=== PATIENT | male | born 1965 | race African-American/Black ===

== ENCOUNTER 2021-08-23 04:34 | Emergency (ER) | payer MEDICAID, SELFPAY ==
[2021-08-23 04:41] VITALS: BP 196/108; PULSE 94; RESP 18; TEMP 36.3; O2SAT 96; BMI 33.0
--- NOTE | 2021-08-23 04:53 | ED_ITS ---
HPI - Ear Problem General Chief complaint: Ear Stated complaint: right ear injury- yesterday Time Seen by Provider: 08/23/21 04:35 Source: patient Mode of arrival: Ambulatory History of Present Illness HPI Narrative: 56M smoker presents with the chief complaint of an accidental injury to his right ear. He states that he was using a Q-tip to clean his ear when he stumbled a bit and fell sideways which cause the Q-tip to jam into his ear. He immediately felt pain and had bleeding and complains of decreased ability to hear from his ear. This happened at about 8:00 p.m. last night. He denies any fever or chills. He is not dizzy or having trouble with ambulation. He denies any nausea or vomiting. His tetanus is over 5 years old. Related Data Home Medications Medication Instructions Recorded Confirmed ketorolac 10 mg tablet 10 mg PO Q6H #0 08/12/12 Review of Systems Review of Systems Narrative: GENERAL: Denies chills, fatigue, malaise, fever, sweats. HEENT: See HPI RESPIRATORY: Denies dyspnea, cough, wheezing, hemoptysis, sputum. CARDIOVASCULAR: Denies chest pain, palpitations, orthopnea, edema, GASTROINTESTINAL: Denies nausea, vomiting, abdominal pain, diarrhea, constipation, melena. : Denies dysuria, frequency, incontinence, hematuria, urinary retention. MUSCULOSKELETAL: denies weakness, joint pain, or bony pain SKIN: Denies rash, skin lesions, or other NEUROLOGIC: Denies weakness, headache, numbness, change in speech, confusion, seizures, incoordination. PSYCHIATRIC: No concerning psychosocial issues. 12 point review of systems is negative except for those stated above Patient History Medical History Allergies (~2004) Anxiety and depression (~2009) Carpal tunnel syndrome (~1984) Chicken pox (~1977) Chronic back pain (~2009) Diabetes mellitus (~2009) Foot pain (~2009) Headache (~2009) Hearing loss History of urinary incontinence (~2009) Hypertension (~2004) Low testosterone (~2009) Near sighted (~2004) Numerous skin moles (~1964) PTSD (post-traumatic stress disorder) (~2011) Restless leg syndrome (~2004) Sleep apnea (~2009) TIA (transient ischemic attack) (~2013) Vision disorder Surgical History Anesthesia History of ankle surgery (~2011) History of carpal tunnel release (~1982) History of rhinoplasty (~1994) History of surgery (~2020) Family History Father Stroke Diabetes mellitus Mother Mental health problem Brother Prostate cancer Sister Hyperlipidemia Social History Smoking Status: Current some day smoker Smoking Status: Current some day smoker Exam Narrative Exam Narrative: GEN: AOx3 and in mild distress EYES: Pupils are equal, round, and reactive to light and accommodation. Ext raoccular muscles are intact bilaterally. There is no subconjunctival hemorrhage or exudate. ENT: R TM ruptured with some blood in the EAC, no contamination or foreign body. CHEST: Lungs are clear to auscultation bilaterally and free of wheezes, rales, or rhonchi. Heart rate is regular rhythm, there are no murmurs, clicks, rubs, or gallops. There is no chest wall tenderness. ABD: Abdomen is soft and nontender. There is no guarding or rebound. Bowel sounds are normal in all 4 quadrants. There is no mass or organomegaly. EXT: Full painless ROM of all extremities with no loss of sensation or strength. SKIN: Warm, pink, and dry. No erythema or rash Initial Vital Signs Initial Vital Signs: Vital Signs Temperature 97.4 F L 08/23/21 04:41 Pulse Rate 94 H 08/23/21 04:41 Respiratory Rate 18 08/23/21 04:41 Blood Pressure 196/108 H 08/23/21 04:41 Pulse Oximetry 96 08/23/21 04:41 Course Orders Ordered: Discontinued Medications Diphtheria/Tetanus/Acell Pertussis (Tet,Diph,Pertuss(Acell),Vac/Pf 0.5 Ml Syringe) 0.5 ml IM .ONCE ONE Stop: 08/23/21 04:50 Vital Signs Vital signs: Vital Signs - 8 hr 08/23/21 04:41 Temperature 97.4 F L Pulse Rate 94 H Respiratory Rate 18 Blood Pressure 196/108 H Pulse Oximetry 96 Medical Decision Making MDM Narrative Medical decision making narrative: Patient has a reassuring history and physical exam. This is a traumatic rupture in the absence of contamination or suspicion of infection. He has no ataxia, profound dizziness or nausea and vomiting. There is no current indication for antibiotics and his pain is well controlled. He lives locally and is appropriate for discharge with close follow-up. Return precautions have been given as questions have been answered to his apparent satisfaction Discharge Plan Departure Patient Disposition: Home Clinical Impression: Acute traumatic puncture of tympanic membrane Activity Restrictions/Additional Instructions: *You have been diagnosed with [acute right sided traumatic tympanic membrane rupture ] *What to do: *Please continue to take your regular medications as directed. *Please follow up with Dr. Jimenez at [facility], call this morning for an appointment. Let them know you were seen in the Emergency Department and that we ask that you be seen in follow up. We will electronically transmit a record of today's note *Return to Emergency Department if you should have any new, worsening or concerning symptoms, such as [fever greater than 101 F, shaking chills, worsening pain, persistent vomiting or other bothersome symptoms] Prescriptions: No Action ketorolac 10 MG tablet 10 mg PO Q6H Qty: 0 0RF Referrals: Farhat Jimenez MD [Physician] - Soni Montenegro MD [Primary Care Provider] -
[2021-08-23] MEDS: TET,DIPH,PERTUSS(ACELL),VAC/PF 0.5 ML SYRINGE IM (04:55)
== END 2021-08-23 05:10 | disposition home or self-care (01) ==
PROVIDERS: Emergency Provider Emergency Medicine; Family Provider Podiatrist; PCP Family Medicine
DX: S09.21XA Traumatic rupture of right ear drum, initial encounter (principal); Z23 Encounter for immunization
CPT/HCPCS: 90471; 99283; 90715

== ENCOUNTER → 2021-12-17 10:59 | Outpatient (CLI) | payer OTHER, MEDICAID, SELFPAY ==
[2021-12-17 11:46] LABS: Hemoglobin A1C% w Est Avg Glu 10.4 % (4.0-6.0)
[2021-12-17 12:15] LABS: Creatinine Urine Random 281.6 mg/dL
[2021-12-17 12:19] LABS: Alanine Aminotransferase 20 IU/L (<50); Albumin 4.1 g/dL (3.5-5.0); Albumin Globulin Ratio 1.2 (1.0-2.8); Alkaline Phosphatase 81 U/L (38-126); Aspartate Aminotransferase 21 IU/L (17-59); BUN Creatinine Ratio 14.7 (6-22); Bilirubin Total 0.6 mg/dL (0.2-1.3); Blood Urea Nitrogen 16 mg/dL (9-20); Calcium 8.8 mg/dL (8.4-10.2); Carbon Dioxide 28 mmol/L (22-32); Chloride 102 mmol/L (98-107); Cholesterol 269 mg/dL (140-199); Estimated Glomerular Filt Rate > 60 mL/min (>60); Globulin 3.4 g/dL (1.7-4.1); Glucose 273 mg/dL (70-100); HDL Cholesterol 37 mg/dL (40-60); HEMOLYSIS < 15 (0-50); LDL Cholesterol Calculated 197 mg/dL (<100); Potassium 3.8 mmol/L (3.4-5.1); Sodium 137 mmol/L (137-145); Total Protein 7.5 g/dL (6.3-8.2); Triglycerides 175 mg/dL (35-150)
[2021-12-17 12:21] LABS: Microalbumi Creatinin Ratio Ur 47.9 ug/mg CR (<30); Microalbumin Urine Random 13.5 mg/dL (0-1.6)
== END ==
PROVIDERS: Family Provider Podiatrist; PCP Family Medicine; Referring Provider Family Medicine; Visit Provider Family Medicine
DX: E11.42 Type 2 diabetes mellitus with diabetic polyneuropathy (principal)
CPT/HCPCS: 36415; 80053; 80061; 82043; 82570; 83036

== ENCOUNTER 2024-02-22 14:30 | Outpatient (RCR) | payer MEDICARE, OTHER, SELFPAY ==
--- NOTE | 2023-12-31 14:27 | PT.OIE ---
Current Diagnoses Radiculopathy, lumbar region (12/31/23) Past Medical History (Last Reviewed 08/23/21 @ 04:56 by Guille Rahman DO) Allergies (~2004) Anxiety and depression (~2009) Carpal tunnel syndrome (~1984) Chicken pox (~1977) Chronic back pain (~2009) Diabetes mellitus (~2009) Foot pain (~2009) Headache (~2009) Hearing loss History of urinary incontinence (~2009) Hypertension (~2004) Low testosterone (~2009) Near sighted (~2004) Numerous skin moles (~1964) PTSD (post-traumatic stress disorder) (~2011) Restless leg syndrome (~2004) Sleep apnea (~2009) TIA (transient ischemic attack) (~2013) Vision disorder Past Surgical History (Last Reviewed 08/23/21 @ 04:56 by Guille Rahman DO) Anesthesia History of ankle surgery (~2011) History of carpal tunnel release (~1982) History of rhinoplasty (~1994) History of surgery (~2020) Visit Care Team Role Provider Type Ana Rosa Matos DO Attending Provider Non-Staff Family Provider Primary Care Provider Referring Provider Specialty: Family Practice Address: [address] [place] [address], [facility] Email: Physical Therapy Initial Evaluation PT-OP-A Visit Information Start: 12/27/23 13:21 Freq: Status: Active Protocol: Document 12/31/23 13:01 [facility] (Rec: 12/31/23 13:50 [facility] [id number]) Out-Patient Physical Therapy Visit Information Visit Information Visit Type Initial Evaluation Visit Note 07/04 Visit Start Time 13:03 Visit Stop Time 13:48 Visit Number 1 Number of CUSTOMER SUCCESS MANAGER Visits 0 PT-OP-B Current Condition Start: 12/27/23 13:21 Freq: Status: Active Protocol: Document 12/31/23 13:01 [facility] (Rec: 12/31/23 13:50 [facility] [id number]) Current Condition History of Current Condition Onset Date worsening in September Current Complaints LBP, B knee pain, R thigh pain History of Current Condition Pt reports back pain starting 10/07/23. 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 he didn't feel it until the following sunday then saw the doctor on sunday. They gave him 2 muscle relaxors and his pain was pretty severe and BP 180/80 ( it had never been that high). He did labwork d/t this and gve him mm relaxors and told him to take tyllenol after that. Pt as told he couldn't get pain meds until starting PT. THat first week, he was in a ton of pain, but once the meds kicked in and the pain subsided some. Pain is mostly at R SI and what scared him the most was pt was getting a dull pain in R quad. He has had neuropathy in the past and had gabapentin fo rthat and had hx of not being able to get out of bed. THe thigh hasn ' been as bad. His knees are now getting sharp pain though and it starts when he sleeps. He sleeps w/pillow btwn legs and feels like poor circulation or first thing before cramp in knees. When he is at his worst, he walks with a cane. hx of 2013 L ankle achilles repair and built up the arch and was supposed to have surgery on R to build up arch but insurance wouldn't cover. 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 He has done PT here in the past (for LB and Knees)and it helped him move better and was DC when he was doing well. He got a membership at [employer] and used treadmill and slowly starting to use the strength machines. He hasn't been able to go back since his back pain inc. 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 He is waiting to resume working until finishes PT. He is in a return to work program w/SS. B knee pain at night has been about 6 months. 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 Treatment Goals Patient/Caregiver Goals Get more mobile ,help him know what to do vs not to do, determine if he needs further assessment from doctors, get strengthening exercises that are safe PT-OP-C Subjective Start: 12/27/23 13:21 Freq: Status: Active Protocol: Document 12/31/23 13:01 [facility] (Rec: 12/31/23 13:50 [facility] [id number]) OP-PT Pain Assessment Location B knees Pain Location Details ant knees Description Sharp Frequency Intermittent Other Pain Aggravating Factors at night; extended activity Other Pain Alleviating Factors change in position (now lingering more) LB Pain Location Details R SI and LB Description Dull Frequency Frequent Radiating Location R ant thigh Pain Aggravating Factors Activity,Walking,Stair Climbing,Bending,Lifting Other Pain Aggravating Factors leaning to R, sit on some seats, Other Pain Alleviating Factors stop activity that hurts it PT-OP-D Balance Start: 12/27/23 13:21 Freq: Status: Active Protocol: Document 12/31/23 13:01 [facility] (Rec: 12/31/23 13[facility]50 [id number] Balance Tests Single Limb Standing Single Limb- Right 20 sec w/inc deviation Single Limb- Left 20 sec PT-OP-F Manual Assessment Start: 12/27/23 13:21 Freq: Status: Active Protocol: Document 12/31/23 13:01 [facility] (Rec: 12/31/23 13:50 [id number] Manual Assessments Joint Mobility Assessment Joint Mobility Assessment L iliac crest is higher PT-OP-G Mobility & Gait Start: 12/27/23 13:21 Freq: Status: Active Protocol: Document 12/31/23 13:01 [facility] (Rec: 12/31/23 13:50 [facility] [id number]) OP Gait Assessment Comments Gait Comments dec stance time RLE, lat lean to R w/RLE stance PT-OP-J Posture/Palpation/Skin Start: 12/27/23 13:21 Freq: Status: Active Protocol: Document 12/31/23 13:01 [facility] (Rec: 12/31/23 13:50 [facility] [id number]) Posture Evaluation Barrera Postural Classification System Vertical Compression Test 2 Elbow Flexion Test 1 Lumbar Protective Mechanism Left AP 0 Lumbar Protective Mechanism Right AP 0 Lumbar Protective Mechanism Left PA 3 Comments Posture Comments L shoulder higher; L pelvic shear, R SB pt rocks side to side to dec pain PT-OP-K Range of Motion Start: 12/27/23 13:21 Freq: Status: Active Protocol: Document 12/31/23 13:01 [facility] (Rec: 12/31/23 13:50 [facility] [id number]) Lumbar Spine Range of Motion Lumbar Spine Active Percentage Flexion 10 Extension 50 Rotation Left 40 Rotation Right 60 Lateral Flexion Left 80 Lateral Flexion Right 50 Comments pain R SB; discomfort w/ext; bend over w/pelvis blocked about mid thigh; mid shins w/o pelvis blocked PT-OP-L Special Tests Start: 12/27/23 13:21 Freq: Status: Active Protocol: Document 12/31/23 13:01 [facility] (Rec: 12/31/23 13:50 [facility] [id number]) Special Tests Lumbar Spine Special Tests ext sit Test Results positive R w/inc tension Slump Test Results positive B w/pain in back-RLE dec range PT-OP-Q Treatments Start: 12/27/23 13:21 Freq: Status: Active Protocol: Document 12/31/23 13:01 [facility] (Rec: 12/31/23 13:50 [facility] [id number]) Self-Care/Home Management Treatment Education Other Education 9 min PT-OP-T Assessment and Plan Start: 12/27/23 13:21 Freq: Status: Active Protocol: Document 12/31/23 13:01 [facility] (Rec: 12/31/23 13:50 [facility] [id number]) Physical Therapy Assessment Rehab Potential Rehabilitation Potential Good Evaluation Complexity Number of Personal Factors/Comorbidities 3 or More Number of Body Systems Impaired 4 or More Clinical Presentation at Evaluation Evolving Impairments Impairments Activity Tolerance,Balance, Functional Activities, Functional Mobility,Gait,Pain, Posture,ROM,Soft Tissue Mobility,Strength,Transfers Goals lifting Short Term Goal (STG) Pt will have fwd flex w/pelvis blocked to at least mid patella and have equal SB ea direction w/o pain STG Duration 02/03 Jail Goal (LTG) Pt will be able to demonstrate good lifting mechanics and turning mechanics w/o cues LTG Duration 03/15 strength Short Term Goal (STG) Pt will be indep w/HEP STG Duration 02/06 Jail Goal (LTG) pt will score at least 3/5 on LPM in all planes and EFT along w/at least 4+/5 on all BLE MMT to show improved stability to allow greater ease in day LTG Duration 03/15 PARISA Impairment 15/50 Short Term Goal (STG) Pt will improve PARISA score to no greater than 10/50 to show improved functional ability. STG Duration 02/03 Jail Goal (LTG) Pt will improve PARISA score to no greater than 5/50 to show improved functional ability. LTG Duration 03/24 Six Impairment sleep Impairment . Short Term Goal (STG) Pt will be able to prop himself indep at home for improved alignment during sleep STG Duration 01/23 Jail Goal (LTG) Pt will be able to sleep through the night and be able to wake w/o increased pain in back, leg or knees LTG Duration 03/14 Assessment Summary Assessment Pt presents w/R sided SI/LBP pain w/R ant thigh pain and B knee pain w/positive neural tension tests B w/inc tension on R. He has dec core stability noted and likely has dec hip stability based on gait, but further testing would be beneficial. He does has some dec balance and gait abonormalities along w/uneven pelvis level and position in standing likely contributing to pain. pt would benefit from skilled PT in order to return to typical function w/o pain. Physical Therapy Plan Frequency and Duration Frequency of Treatment 2x/Week Duration of treatment (weeks) 12 Plan of Care Start Date 12/31/23 Plan of Care End Date 03/24/24 Therapeutic Interventions Therapeutic Interventions Balance Training,Gait Training ,Home Exercise Program,Joint Mobilizations,Manual Therapy, Neuromuscular Re-education, Orthotic/Prosthetic Management ,Patient/Caregiver Education, Self-Care/Home Management,Soft Tissue Mobilization,Taping, Therapeutic Activities, Therapeutic Exercises Modalities Cold Pack/Ice Massage,Electric Stimulation,Hot Packs, Infrared Therapy,Traction- Mechanical,Ultrasound Next Visit Focus/Plan Next Note Type Treatment Note Next Visit Plan MMT BLEs, start hip stretches and supine core exercises including bridges; manual to hip and innominate
--- NOTE | 2023-12-31 14:27 | PT.OPPOC ---
Physical, Occupational & Speech Therapy At [facility] Current Diagnoses Radiculopathy, lumbar region (12/31/23) Visit Care Team Role Provider Type Ana Rosa Matos DO Attending Provider Non-Staff Family Provider Primary Care Provider Referring Provider Specialty: Family Practice Address: [facility] [place], [address] Email: Plan Of Care PT-OP-T Assessment and Plan Start: 12/27/23 13:21 Freq: Status: Active Protocol: Document 12/31/23 13:01 [facility] (Rec: 12/31/23 13:50 [facility] [id number]) Physical Therapy Assessment Rehab Potential Rehabilitation Potential Good Evaluation Complexity Number of Personal Factors/Comorbidities 3 or More Number of Body Systems Impaired 4 or More Clinical Presentation at Evaluation Evolving Impairments Impairments Activity Tolerance,Balance, Functional Activities, Functional Mobility,Gait,Pain, Posture,ROM,Soft Tissue Mobility,Strength,Transfers Goals lifting Short Term Goal (STG) Pt will have fwd flex w/pelvis blocked to at least mid patella and have equal SB ea direction w/o pain STG Duration 02/03 Detention Goal (LTG) Pt will be able to demonstrate good lifting mechanics and turning mechanics w/o cues LTG Duration 03/15 strength Short Term Goal (STG) Pt will be indep w/HEP STG Duration 02/06 Claims Consultant Goal (LTG) pt will score at least 3/5 on LPM in all planes and EFT along w/at least 4+/5 on all BLE MMT to show improved stability to allow greater ease in day LTG Duration 03/15 PARISA Impairment 15/50 Short Term Goal (STG) Pt will improve PARISA score to no greater than 10/50 to show improved functional ability. STG Duration 02/03 Detention Goal (LTG) Pt will improve PARISA score to no greater than 5/50 to show improved functional ability. LTG Duration 03/24 Six Impairment sleep Impairment . Short Term Goal (STG) Pt will be able to prop himself indep at home for improved alignment during sleep STG Duration 01/23 Detention Goal (LTG) Pt will be able to sleep through the night and be able to wake w/o increased pain in back, leg or knees LTG Duration 03/14 Assessment Summary Assessment Pt presents w/R sided SI/LBP pain w/R ant thigh pain and B knee pain w/positive neural tension tests B w/inc tension on R. He has dec core stability noted and likely has dec hip stability based on gait, but further testing would be beneficial. He does has some dec balance and gait abonormalities along w/uneven pelvis level and position in standing likely contributing to pain. pt would benefit from skilled PT in order to return to typical function w/o pain. Physical Therapy Plan Frequency and Duration Frequency of Treatment 2x/Week Duration of treatment (weeks) 12 Plan of Care Start Date 12/31/23 Plan of Care End Date 03/24/24 Therapeutic Interventions Therapeutic Interventions Balance Training,Gait Training ,Home Exercise Program,Joint Mobilizations,Manual Therapy, Neuromuscular Re-education, Orthotic/Prosthetic Management ,Patient/Caregiver Education, Self-Care/Home Management,Soft Tissue Mobilization,Taping, Therapeutic Activities, Therapeutic Exercises Modalities Cold Pack/Ice Massage,Electric Stimulation,Hot Packs, Infrared Therapy,Traction- Mechanical,Ultrasound Next Visit Focus/Plan Next Note Type Treatment Note Next Visit Plan MMT BLEs, start hip stretches and supine core exercises including bridges; manual to hip and innominate Plan of Care Dates Plan of Care Start Date 12/31/23 Plan of Care End Date 03/24/24 Electronically Signed by: Ladan Jimenez, PT 12/31/23 [id number] If you are in agreement with this Plan of Care, please return a signed and dated copy. I have reviewed this Plan of Care and certify that the skilled therapy services above are required to meet the patient?s needs. Physician Signature Date Printed Name and Credentials Clinical Instructor Signature Printed Name and Credentials
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
--- NOTE | 2024-01-10 10:06 | PT-OP ANOTE ---
Phoned patient, spoke with patient regarding no show policy; fee, and discharge with 2 no shows. Patient comments that he doesn't usually have 2 appts and he forgot about this one. 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
--- NOTE | 2024-01-16 15:20 | PT.OTN ---
Current Diagnoses Radiculopathy, lumbar region (01/16/24) Physical Therapy Treatment Note PT-OP-A Visit Information Start: 12/27/23 13:21 Freq: Status: Active Protocol: Document 01/16/24 14:39 [facility] (Rec: 01/16/24 15:20 [facility] [id number]) Out-Patient Physical Therapy Visit Information Visit Information Visit Type Treatment Note Visit Start Time 14:36 Visit Stop Time 15:15 Visit Number 4 Number of CONE TRUCKER Visits 0 PT-OP-B Current Condition Start: 12/27/23 13:21 Freq: Status: Active Protocol: Document 12/31/23 13:01 [facility] (Rec: 12/31/23 13:50 [facility] [id number]) Current Condition History of Current Condition Onset Date worsening in September Current Complaints LBP, B knee pain, R thigh pain History of Current Condition Pt reports back pain starting 10/07/23. 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 he didn't feel it until the following sunday then saw the doctor on sunday. They gave him 2 muscle relaxors and his pain was pretty severe and BP 180/80 ( it had never been that high). He did labwork d/t this and gve him mm relaxors and told him to take tyllenol after that. Pt as told he couldn't get pain meds until starting PT. THat first week, he was in a ton of pain, but once the meds kicked in and the pain subsided some. Pain is mostly at R SI and what scared him the most was pt was getting a dull pain in R quad. He has had neuropathy in the past and had gabapentin fo rthat and had hx of not being able to get out of bed. THe thigh hasn ' been as bad. His knees are now getting sharp pain though and it starts when he sleeps. He sleeps w/pillow btwn legs and feels like poor circulation or first thing before cramp in knees. When he is at his worst, he walks with a cane. hx of 2013 L ankle achilles repair and built up the arch and was supposed to have surgery on R to build up arch but insurance wouldn't cover. 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 He has done PT here in the past (for LB and Knees)and it helped him move better and was DC when he was doing well. He got a membership at [employer] and used treadmill and slowly starting to use the strength machines. He hasn't been able to go back since his back pain inc. 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 He is waiting to resume working until finishes PT. He is in a return to work program w/SS. B knee pain at night has been about 6 months. 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 Treatment Goals Patient/Caregiver Goals Get more mobile ,help him know what to do vs not to do, determine if he needs further assessment from doctors, get strengthening exercises that are safe PT-OP-C Subjective Start: 12/27/23 13:21 Freq: Status: Active Protocol: Document 01/16/24 14:39 [facility] (Rec: 01/16/24 15:20 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 Knees are getting better w/sleeping on back. PT-OP-D Balance Start: 12/27/23 13:21 Freq: Status: Active Protocol: Document 12/31/23 13:01 [facility] (Rec: 12/31/23 13:50 [facility] [id number]) Balance Tests Single Limb Standing Single Limb- Right 20 sec w/inc deviation Single Limb- Left 20 sec PT-OP-F Manual Assessment Start: 12/27/23 13:21 Freq: Status: Active Protocol: Document 12/31/23 13:01 [facility] (Rec: 12/31/23 13:50 [facility] [id number]) Manual Assessments Joint Mobility Assessment Joint Mobility Assessment L iliac crest is higher PT-OP-G Mobility & Gait Start: 12/27/23 13:21 Freq: Status: Active Protocol: Document 12/31/23 13:01 [facility] (Rec: 12/31/23 13:50 [facility] [id number]) OP Gait Assessment Comments Gait Comments dec stance time RLE, lat lean to R w/RLE stance PT-OP-J Posture/Palpation/Skin Start: 12/27/23 13:21 Freq: Status: Active Protocol: Document 12/31/23 13:01 [facility] (Rec: 12/31/23 13:50 [facility] [id number]) Posture Evaluation [facility] Postural Classification System Vertical Compression Test 2 Elbow Flexion Test 1 Lumbar Protective Mechanism Left AP 0 Lumbar Protective Mechanism Right AP 0 Lumbar Protective Mechanism Left PA 3 Comments Posture Comments L shoulder higher; L pelvic shear, R SB pt rocks side to side to dec pain PT-OP-K Range of Motion Start: 12/27/23 13:21 Freq: Status: Active Protocol: Document 12/31/23 13:01 [facility] (Rec: 12/31/23 13:50 [facility] [id number]) Lumbar Spine Range of Motion Lumbar Spine Active Percentage Flexion 10 Extension 50 Rotation Left 40 Rotation Right 60 Lateral Flexion Left 80 Lateral Flexion Right 50 Comments pain R SB; discomfort w/ext; bend over w/pelvis blocked about mid thigh; mid shins w/o pelvis blocked PT-OP-L Special Tests Start: 12/27/23 13:21 Freq: Status: Active Protocol: Document 12/31/23 13:01 [facility] (Rec: 12/31/23 13:50 [facility] [id number]) Special Tests Lumbar Spine Special Tests ext sit Test Results positive R w/inc tension Slump Test Results positive B w/pain in back-RLE dec range PT-OP-Q Treatments Start: 12/27/23 13:21 Freq: Status: Active Protocol: Document 01/16/24 14:39 [facility] (Rec: 01/16/24 15:20 [facility] [id number]) Therapeutic Exercises Supine Exercises abdominal bracing with LE extension Supine Exercise Name LE ext then heel slide Side bilateral Equipment Used x10 figure 4 stretch Side bilateral Reps/Minutes 60 sec Breathing Supine Exercise Name diaphragmatic Side bilateral Reps/Minutes 8 Comments PT facilitation into abdomen TA Side bilateral Reps/Minutes x5 Comments cues breathing BKFO Side bilateral Reps/Minutes 5 B w/o resistance; Lvl 2 x10 Comments V/c/tatile cueing limit back rotation, knee position, knee ankle alignment Stretching Supine Exercise Name Single knee to chest, double knee to chest, Side bilateral Reps/Minutes 60 sec ea Comments VC for single leg knee to chest Manual Therapy Treatment Consent Patient gave verbal consent for manual Yes treatment Soft Tissue Mobilization ITB Body Location B Mobilization Type Rolling Intensity/Depth Moderate Body Position Hooklying Comments w/IR Joint Mobilizations hip Comments B ER free the ball hooklying FM; R IR free the ball hooklying FM; R inf [place] [facility] PT-OP-T Assessment and Plan Start: 12/27/23 13:21 Freq: Status: Active Protocol: Document 01/16/24 14:39 [facility] (Rec: 01/16/24 15:20 [facility] [id number]) Physical Therapy Assessment Goals lifting Short Term Goal (STG) Pt will have fwd flex w/pelvis blocked to at least mid patella and have equal SB ea direction w/o pain STG Duration 02/03 Shelter Goal (LTG) Pt will be able to demonstrate good lifting mechanics and turning mechanics w/o cues LTG Duration 03/15 strength Short Term Goal (STG) Pt will be indep w/HEP STG Duration 02/06 Shelter Goal (LTG) pt will score at least 3/5 on LPM in all planes and EFT along w/at least 4+/5 on all BLE MMT to show improved stability to allow greater ease in day LTG Duration 03/15 PARISA Impairment 15/50 Short Term Goal (STG) Pt will improve PARISA score to no greater than 10/50 to show improved functional ability. STG Duration 02/03 Recreation Clerk Goal (LTG) Pt will improve PARISA score to no greater than 5/50 to show improved functional ability. LTG Duration 03/24 Six Impairment sleep Impairment . Short Term Goal (STG) Pt will be able to prop himself indep at home for improved alignment during sleep STG Duration 01/23 Shelter Goal (LTG) Pt will be able to sleep through the night and be able to wake w/o increased pain in back, leg or knees LTG Duration 03/14 Assessment Summary Assessment Pt did well with exercises and required very min cues. No inc pain w/addition of resistance Physical Therapy Plan Frequency and Duration Frequency of Treatment 2x/Week Duration of treatment (weeks) 12 Plan of Care Start Date 12/31/23 Plan of Care End Date 03/24/24 Next Visit Focus/Plan Next Note Type Treatment Note Next Visit Plan cont core exercises; work on hip and innominate mobility
--- NOTE | 2024-01-23 13:00 | PT.OTN ---
Current Diagnoses Radiculopathy, lumbar region (01/23/24) Physical Therapy Treatment Note PT-OP-A Visit Information Start: 12/27/23 13:21 Freq: Status: Active Protocol: Document 01/23/24 08:08 [facility] (Rec: 01/23/24 10:32 [facility] [id number]) Out-Patient Physical Therapy Visit Information Visit Information Visit Type Treatment Note Visit Note 09/01 Access Code: [email or web address] Visit Start Time 09:48 Visit Stop Time 10:30 Visit Number 5 Number of HOSPICE EDUCATOR Visits 1 PT-OP-B Current Condition Start: 12/27/23 13:21 Freq: Status: Active Protocol: Document 12/31/23 13:01 [facility] (Rec: 12/31/23 13:50 [facility] [id number]) Current Condition History of Current Condition Onset Date worsening in September Current Complaints LBP, B knee pain, R thigh pain History of Current Condition Pt reports back pain starting 10/07/23. 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 he didn't feel it until the following sunday then saw the doctor on sunday. They gave him 2 muscle relaxors and his pain was pretty severe and BP 180/80 ( it had never been that high). He did labwork d/t this and gve him mm relaxors and told him to take tyllenol after that. Pt as told he couldn't get pain meds until starting PT. THat first week, he was in a ton of pain, but once the meds kicked in and the pain subsided some. Pain is mostly at R SI and what scared him the most was pt was getting a dull pain in R quad. He has had neuropathy in the past and had gabapentin fo rthat and had hx of not being able to get out of bed. THe thigh hasn ' been as bad. His knees are now getting sharp pain though and it starts when he sleeps. He sleeps w/pillow btwn legs and feels like poor circulation or first thing before cramp in knees. When he is at his worst, he walks with a cane. hx of 2013 L ankle achilles repair and built up the arch and was supposed to have surgery on R to build up arch but insurance wouldn't cover. 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 He has done PT here in the past (for LB and Knees)and it helped him move better and was DC when he was doing well. He got a membership at [employer] and used treadmill and slowly starting to use the strength machines. He hasn't been able to go back since his back pain inc. 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 He is waiting to resume working until finishes PT. He is in a return to work program w/SS. B knee pain at night has been about 6 months. 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 Treatment Goals Patient/Caregiver Goals Get more mobile ,help him know what to do vs not to do, determine if he needs further assessment from doctors, get strengthening exercises that are safe PT-OP-C Subjective Start: 12/27/23 13:21 Freq: Status: Active Protocol: Document 01/23/24 08:08 [facility] (Rec: 01/23/24 10:32 [id number]) OP-PT Subjective Patient Comments Patient Comments Patient reports the back is better, reports back to football practice performing squats, standing 2 hours and stretching. Patient reports having bilateral hip pain post football practice. Patient rates back pain 1/10 hips 2/10 . left HS lacking 25 deg right 30 AROM 90/90 position PT-OP-D Balance Start: 12/27/23 13:21 Freq: Status: Active Protocol: Document 12/31/23 13:01 [facility] (Rec: 12/31/23 13:50 [facility] [id number]) Balance Tests Single Limb Standing Single Limb- Right 20 sec w/inc deviation Single Limb- Left 20 sec PT-OP-F Manual Assessment Start: 12/27/23 13:21 Freq: Status: Active Protocol: Document 12/31/23 13:01 [facility] (Rec: 12/31/23 13:50 [facility] [id number]) Manual Assessments Joint Mobility Assessment Joint Mobility Assessment L iliac crest is higher PT-OP-G Mobility & Gait Start: 12/27/23 13:21 Freq: Status: Active Protocol: Document 12/31/23 13:01 [facility] (Rec: 12/31/23 13:50 [facility] [id number]) OP Gait Assessment Comments Gait Comments dec stance time RLE, lat lean to R w/RLE stance PT-OP-J Posture/Palpation/Skin Start: 12/27/23 13:21 Freq: Status: Active Protocol: Document 12/31/23 13:01 [facility] (Rec: 12/31/23 13:50 [facility] [id number]) Posture Evaluation [facility] Postural Classification System Vertical Compression Test 2 Elbow Flexion Test 1 Lumbar Protective Mechanism Left AP 0 Lumbar Protective Mechanism Right AP 0 Lumbar Protective Mechanism Left PA 3 Comments Posture Comments L shoulder higher; L pelvic shear, R SB pt rocks side to side to dec pain PT-OP-K Range of Motion Start: 12/27/23 13:21 Freq: Status: Active Protocol: Document 12/31/23 13:01 [facility] (Rec: 12/31/23 13:50 [facility] [id number]) Lumbar Spine Range of Motion Lumbar Spine Active Percentage Flexion 10 Extension 50 Rotation Left 40 Rotation Right 60 Lateral Flexion Left 80 Lateral Flexion Right 50 Comments pain R SB; discomfort w/ext; bend over w/pelvis blocked about mid thigh; mid shins w/o pelvis blocked PT-OP-L Special Tests Start: 12/27/23 13:21 Freq: Status: Active Protocol: Document 12/31/23 13:01 [facility] (Rec: 12/31/23 13:50 [facility] [id number]) Special Tests Lumbar Spine Special Tests ext sit Test Results positive R w/inc tension Slump Test Results positive B w/pain in back-RLE dec range PT-OP-Q Treatments Start: 12/27/23 13:21 Freq: Status: Active Protocol: Document 01/23/24 08:08 [facility] (Rec: 01/23/24 10:32 [facility] [id number]) Therapeutic Exercises Supine Exercises HS stretch Side bilateral Reps/Minutes 60 sec X 2 each LE figure 4 stretch Side bilateral Reps/Minutes 60 sec Stretching Supine Exercise Name Single knee to chest, double knee to chest, Side bilateral Reps/Minutes 60 sec ea Comments VC for breathing from diaphragm Sitting Exercises seated hip abduction with band Side bilateral Resistance level 3 green band Reps/Minutes X15 without hold then X1 one minute hold Standing Exercises Pallof press Side bilateral Resistance level 3 band green Reps/Minutes 15 X 2 squat Standing Exercise Name with band Side bilateral Resistance level 3 band Reps/Minutes X15 X 2 Therapeutic Activity Therapeutic Activity sit to stand Reps/Minutes X5 Comments Patient ed mechanics of sit to stand and self tactile cues for hip hinge. Manual Therapy Treatment Soft Tissue Mobilization gluteal, piriformis area Body Location bilateral Mobilization Type Cross-Friction,Rolling Intensity/Depth Moderate Body Position Sidelying LB Body Location lumbar paraspinals bilateral Mobilization Type Sustained Pressure Intensity/Depth Moderate Body Position Sidelying PT-OP-T Assessment and Plan Start: 12/27/23 13:21 Freq: Status: Active Protocol: Document 01/23/24 08:08 [facility] (Rec: 01/23/24 10:32 [facility] [id number]) Physical Therapy Assessment Goals lifting Short Term Goal (STG) Pt will have fwd flex w/pelvis blocked to at least mid patella and have equal SB ea direction w/o pain STG Duration 02/03 Pocket Builder Goal (LTG) Pt will be able to demonstrate good lifting mechanics and turning mechanics w/o cues LTG Duration 03/15 strength Short Term Goal (STG) Pt will be indep w/HEP STG Duration 02/06 Pocket Builder Goal (LTG) pt will score at least 3/5 on LPM in all planes and EFT along w/at least 4+/5 on all BLE MMT to show improved stability to allow greater ease in day LTG Duration 03/15 PARISA Impairment 15/50 Short Term Goal (STG) Pt will improve PARISA score to no greater than 10/50 to show improved functional ability. STG Duration 02/03 Skilled Nursing Goal (LTG) Pt will improve PARISA score to no greater than 5/50 to show improved functional ability. LTG Duration 03/24 Six Impairment sleep Impairment . Short Term Goal (STG) Pt will be able to prop himself indep at home for improved alignment during sleep STG Duration 01/23 Pocket Builder Goal (LTG) Pt will be able to sleep through the night and be able to wake w/o increased pain in back, leg or knees LTG Duration 03/14 Assessment Summary Assessment Sánchez reports feeling good end of session. Good follow through with hip hinge during squats. Patient into session with reports of no increased back pain with assisting with football practice. Physical Therapy Plan Frequency and Duration Frequency of Treatment 2x/Week Duration of treatment (weeks) 12 Plan of Care Start Date 12/31/23 Plan of Care End Date 03/24/24 Next Visit Focus/Plan Next Note Type Treatment Note Next Visit Plan cont core exercises; work on hip and innominate mobility
--- NOTE | 2024-01-29 16:09 | PT.OTN ---
Current Diagnoses Radiculopathy, lumbar region (01/29/24) Physical Therapy Treatment Note PT-OP-A Visit Information Start: 12/27/23 13:21 Freq: Status: Active Protocol: Document 01/29/24 15:18 [facility] (Rec: 01/29/24 16:09 [facility] [id number]) Out-Patient Physical Therapy Visit Information Visit Information Visit Type Treatment Note Visit Note 10/02 Access Code: [email or web address] Visit Start Time 15:20 Visit Stop Time 16:00 Visit Number 6 Number of DONOR SERVICES TEAM LEADER Visits 0 PT-OP-B Current Condition Start: 12/27/23 13:21 Freq: Status: Active Protocol: Document 12/31/23 13:01 [facility] (Rec: 12/31/23 13:50 [facility] [id number]) Current Condition History of Current Condition Onset Date worsening in September Current Complaints LBP, B knee pain, R thigh pain History of Current Condition Pt reports back pain starting 10/07/23. 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 he didn't feel it until the following sunday then saw the doctor on sunday. They gave him 2 muscle relaxors and his pain was pretty severe and BP 180/80 ( it had never been that high). He did labwork d/t this and gve him mm relaxors and told him to take tyllenol after that. Pt as told he couldn't get pain meds until starting PT. THat first week, he was in a ton of pain, but once the meds kicked in and the pain subsided some. Pain is mostly at R SI and what scared him the most was pt was getting a dull pain in R quad. He has had neuropathy in the past and had gabapentin fo rthat and had hx of not being able to get out of bed. THe thigh hasn ' been as bad. His knees are now getting sharp pain though and it starts when he sleeps. He sleeps w/pillow btwn legs and feels like poor circulation or first thing before cramp in knees. When he is at his worst, he walks with a cane. hx of 2013 L ankle achilles repair and built up the arch and was supposed to have surgery on R to build up arch but insurance wouldn't cover. 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 He has done PT here in the past (for LB and Knees)and it helped him move better and was DC when he was doing well. He got a membership at [employer] and used treadmill and slowly starting to use the strength machines. He hasn't been able to go back since his back pain inc. 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 He is waiting to resume working until finishes PT. He is in a return to work program w/SS. B knee pain at night has been about 6 months. 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 Treatment Goals Patient/Caregiver Goals Get more mobile ,help him know what to do vs not to do, determine if he needs further assessment from doctors, get strengthening exercises that are safe PT-OP-C Subjective Start: 12/27/23 13:21 Freq: Status: Active Protocol: Document 01/29/24 15:18 [facility] (Rec: 01/29/24 16:[id number] OP-PT Subjective Patient Comments Patient Comments pt reports feels like back is getting better when standing PT-OP-D Balance Start: 12/27/23 13:21 Freq: Status: Active Protocol: Document 12/31/23 13:01 [facility] (Rec: 12/31/23 13:50 [facility] [id number]) Balance Tests Single Limb Standing Single Limb- Right 20 sec w/inc deviation Single Limb- Left 20 sec PT-OP-F Manual Assessment Start: 12/27/23 13:21 Freq: Status: Active Protocol: Document 12/31/23 13:01 [facility] (Rec: 12/31/23 13:50 [facility] [id number]) Manual Assessments Joint Mobility Assessment Joint Mobility Assessment L iliac crest is higher PT-OP-G Mobility & Gait Start: 12/27/23 13:21 Freq: Status: Active Protocol: Document 12/31/23 13:01 [facility] (Rec: 12/31/23 13:50 [facility] [id number]) OP Gait Assessment Comments Gait Comments dec stance time RLE, lat lean to R w/RLE stance PT-OP-J Posture/Palpation/Skin Start: 12/27/23 13:21 Freq: Status: Active Protocol: Document 12/31/23 13:01 [facility] (Rec: 12/31/23 13:50 [facility] [id number]) Posture Evaluation [facility] Postural Classification System Vertical Compression Test 2 Elbow Flexion Test 1 Lumbar Protective Mechanism Left AP 0 Lumbar Protective Mechanism Right AP 0 Lumbar Protective Mechanism Left PA 3 Comments Posture Comments L shoulder higher; L pelvic shear, R SB pt rocks side to side to dec pain PT-OP-K Range of Motion Start: 12/27/23 13:21 Freq: Status: Active Protocol: Document 12/31/23 13:01 [facility] (Rec: 12/31/23 13:50 [facility] [id number]) Lumbar Spine Range of Motion Lumbar Spine Active Percentage Flexion 10 Extension 50 Rotation Left 40 Rotation Right 60 Lateral Flexion Left 80 Lateral Flexion Right 50 Comments pain R SB; discomfort w/ext; bend over w/pelvis blocked about mid thigh; mid shins w/o pelvis blocked PT-OP-L Special Tests Start: 12/27/23 13:21 Freq: Status: Active Protocol: Document 12/31/23 13:01 [facility] (Rec: 12/31/23 13:50 [facility] [id number]) Special Tests Lumbar Spine Special Tests ext sit Test Results positive R w/inc tension Slump Test Results positive B w/pain in back-RLE dec range PT-OP-Q Treatments Start: 12/27/23 13:21 Freq: Status: Active Protocol: Document 01/29/24 15:18 [facility] (Rec: 01/29/24 16:09 [facility] [id number]) Gym Equipment Therapeutic Ball seated Ball Size/Color lg red Body Position Sitting Reps/Duration 12 ea Comments 1. pelvic tilt 2. pelvic circles CW/CCW 3. august 4.hip hinge back Therapeutic Exercises Standing Exercises hip ext Side bilateral Equipment Used L3 at knees Reps/Minutes 15 ea Comments hinged at hips w/forearms on bar sidestep Side bilateral Equipment Used L3 band at knees Reps/Minutes 20ft x2 ea Pallof press Side bilateral Resistance level 3 band green Reps/Minutes 20 squat Standing Exercise Name with band Side bilateral Resistance level 3 band Reps/Minutes X15 X 2 Manual Therapy Treatment Consent Patient gave verbal consent for manual Yes treatment Soft Tissue Mobilization gluteal, piriformis area Body Location bilateral Mobilization Type Cross-Friction,Rolling Intensity/Depth Moderate Body Position Sidelying LB Body Location lumbar paraspinals bilateral Mobilization Type Sustained Pressure Intensity/Depth Moderate Body Position Sidelying Joint Mobilizations hip Joint R inf med for abd FM PT-OP-T Assessment and Plan Start: 12/27/23 13:21 Freq: Status: Active Protocol: Document 01/29/24 15:18 [facility] (Rec: 01/29/24 16:09 [facility] [id number]) Physical Therapy Assessment Goals lifting Short Term Goal (STG) Pt will have fwd flex w/pelvis blocked to at least mid patella and have equal SB ea direction w/o pain STG Duration 02/03 Expanded Function Dental Assistant Goal (LTG) Pt will be able to demonstrate good lifting mechanics and turning mechanics w/o cues LTG Duration 03/15 strength Short Term Goal (STG) Pt will be indep w/HEP STG Duration 02/06 Senior Care Goal (LTG) pt will score at least 3/5 on LPM in all planes and EFT along w/at least 4+/5 on all BLE MMT to show improved stability to allow greater ease in day LTG Duration 03/15 PARISA Impairment 15/50 Short Term Goal (STG) Pt will improve PARISA score to no greater than 10/50 to show improved functional ability. STG Duration 02/03 Expanded Function Dental Assistant Goal (LTG) Pt will improve PARISA score to no greater than 5/50 to show improved functional ability. LTG Duration 03/24 Six Impairment sleep Impairment . Short Term Goal (STG) Pt will be able to prop himself indep at home for improved alignment during sleep STG Duration 01/23 Expanded Function Dental Assistant Goal (LTG) Pt will be able to sleep through the night and be able to wake w/o increased pain in back, leg or knees LTG Duration 03/14 Assessment Summary Assessment Pt did well with new exercises w/cues needed for neutral spine and working on spinal stabilty w/hip strengthening. He reports relief w/back on tball Physical Therapy Plan Frequency and Duration Frequency of Treatment 2x/Week Duration of treatment (weeks) 12 Plan of Care Start Date 12/31/23 Plan of Care End Date 03/24/24 Next Visit Focus/Plan Next Note Type Treatment Note Next Visit Plan cont core and hip strength exercises; work on hip and innominate mobility
--- NOTE | 2024-01-31 14:44 | PT.OTN ---
Current Diagnoses Radiculopathy, lumbar region (01/31/24) Physical Therapy Treatment Note PT-OP-A Visit Information Start: 12/27/23 13:21 Freq: Status: Active Protocol: Document 01/31/24 13:49 [facility] (Rec: 01/31/24 14:44 [facility] [id number]) Out-Patient Physical Therapy Visit Information Visit Information Visit Type Treatment Note Visit Note 11/01 Access Code: [email or web address] Visit Start Time 13:50 Visit Stop Time 14:36 Visit Number 7 Number of DIESEL TECHNICIAN MECHANIC Visits 1 PT-OP-B Current Condition Start: 12/27/23 13:21 Freq: Status: Active Protocol: Document 12/31/23 13:01 [facility] (Rec: 12/31/23 13:50 [facility] [id number]) Current Condition History of Current Condition Onset Date worsening in September Current Complaints LBP, B knee pain, R thigh pain History of Current Condition Pt reports back pain starting 10/07/23. 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 he didn't feel it until the following sunday then saw the doctor on sunday. They gave him 2 muscle relaxors and his pain was pretty severe and BP 180/80 ( it had never been that high). He did labwork d/t this and gve him mm relaxors and told him to take tyllenol after that. Pt as told he couldn't get pain meds until starting PT. THat first week, he was in a ton of pain, but once the meds kicked in and the pain subsided some. Pain is mostly at R SI and what scared him the most was pt was getting a dull pain in R quad. He has had neuropathy in the past and had gabapentin fo rthat and had hx of not being able to get out of bed. THe thigh hasn ' been as bad. His knees are now getting sharp pain though and it starts when he sleeps. He sleeps w/pillow btwn legs and feels like poor circulation or first thing before cramp in knees. When he is at his worst, he walks with a cane. hx of 2013 L ankle achilles repair and built up the arch and was supposed to have surgery on R to build up arch but insurance wouldn't cover. 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 He has done PT here in the past (for LB and Knees)and it helped him move better and was DC when he was doing well. He got a membership at [employer] and used treadmill and slowly starting to use the strength machines. He hasn't been able to go back since his back pain inc. 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 He is waiting to resume working until finishes PT. He is in a return to work program w/SS. B knee pain at night has been about 6 months. 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 Treatment Goals Patient/Caregiver Goals Get more mobile ,help him know what to do vs not to do, determine if he needs further assessment from doctors, get strengthening exercises that are safe PT-OP-C Subjective Start: 12/27/23 13:21 Freq: Status: Active Protocol: Document 01/31/24 13:49 [facility] (Rec: 01/31/24 14:44 [facility] [id number]) OP-PT Subjective Patient Comments Patient Comments Patient reports having severe pain when standing at foot ball practice. Patient reports pain starts to increase post 1 hour and he has to stand for 2.5 hours during practice. Patient reports he does to the side shuffles at practice. Patient reports left LE felt less steady during exercise previous session, but didn't mention it to PT. SLS 15 + with minimal sway with visual scanning and head turns left and right LE without UE use. PT-OP-D Balance Start: 12/27/23 13:21 Freq: Status: Active Protocol: Document 12/31/23 13:01 [facility] (Rec: 12/31/23 13:50 [facility] [id number]) Balance Tests Single Limb Standing Single Limb- Right 20 sec w/inc deviation Single Limb- Left 20 sec PT-OP-F Manual Assessment Start: 12/27/23 13:21 Freq: Status: Active Protocol: Document 12/31/23 13:01 [facility] (Rec: 12/31/23 13:50 [facility] [id number]) Manual Assessments Joint Mobility Assessment Joint Mobility Assessment L iliac crest is higher PT-OP-G Mobility & Gait Start: 12/27/23 13:21 Freq: Status: Active Protocol: Document 12/31/23 13:01 [facility] (Rec: 12/31/23 13:50 [facility] [id number]) OP Gait Assessment Comments Gait Comments dec stance time RLE, lat lean to R w/RLE stance PT-OP-J Posture/Palpation/Skin Start: 12/27/23 13:21 Freq: Status: Active Protocol: Document 12/31/23 13:01 [facility] (Rec: 12/31/23 13:50 [facility] [id number]) Posture Evaluation [facility] Postural Classification System Vertical Compression Test 2 Elbow Flexion Test 1 Lumbar Protective Mechanism Left AP 0 Lumbar Protective Mechanism Right AP 0 Lumbar Protective Mechanism Left PA 3 Comments Posture Comments L shoulder higher; L pelvic shear, R SB pt rocks side to side to dec pain PT-OP-K Range of Motion Start: 12/27/23 13:21 Freq: Status: Active Protocol: Document 12/31/23 13:01 [facility] (Rec: 12/31/23 13:50 [facility] [id number]) Lumbar Spine Range of Motion Lumbar Spine Active Percentage Flexion 10 Extension 50 Rotation Left 40 Rotation Right 60 Lateral Flexion Left 80 Lateral Flexion Right 50 Comments pain R SB; discomfort w/ext; bend over w/pelvis blocked about mid thigh; mid shins w/o pelvis blocked PT-OP-L Special Tests Start: 12/27/23 13:21 Freq: Status: Active Protocol: Document 12/31/23 13:01 [facility] (Rec: 12/31/23 13:50 [facility] [id number]) Special Tests Lumbar Spine Special Tests ext sit Test Results positive R w/inc tension Slump Test Results positive B w/pain in back-RLE dec range PT-OP-Q Treatments Start: 12/27/23 13:21 Freq: Status: Active Protocol: Document 01/31/24 13:49 [facility] (Rec: 01/31/24 14:44 [facility] [id number]) Therapeutic Exercises Supine Exercises [place] stretch edge of bed Side bilateral Reps/Minutes one minute X2 each LE Comments Verbal cues for LE positioning and breating from diaphragm abdominal bracing with LE extension Supine Exercise Name LE ext then heel slide Side bilateral Equipment Used x10 Sitting Exercises [place] ball exercises Sitting Exercise Name 1. pelvic rotation 2.marching Reps/Minutes 1. X8 each direction 2.X10 Comments Verbal cues to avoid allowing ball to move with marching seated hip abduction with band Side bilateral Resistance Level 4 blue band Reps/Minutes X15 without hold then X1 one minute hold Standing Exercises Pallof press Side bilateral Resistance level 4 royal blue band Reps/Minutes X10 each side squat Standing Exercise Name with band Side bilateral Resistance level4 band Reps/Minutes X15 Therapeutic Activity Therapeutic Activity Standing positioning Reps/Minutes left and right LE X 1 Comments Verbal cues to rest one LE on an object ( bottom of tray table in clinic ) Patient ed to avoid using the same LE all the time ie alternate equally self MET Name for right AI left PI and pubic shotgun Reps/Minutes 6 sec X 6 each Comments seated, verbal cues Manual Therapy Treatment Soft Tissue Mobilization gluteal, piriformis area Body Location bilateral Mobilization Type Cross-Friction,Rolling Intensity/Depth Moderate Body Position Sidelying LB Body Location lumbar paraspinals bilateral Mobilization Type Sustained Pressure Intensity/Depth Moderate Body Position Sidelying PT-OP-T Assessment and Plan Start: 12/27/23 13:21 Freq: Status: Active Protocol: Document 01/31/24 13:49 [facility] (Rec: 01/31/24 14:44 [facility] [id number]) Physical Therapy Assessment Goals lifting Short Term Goal (STG) Pt will have fwd flex w/pelvis blocked to at least mid patella and have equal SB ea direction w/o pain STG Duration 02/03 Insurance And Financial Services Agent Goal (LTG) Pt will be able to demonstrate good lifting mechanics and turning mechanics w/o cues LTG Duration 03/15 strength Short Term Goal (STG) Pt will be indep w/HEP STG Duration 02/06 Insurance And Financial Services Agent Goal (LTG) pt will score at least 3/5 on LPM in all planes and EFT along w/at least 4+/5 on all BLE MMT to show improved stability to allow greater ease in day LTG Duration 03/15 PARISA Impairment 15/50 Short Term Goal (STG) Pt will improve PARISA score to no greater than 10/50 to show improved functional ability. STG Duration 02/03 Long-Term Goal (LTG) Pt will improve PARISA score to no greater than 5/50 to show improved functional ability. LTG Duration 03/24 Six Impairment sleep Impairment . Short Term Goal (STG) Pt will be able to prop himself indep at home for improved alignment during sleep STG Duration 01/23 Long-Term Goal (LTG) Pt will be able to sleep through the night and be able to wake w/o increased pain in back, leg or knees LTG Duration 03/14 Assessment Summary Assessment Patient reports feeling stretched end of session. Good control of ball on initiation of seated marching, unsteady ~4th rep, but recovered and then able to perform with the ball steady throughout remainder of repetitions. Physical Therapy Plan Frequency and Duration Frequency of Treatment 2x/Week Duration of treatment (weeks) 12 Plan of Care Start Date 12/31/23 Plan of Care End Date 03/24/24 Next Visit Focus/Plan Next Note Type Treatment Note Next Visit Plan cont core and hip strength exercises; work on hip and innominate mobility
--- NOTE | 2024-02-06 12:46 | PT.OTN ---
Current Diagnoses Radiculopathy, lumbar region (02/06/24) Physical Therapy Treatment Note PT-OP-A Visit Information Start: 12/27/23 13:21 Freq: Status: Active Protocol: Document 02/06/24 10:38 AB (Rec: 02/06/24 12:46 AB [id number]) Out-Patient Physical Therapy Visit Information Visit Information Visit Type Treatment Note Visit Note 01/01 Access Code: [email or web address] Patient late Visit Start Time 10:54 Visit Stop Time 11:16 Visit Number 8 Number of PRINT DECORATOR Visits 2 PT-OP-B Current Condition Start: 12/27/23 13:21 Freq: Status: Active Protocol: Document 12/31/23 13:01 [facility] (Rec: 12/31/23 13:50 [facility] [id number]) Current Condition History of Current Condition Onset Date worsening in September Current Complaints LBP, B knee pain, R thigh pain History of Current Condition Pt reports back pain starting 10/07/23. 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 he didn't feel it until the following sunday then saw the doctor on sunday. They gave him 2 muscle relaxors and his pain was pretty severe and BP 180/80 ( it had never been that high). He did labwork d/t this and gve him mm relaxors and told him to take tyllenol after that. Pt as told he couldn't get pain meds until starting PT. THat first week, he was in a ton of pain, but once the meds kicked in and the pain subsided some. Pain is mostly at R SI and what scared him the most was pt was getting a dull pain in R quad. He has had neuropathy in the past and had gabapentin fo rthat and had hx of not being able to get out of bed. THe thigh hasn ' been as bad. His knees are now getting sharp pain though and it starts when he sleeps. He sleeps w/pillow btwn legs and feels like poor circulation or first thing before cramp in knees. When he is at his worst, he walks with a cane. hx of 2013 L ankle achilles repair and built up the arch and was supposed to have surgery on R to build up arch but insurance wouldn't cover. 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 He has done PT here in the past (for LB and Knees)and it helped him move better and was DC when he was doing well. He got a membership at [employer] and used treadmill and slowly starting to use the strength machines. He hasn't been able to go back since his back pain inc. 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 He is waiting to resume working until finishes PT. He is in a return to work program w/SS. B knee pain at night has been about 6 months. 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 Treatment Goals Patient/Caregiver Goals Get more mobile ,help him know what to do vs not to do, determine if he needs further assessment from doctors, get strengthening exercises that are safe PT-OP-C Subjective Start: 12/27/23 13:21 Freq: Status: Active Protocol: Document 02/06/24 10:38 AB (Rec: 02/06/24 12:46 AB [id number]) OP-PT Subjective Patient Comments Patient Comments Patient reports football practice is getting better, but still has pain with increased standing. Patient rates standing tolerance at 1 to 1.5 hours. PT-OP-D Balance Start: 12/27/23 13:21 Freq: Status: Active Protocol: Document 12/31/23 13:01 [facility] (Rec: 12/31/23 13:50 [facility] [id number]) Balance Tests Single Limb Standing Single Limb- Right 20 sec w/inc deviation Single Limb- Left 20 sec PT-OP-F Manual Assessment Start: 12/27/23 13:21 Freq: Status: Active Protocol: Document 12/31/23 13:01 [facility] (Rec: 12/31/23 13:50 [facility] [id number]) Manual Assessments Joint Mobility Assessment Joint Mobility Assessment L iliac crest is higher PT-OP-G Mobility & Gait Start: 12/27/23 13:21 Freq: Status: Active Protocol: Document 12/31/23 13:01 [facility] (Rec: 12/31/23 13:50 [facility] [id number]) OP Gait Assessment Comments Gait Comments dec stance time RLE, lat lean to R w/RLE stance PT-OP-J Posture/Palpation/Skin Start: 12/27/23 13:21 Freq: Status: Active Protocol: Document 12/31/23 13:01 [facility] (Rec: 12/31/23 13:50 [facility] [id number]) Posture Evaluation [facility] Postural Classification System Vertical Compression Test 2 Elbow Flexion Test 1 Lumbar Protective Mechanism Left AP 0 Lumbar Protective Mechanism Right AP 0 Lumbar Protective Mechanism Left PA 3 Comments Posture Comments L shoulder higher; L pelvic shear, R SB pt rocks side to side to dec pain PT-OP-K Range of Motion Start: 12/27/23 13:21 Freq: Status: Active Protocol: Document 12/31/23 13:01 [facility] (Rec: 12/31/23 13:50 [facility] [id number]) Lumbar Spine Range of Motion Lumbar Spine Active Percentage Flexion 10 Extension 50 Rotation Left 40 Rotation Right 60 Lateral Flexion Left 80 Lateral Flexion Right 50 Comments pain R SB; discomfort w/ext; bend over w/pelvis blocked about mid thigh; mid shins w/o pelvis blocked PT-OP-L Special Tests Start: 12/27/23 13:21 Freq: Status: Active Protocol: Document 12/31/23 13:01 [facility] (Rec: 12/31/23 13:50 [facility] [id number]) Special Tests Lumbar Spine Special Tests ext sit Test Results positive R w/inc tension Slump Test Results positive B w/pain in back-RLE dec range PT-OP-Q Treatments Start: 12/27/23 13:21 Freq: Status: Active Protocol: Document 02/06/24 10:38 AB (Rec: 02/06/24 12:46 AB [id number]) Therapeutic Exercises Supine Exercises Chacho stretch edge of bed Side bilateral Reps/Minutes one minute X1 each LE Comments with AROM knee flexon Standing Exercises hip flexor stretch on step Standing Exercise Name to perform at foot ball practice HEP Side bilateral Reps/Minutes 60 sec X1 each LE Comments verbal and visual cues Manual Therapy Treatment Soft Tissue Mobilization gluteal, piriformis area Body Location bilateral Mobilization Type Cross-Friction,Rolling Intensity/Depth Moderate Body Position Sidelying Joint Mobilizations right hip Direction inf Grade III Body Position Hooklying Reps/Duration X10 X 3 Manual Techniques contract relax Type into hip flexion and into hip IR right hip Body Position Hooklying Reps/Duration X3 each PT-OP-T Assessment and Plan Start: 12/27/23 13:21 Freq: Status: Active Protocol: Document 02/06/24 10:38 AB (Rec: 02/06/24 12:46 AB [id number]) Physical Therapy Assessment Goals lifting Short Term Goal (STG) Pt will have fwd flex w/pelvis blocked to at least mid patella and have equal SB ea direction w/o pain STG Duration 02/03 Retirement Goal (LTG) Pt will be able to demonstrate good lifting mechanics and turning mechanics w/o cues LTG Duration 03/15 strength Short Term Goal (STG) Pt will be indep w/HEP STG Duration 02/06 Mercury Cracking Tester Goal (LTG) pt will score at least 3/5 on LPM in all planes and EFT along w/at least 4+/5 on all BLE MMT to show improved stability to allow greater ease in day LTG Duration 03/15 PARISA Impairment 15/50 Short Term Goal (STG) Pt will improve PARISA score to no greater than 10/50 to show improved functional ability. STG Duration 02/03 Mercury Cracking Tester Goal (LTG) Pt will improve PARISA score to no greater than 5/50 to show improved functional ability. LTG Duration 03/24 Six Impairment sleep Impairment . Short Term Goal (STG) Pt will be able to prop himself indep at home for improved alignment during sleep STG Duration 01/23 Mercury Cracking Tester Goal (LTG) Pt will be able to sleep through the night and be able to wake w/o increased pain in back, leg or knees LTG Duration 03/14 Assessment Summary Assessment Patient reports having no pain end of session, from 08/04 start of session and comments feels looser. Physical Therapy Plan Therapeutic Interventions Therapeutic Interventions Balance Training,Gait Training ,Home Exercise Program,Joint Mobilizations,Manual Therapy, Neuromuscular Re-education, Orthotic/Prosthetic Management ,Patient/Caregiver Education, Self-Care/Home Management,Soft Tissue Mobilization,Taping, Therapeutic Activities, Therapeutic Exercises Modalities Cold Pack/Ice Massage,Electric Stimulation,Hot Packs, Infrared Therapy,Traction- Mechanical,Ultrasound Next Visit Focus/Plan Next Note Type Treatment Note Next Visit Plan cont core and hip strength exercises; work on hip and innominate mobility
--- NOTE | 2024-02-12 12:08 | PT.OTN ---
Current Diagnoses Radiculopathy, lumbar region (02/12/24) Physical Therapy Treatment Note PT-OP-A Visit Information Start: 12/27/23 13:21 Freq: Status: Active Protocol: Document 02/12/24 10:30 AB (Rec: 02/12/24 12:08 AB [id number]) Out-Patient Physical Therapy Visit Information Visit Information Visit Type Treatment Note Visit Note 01/01 Access Code: [email or web address] Patient late Visit Start Time 11:17 Visit Stop Time 12:01 Visit Number 9 Number of CLINICAL RESEARCHER Visits 3 PT-OP-B Current Condition Start: 12/27/23 13:21 Freq: Status: Active Protocol: Document 12/31/23 13:01 [facility] (Rec: 12/31/23 13:50 [facility] [id number]) Current Condition History of Current Condition Onset Date worsening in September Current Complaints LBP, B knee pain, R thigh pain History of Current Condition Pt reports back pain starting 10/07/23. 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 he didn't feel it until the following sunday then saw the doctor on sunday. They gave him 2 muscle relaxors and his pain was pretty severe and BP 180/80 ( it had never been that high). He did labwork d/t this and gve him mm relaxors and told him to take tyllenol after that. Pt as told he couldn't get pain meds until starting PT. THat first week, he was in a ton of pain, but once the meds kicked in and the pain subsided some. Pain is mostly at R SI and what scared him the most was pt was getting a dull pain in R quad. He has had neuropathy in the past and had gabapentin fo rthat and had hx of not being able to get out of bed. THe thigh hasn ' been as bad. His knees are now getting sharp pain though and it starts when he sleeps. He sleeps w/pillow btwn legs and feels like poor circulation or first thing before cramp in knees. When he is at his worst, he walks with a cane. hx of 2013 L ankle achilles repair and built up the arch and was supposed to have surgery on R to build up arch but insurance wouldn't cover. 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 He has done PT here in the past (for LB and Knees)and it helped him move better and was DC when he was doing well. He got a membership at [employer] and used treadmill and slowly starting to use the strength machines. He hasn't been able to go back since his back pain inc. 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 He is waiting to resume working until finishes PT. He is in a return to work program w/SS. B knee pain at night has been about 6 months. 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 Treatment Goals Patient/Caregiver Goals Get more mobile ,help him know what to do vs not to do, determine if he needs further assessment from doctors, get strengthening exercises that are safe PT-OP-C Subjective Start: 12/27/23 13:21 Freq: Status: Active Protocol: Document 02/12/24 10:30 AB (Rec: 02/12/24 12:08 AB [id number]) OP-PT Subjective Patient Comments Patient Comments Patient comments left knee gave out when walking between practice,( reports gave out more backwards and hand increased pain post with ambulation ) wrapped it with an monse wrap and made it through practice. Patient reports the knee is much better today. Patient reports having no pain with walking today. Patient reports having a dull right sided back pain 2 /10 today. Patient reports having dull bilateral knee pain Sunday at home. Patient reports performing the HEP at least once a day, twice a day if football practice is included. PT-OP-D Balance Start: 12/27/23 13:21 Freq: Status: Active Protocol: Document 12/31/23 13:01 [facility] (Rec: 12/31/23 13:50 [facility] [id number]) Balance Tests Single Limb Standing Single Limb- Right 20 sec w/inc deviation Single Limb- Left 20 sec PT-OP-F Manual Assessment Start: 12/27/23 13:21 Freq: Status: Active Protocol: Document 12/31/23 13:01 [facility] (Rec: 12/31/23 13:50 [facility] [id number]) Manual Assessments Joint Mobility Assessment Joint Mobility Assessment L iliac crest is higher PT-OP-G Mobility & Gait Start: 12/27/23 13:21 Freq: Status: Active Protocol: Document 12/31/23 13:01 [facility] (Rec: 12/31/23 13:50 [facility] [id number]) OP Gait Assessment Comments Gait Comments dec stance time RLE, lat lean to R w/RLE stance PT-OP-J Posture/Palpation/Skin Start: 12/27/23 13:21 Freq: Status: Active Protocol: Document 12/31/23 13:01 [facility] (Rec: 12/31/23 13:50 [facility] [id number]) Posture Evaluation [facility] Postural Classification System Vertical Compression Test 2 Elbow Flexion Test 1 Lumbar Protective Mechanism Left AP 0 Lumbar Protective Mechanism Right AP 0 Lumbar Protective Mechanism Left PA 3 Comments Posture Comments L shoulder higher; L pelvic shear, R SB pt rocks side to side to dec pain PT-OP-K Range of Motion Start: 12/27/23 13:21 Freq: Status: Active Protocol: Document 12/31/23 13:01 [facility] (Rec: 12/31/23 13:50 [facility] [id number]) Lumbar Spine Range of Motion Lumbar Spine Active Percentage Flexion 10 Extension 50 Rotation Left 40 Rotation Right 60 Lateral Flexion Left 80 Lateral Flexion Right 50 Comments pain R SB; discomfort w/ext; bend over w/pelvis blocked about mid thigh; mid shins w/o pelvis blocked PT-OP-L Special Tests Start: 12/27/23 13:21 Freq: Status: Active Protocol: Document 12/31/23 13:01 [facility] (Rec: 12/31/23 13:50 [facility] [id number]) Special Tests Lumbar Spine Special Tests ext sit Test Results positive R w/inc tension Slump Test Results positive B w/pain in back-RLE dec range PT-OP-Q Treatments Start: 12/27/23 13:21 Freq: Status: Active Protocol: Document 02/12/24 10:30 AB (Rec: 02/12/24 12:08 AB [id number]) Therapeutic Exercises Supine Exercises Chacho stretch edge of bed Side bilateral Reps/Minutes one minute X1 each LE Comments with AROM knee flexon figure 4 stretch Supine Exercise Name figure 4 and piriformis HEP Side bilateral Reps/Minutes 60 sec each ex each LE BKFO Supine Exercise Name HEP Side bilateral Reps/Minutes X10 each LE Comments verbal cues to brace as LE moves away from core Standing Exercises hip ext with abd bracing Standing Exercise Name leaning on 2 pillows over mat Side bilateral Reps/Minutes X10 each LE Comments verbal cues to brace as LE is lifted Manual Therapy Treatment Soft Tissue Mobilization gluteal, piriformis area Body Location bilateral Mobilization Type Cross-Friction,Rolling Intensity/Depth Moderate Body Position Sidelying Joint Mobilizations right hip Direction inf Grade III Body Position Hooklying Reps/Duration X10 X 3 Manual Techniques contract relax Type hip flex X 3 each LE IR and ER X 1 each LE Body Position Hooklying PT-OP-T Assessment and Plan Start: 12/27/23 13:21 Freq: Status: Active Protocol: Document 02/12/24 10:30 AB (Rec: 02/12/24 12:08 AB [id number]) Physical Therapy Assessment Goals lifting Short Term Goal (STG) Pt will have fwd flex w/pelvis blocked to at least mid patella and have equal SB ea direction w/o pain STG Duration 02/03 Mcfp Goal (LTG) Pt will be able to demonstrate good lifting mechanics and turning mechanics w/o cues LTG Duration 03/15 strength Short Term Goal (STG) Pt will be indep w/HEP STG Duration 02/06 Ditch Repairer Goal (LTG) pt will score at least 3/5 on LPM in all planes and EFT along w/at least 4+/5 on all BLE MMT to show improved stability to allow greater ease in day LTG Duration 03/15 PARISA Impairment 15/50 Short Term Goal (STG) Pt will improve PARISA score to no greater than 10/50 to show improved functional ability. STG Duration 02/03 Ditch Repairer Goal (LTG) Pt will improve PARISA score to no greater than 5/50 to show improved functional ability. LTG Duration 03/24 Six Impairment sleep Impairment . Short Term Goal (STG) Pt will be able to prop himself indep at home for improved alignment during sleep STG Duration 01/23 Mcfp Goal (LTG) Pt will be able to sleep through the night and be able to wake w/o increased pain in back, leg or knees LTG Duration 03/14 Assessment Summary Assessment Patient reports right sided back pain 07/04 end of session. Added piriformis stretches, bent knee fall out and hip ext with abd bracing to HEP this session. Physical Therapy Plan Frequency and Duration Frequency of Treatment 2x/Week Duration of treatment (weeks) 12 Plan of Care Start Date 12/31/23 Plan of Care End Date 03/24/24 Next Visit Focus/Plan Next Note Type Treatment Note Next Visit Plan cont core and hip strength exercises; work on hip and innominate mobility Assess bart and review additions to HEP
--- NOTE | 2024-02-12 12:09 | PT.OTN ---
Current Diagnoses Radiculopathy, lumbar region (02/12/24) Physical Therapy Treatment Note PT-OP-A Visit Information Start: 12/27/23 13:21 Freq: Status: Active Protocol: Document 02/12/24 10:30 AB (Rec: 02/12/24 12:08 AB [id number]) Out-Patient Physical Therapy Visit Information Visit Information Visit Type Treatment Note Visit Note 01/01 Access Code: [email or web address] Patient late Visit Start Time 11:17 Visit Stop Time 12:01 Visit Number 9 Number of OUTDOOR EMERGENCY CARE TECHNICIAN Visits 3 PT-OP-B Current Condition Start: 12/27/23 13:21 Freq: Status: Active Protocol: Document 12/31/23 13:01 [facility] (Rec: 12/31/23 13:50 [facility] [id number]) Current Condition History of Current Condition Onset Date worsening in September Current Complaints LBP, B knee pain, R thigh pain History of Current Condition Pt reports back pain starting 10/07/23. 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 he didn't feel it until the following sunday then saw the doctor on sunday. They gave him 2 muscle relaxors and his pain was pretty severe and BP 180/80 ( it had never been that high). He did labwork d/t this and gve him mm relaxors and told him to take tyllenol after that. Pt as told he couldn't get pain meds until starting PT. THat first week, he was in a ton of pain, but once the meds kicked in and the pain subsided some. Pain is mostly at R SI and what scared him the most was pt was getting a dull pain in R quad. He has had neuropathy in the past and had gabapentin fo rthat and had hx of not being able to get out of bed. THe thigh hasn ' been as bad. His knees are now getting sharp pain though and it starts when he sleeps. He sleeps w/pillow btwn legs and feels like poor circulation or first thing before cramp in knees. When he is at his worst, he walks with a cane. hx of 2013 L ankle achilles repair and built up the arch and was supposed to have surgery on R to build up arch but insurance wouldn't cover. 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 He has done PT here in the past (for LB and Knees)and it helped him move better and was DC when he was doing well. He got a membership at [employer] and used treadmill and slowly starting to use the strength machines. He hasn't been able to go back since his back pain inc. 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 He is waiting to resume working until finishes PT. He is in a return to work program w/SS. B knee pain at night has been about 6 months. 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 Treatment Goals Patient/Caregiver Goals Get more mobile ,help him know what to do vs not to do, determine if he needs further assessment from doctors, get strengthening exercises that are safe PT-OP-C Subjective Start: 12/27/23 13:21 Freq: Status: Active Protocol: Document 02/12/24 10:30 AB (Rec: 02/12/24 12:08 AB [id number]) OP-PT Subjective Patient Comments Patient Comments Patient comments left knee gave out when walking between practice,( reports gave out more backwards and hand increased pain post with ambulation ) wrapped it with an monse wrap and made it through practice. Patient reports the knee is much better today. Patient reports having no pain with walking today. Patient reports having a dull right sided back pain 2 /10 today. Patient reports having dull bilateral knee pain Sunday at home. Patient reports performing the HEP at least once a day, twice a day if football practice is included. PT-OP-D Balance Start: 12/27/23 13:21 Freq: Status: Active Protocol: Document 12/31/23 13:01 [facility] (Rec: 12/31/23 13:50 [facility] [id number]) Balance Tests Single Limb Standing Single Limb- Right 20 sec w/inc deviation Single Limb- Left 20 sec PT-OP-F Manual Assessment Start: 12/27/23 13:21 Freq: Status: Active Protocol: Document 12/31/23 13:01 [facility] (Rec: 12/31/23 13:50 [facility] [id number]) Manual Assessments Joint Mobility Assessment Joint Mobility Assessment L iliac crest is higher PT-OP-G Mobility & Gait Start: 12/27/23 13:21 Freq: Status: Active Protocol: Document 12/31/23 13:01 [facility] (Rec: 12/31/23 13:50 [facility] [id number]) OP Gait Assessment Comments Gait Comments dec stance time RLE, lat lean to R w/RLE stance PT-OP-J Posture/Palpation/Skin Start: 12/27/23 13:21 Freq: Status: Active Protocol: Document 12/31/23 13:01 [facility] (Rec: 12/31/23 13:50 [facility] [id number]) Posture Evaluation [facility] Postural Classification System Vertical Compression Test 2 Elbow Flexion Test 1 Lumbar Protective Mechanism Left AP 0 Lumbar Protective Mechanism Right AP 0 Lumbar Protective Mechanism Left PA 3 Comments Posture Comments L shoulder higher; L pelvic shear, R SB pt rocks side to side to dec pain PT-OP-K Range of Motion Start: 12/27/23 13:21 Freq: Status: Active Protocol: Document 12/31/23 13:01 [facility] (Rec: 12/31/23 13:50 [facility] [id number]) Lumbar Spine Range of Motion Lumbar Spine Active Percentage Flexion 10 Extension 50 Rotation Left 40 Rotation Right 60 Lateral Flexion Left 80 Lateral Flexion Right 50 Comments pain R SB; discomfort w/ext; bend over w/pelvis blocked about mid thigh; mid shins w/o pelvis blocked PT-OP-L Special Tests Start: 12/27/23 13:21 Freq: Status: Active Protocol: Document 12/31/23 13:01 [facility] (Rec: 12/31/23 13:50 [facility] [id number]) Special Tests Lumbar Spine Special Tests ext sit Test Results positive R w/inc tension Slump Test Results positive B w/pain in back-RLE dec range PT-OP-Q Treatments Start: 12/27/23 13:21 Freq: Status: Active Protocol: Document 02/12/24 10:30 AB (Rec: 02/12/24 12:08 AB [id number]) Therapeutic Exercises Supine Exercises Chacho stretch edge of bed Side bilateral Reps/Minutes one minute X1 each LE Comments with AROM knee flexon figure 4 stretch Supine Exercise Name figure 4 and piriformis HEP Side bilateral Reps/Minutes 60 sec each ex each LE BKFO Supine Exercise Name HEP Side bilateral Reps/Minutes X10 each LE Comments verbal cues to brace as LE moves away from core Standing Exercises hip ext with abd bracing Standing Exercise Name leaning on 2 pillows over mat Side bilateral Reps/Minutes X10 each LE Comments verbal cues to brace as LE is lifted Manual Therapy Treatment Soft Tissue Mobilization gluteal, piriformis area Body Location bilateral Mobilization Type Cross-Friction,Rolling Intensity/Depth Moderate Body Position Sidelying Joint Mobilizations right hip Direction inf Grade III Body Position Hooklying Reps/Duration X10 X 3 Manual Techniques contract relax Type hip flex X 3 each LE IR and ER X 1 each LE Body Position Hooklying PT-OP-T Assessment and Plan Start: 12/27/23 13:21 Freq: Status: Active Protocol: Document 02/12/24 10:30 AB (Rec: 02/12/24 12:08 AB [id number]) Physical Therapy Assessment Goals lifting Short Term Goal (STG) Pt will have fwd flex w/pelvis blocked to at least mid patella and have equal SB ea direction w/o pain STG Duration 02/03 Nursing Home Goal (LTG) Pt will be able to demonstrate good lifting mechanics and turning mechanics w/o cues LTG Duration 03/15 strength Short Term Goal (STG) Pt will be indep w/HEP STG Duration 02/06 Measurement Supervisor Goal (LTG) pt will score at least 3/5 on LPM in all planes and EFT along w/at least 4+/5 on all BLE MMT to show improved stability to allow greater ease in day LTG Duration 03/15 PARISA Impairment 15/50 Short Term Goal (STG) Pt will improve PARISA score to no greater than 10/50 to show improved functional ability. STG Duration 02/03 Measurement Supervisor Goal (LTG) Pt will improve PARISA score to no greater than 5/50 to show improved functional ability. LTG Duration 03/24 Six Impairment sleep Impairment . Short Term Goal (STG) Pt will be able to prop himself indep at home for improved alignment during sleep STG Duration 01/23 Nursing Home Goal (LTG) Pt will be able to sleep through the night and be able to wake w/o increased pain in back, leg or knees LTG Duration 03/14 Assessment Summary Assessment Patient reports right sided back pain 07/04 end of session. Added piriformis stretches, bent knee fall out and hip ext with abd bracing to HEP this session. Physical Therapy Plan Frequency and Duration Frequency of Treatment 2x/Week Duration of treatment (weeks) 12 Plan of Care Start Date 12/31/23 Plan of Care End Date 03/24/24 Next Visit Focus/Plan Next Note Type Treatment Note Next Visit Plan cont core and hip strength exercises; work on hip and innominate mobility Assess bart and review additions to HEP
--- NOTE | 2024-02-19 11:20 | PT.OTN ---
Current Diagnoses Radiculopathy, lumbar region (02/19/24) Physical Therapy Treatment Note PT-OP-A Visit Information Start: 12/27/23 13:21 Freq: Status: Active Protocol: Document 02/19/24 10:36 [facility] (Rec: 02/19/24 11:19 [facility] [id number]) Out-Patient Physical Therapy Visit Information Visit Information Visit Type Progress Note Visit Note 07/04 Visit Start Time 10:37 Visit Stop Time 11:15 Visit Number 10 Number of MACHINIST MECHANIC Visits 0 PT-OP-B Current Condition Start: 12/27/23 13:21 Freq: Status: Active Protocol: Document 12/31/23 13:01 [facility] (Rec: 12/31/23 13:50 [facility] [id number]) Current Condition History of Current Condition Onset Date worsening in September Current Complaints LBP, B knee pain, R thigh pain History of Current Condition Pt reports back pain starting 10/07/23. 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 he didn't feel it until the following sunday then saw the doctor on sunday. They gave him 2 muscle relaxors and his pain was pretty severe and BP 180/80 ( it had never been that high). He did labwork d/t this and gve him mm relaxors and told him to take tyllenol after that. Pt as told he couldn't get pain meds until starting PT. THat first week, he was in a ton of pain, but once the meds kicked in and the pain subsided some. Pain is mostly at R SI and what scared him the most was pt was getting a dull pain in R quad. He has had neuropathy in the past and had gabapentin fo rthat and had hx of not being able to get out of bed. THe thigh hasn ' been as bad. His knees are now getting sharp pain though and it starts when he sleeps. He sleeps w/pillow btwn legs and feels like poor circulation or first thing before cramp in knees. When he is at his worst, he walks with a cane. hx of 2013 L ankle achilles repair and built up the arch and was supposed to have surgery on R to build up arch but insurance wouldn't cover. 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 He has done PT here in the past (for LB and Knees)and it helped him move better and was DC when he was doing well. He got a membership at [employer] and used treadmill and slowly starting to use the strength machines. He hasn't been able to go back since his back pain inc. 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 He is waiting to resume working until finishes PT. He is in a return to work program w/SS. B knee pain at night has been about 6 months. 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 Treatment Goals Patient/Caregiver Goals Get more mobile ,help him know what to do vs not to do, determine if he needs further assessment from doctors, get strengthening exercises that are safe PT-OP-C Subjective Start: 12/27/23 13:21 Freq: Status: Active Protocol: Document 02/19/24 10:36 [facility] (Rec: 02/19/24 11:19 [facility] [id number]) OP-PT Subjective Patient Comments Patient Comments pt reports pain is about 1/10. Feels like exercsies help knees. hips feels better. R SI has some pain. PT-OP-D Balance Start: 12/27/23 13:21 Freq: Status: Active Protocol: Document 12/31/23 13:01 [facility] (Rec: 12/31/23 13:50 [facility] [id number]) Balance Tests Single Limb Standing Single Limb- Right 20 sec w/inc deviation Single Limb- Left 20 sec PT-OP-F Manual Assessment Start: 12/27/23 13:21 Freq: Status: Active Protocol: Document 12/31/23 13:01 [facility] (Rec: 12/31/23 13:50 [facility] [id number]) Manual Assessments Joint Mobility Assessment Joint Mobility Assessment L iliac crest is higher PT-OP-G Mobility & Gait Start: 12/27/23 13:21 Freq: Status: Active Protocol: Document 12/31/23 13:01 [facility] (Rec: 12/31/23 13:50 [facility] [id number]) OP Gait Assessment Comments Gait Comments dec stance time RLE, lat lean to R w/RLE stance PT-OP-J Posture/Palpation/Skin Start: 12/27/23 13:21 Freq: Status: Active Protocol: Document 02/19/24 10:36 [facility] (Rec: 02/19/24 11:19 [facility] [id number]) Posture Evaluation [facility] Postural Classification System Lumbar Protective Mechanism Left AP 2 Lumbar Protective Mechanism Right AP 1 Lumbar Protective Mechanism Left PA 3 Lumbar Protective Mechanism Right PA 4 PT-OP-K Range of Motion Start: 12/27/23 13:21 Freq: Status: Active Protocol: Document 12/31/23 13:01 [facility] (Rec: 12/31/23 13:50 [facility] [id number]) Lumbar Spine Range of Motion Lumbar Spine Active Percentage Flexion 10 Extension 50 Rotation Left 40 Rotation Right 60 Lateral Flexion Left 80 Lateral Flexion Right 50 Comments pain R SB; discomfort w/ext; bend over w/pelvis blocked about mid thigh; mid shins w/o pelvis blocked PT-OP-L Special Tests Start: 12/27/23 13:21 Freq: Status: Active Protocol: Document 12/31/23 13:01 [facility] (Rec: 12/31/23 13:50 [facility] [id number]) Special Tests Lumbar Spine Special Tests ext sit Test Results positive R w/inc tension Slump Test Results positive B w/pain in back-RLE dec range PT-OP-M Strength Start: 12/27/23 13:21 Freq: Status: Active Protocol: Document 02/19/24 10:36 [facility] (Rec: 02/19/24 11:19 [facility] [id number]) Hip Strength Hip Manual Muscle Testing Right Flexion (L2) 4 Good Extension (S1) 4+ Good+ Abduction 3+ Fair+ External Rotation 5 Normal Internal Rotation 4- Good- Comments pain IR & ext at SI Left Flexion (L2) 4+ Good+ Extension (S1) 5 Normal Abduction 4+ Good+ External Rotation 5 Normal Internal Rotation 5 Normal Knee Strength Knee Manual Muscle Testing R Flexion (S2) 4+ Good+ Extension (L3) 5 Normal L Flexion (S2) 4+ Good+ Extension (L3) 5 Normal Ankle/Foot Strength Ankle and Foot Manual Muscle Testing R Dorsiflexion (L4) 5 Normal Plantarflexion (S1) 4+ Good+ L Dorsiflexion (L4) 5 Normal Plantarflexion (S1) 5 Normal Comments seated testing B PT-OP-Q Treatments Start: 12/27/23 13:21 Freq: Status: Active Protocol: Document 02/19/24 10:36 [facility] (Rec: 02/19/24 11:19 [facility] [id number]) Therapeutic Exercises Supine Exercises LTR Side bilateral Reps/Minutes 12 bridge Side bilateral Reps/Minutes 10 Chacho stretch edge of bed Supine Exercise Name opposite knee to chest Side bilateral Reps/Minutes one minute X1 each LE Standing Exercises sidestep Side bilateral Equipment Used L2 band at knees Reps/Minutes 15ft x2 ea Comments in mini squat squat Standing Exercise Name with band Side bilateral Resistance level2 band Reps/Minutes X15 Other Exercises isometrics Other Exercise Name B LE MMT &LPM Side bilateral Manual Therapy Treatment Consent Patient gave verbal consent for manual Yes treatment Soft Tissue Mobilization LB Body Location along R SI & sacrum Mobilization Type Sustained Pressure Intensity/Depth Moderate Body Position Sidelying Joint Mobilizations innominate Joint R IR, add and ext FM s/l PT-OP-T Assessment and Plan Start: 12/27/23 13:21 Freq: Status: Active Protocol: Document 02/19/24 10:36 [facility] (Rec: 02/19/24 11:19 [facility] [id number]) Physical Therapy Assessment Goals lifting Short Term Goal (STG) Pt will have fwd flex w/pelvis blocked to at least mid patella and have equal SB ea direction w/o pain 02/18-improved to sup patella and equal SB w/some discomfort L SB STG Duration 02/03 Sour Bleaching Pleater Goal (LTG) Pt will be able to demonstrate good lifting mechanics and turning mechanics w/o cues LTG Duration 03/15 strength Short Term Goal (STG) Pt will be indep w/HEP STG Duration achieved advancing as able Sour Bleaching Pleater Goal (LTG) pt will score at least 3/5 on LPM in all planes and EFT along w/at least 4+/5 on all BLE MMT to show improved stability to allow greater ease in day 02/18-improved LTG Duration 03/15 PARISA Impairment Short Term Goal (STG) Pt will improve PARISA score to no greater than 10/50 to show improved functional ability. 02/18- STG Duration 02/03 Care Home Goal (LTG) Pt will improve PARISA score to no greater than 5/50 to show improved functional ability. LTG Duration 03/24 Six Impairment sleep Impairment . Short Term Goal (STG) Pt will be able to prop himself indep at home for improved alignment during sleep STG Duration achieved 02/18 Care Home Goal (LTG) Pt will be able to sleep through the night and be able to wake w/o increased pain in back, leg or knees LTG Duration achieved 02/18 Assessment Summary Assessment Pt making good progress w/pain and functional ability along w/strength. Cont to have core weakness and R abd and IR weakness. cont PT for knee pain and back pain w/focus on SI mobility R> Physical Therapy Plan Frequency and Duration Frequency of Treatment 2x/Week Duration of treatment (weeks) 12 Plan of Care Start Date 12/31/23 Plan of Care End Date 03/24/24 Therapeutic Interventions Therapeutic Interventions Balance Training,Gait Training ,Home Exercise Program,Joint Mobilizations,Manual Therapy, Neuromuscular Re-education, Orthotic/Prosthetic Management ,Patient/Caregiver Education, Self-Care/Home Management,Soft Tissue Mobilization,Taping, Therapeutic Activities, Therapeutic Exercises Modalities Cold Pack/Ice Massage,Electric Stimulation,Hot Packs, Infrared Therapy,Traction- Mechanical,Ultrasound Next Visit Focus/Plan Next Note Type Treatment Note Next Visit Plan cont core and hip strength exercises; work on hip and innominate mobility
--- NOTE | 2024-02-22 15:13 | PT.OTN ---
Current Diagnoses Radiculopathy, lumbar region (02/22/24) Physical Therapy Treatment Note PT-OP-A Visit Information Start: 12/27/23 13:21 Freq: Status: Active Protocol: Document 02/22/24 14:35 SP (Rec: 02/22/24 15:32 SP [id number]) Out-Patient Physical Therapy Visit Information Visit Information Visit Type Treatment Note Visit Note 08/04 after PN Visit Start Time 14:35 Visit Stop Time 15:13 Visit Number 11 Number of RAW PRODUCTS DIRECTOR Visits 1 PT-OP-B Current Condition Start: 12/27/23 13:21 Freq: Status: Active Protocol: Document 12/31/23 13:01 LR (Rec: 12/31/23 13:50 [facility] [id number]) Current Condition History of Current Condition Onset Date worsening in September Current Complaints LBP, B knee pain, R thigh pain History of Current Condition Pt reports back pain starting 10/07/23. 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 he didn't feel it until the following sunday then saw the doctor on sunday. They gave him 2 muscle relaxors and his pain was pretty severe and BP 180/80 ( it had never been that high). He did labwork d/t this and gve him mm relaxors and told him to take tyllenol after that. Pt as told he couldn't get pain meds until starting PT. THat first week, he was in a ton of pain, but once the meds kicked in and the pain subsided some. Pain is mostly at R SI and what scared him the most was pt was getting a dull pain in R quad. He has had neuropathy in the past and had gabapentin fo rthat and had hx of not being able to get out of bed. THe thigh hasn ' been as bad. His knees are now getting sharp pain though and it starts when he sleeps. He sleeps w/pillow btwn legs and feels like poor circulation or first thing before cramp in knees. When he is at his worst, he walks with a cane. hx of 2013 L ankle achilles repair and built up the arch and was supposed to have surgery on R to build up arch but insurance wouldn't cover. 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 He has done PT here in the past (for LB and Knees)and it helped him move better and was DC when he was doing well. He got a membership at [employer] and used treadmill and slowly starting to use the strength machines. He hasn't been able to go back since his back pain inc. 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 He is waiting to resume working until finishes PT. He is in a return to work program w/SS. B knee pain at night has been about 6 months. 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 Treatment Goals Patient/Caregiver Goals Get more mobile ,help him know what to do vs not to do, determine if he needs further assessment from doctors, get strengthening exercises that are safe PT-OP-C Subjective Start: 12/27/23 13:21 Freq: Status: Active Protocol: Document 02/22/24 14:35 SP (Rec: 02/22/24 15:32 SP [id number]) OP-PT Subjective Patient Comments Patient Comments Pt reports can stand for about 2 hrs more tolerable. IF tries 2.5 starts to increase pain. Compliant with HEP. R side might have cortizone vs continue PT, physician will get back to PT once receives PN which route will go. He stated is not proper getting in/out car and log roll technique better no pain. PT-OP-D Balance Start: 12/27/23 13:21 Freq: Status: Active Protocol: Document 12/31/23 13:01 [facility] (Rec: 12/31/23 13:50 [facility] [id number]) Balance Tests Single Limb Standing Single Limb- Right 20 sec w/inc deviation Single Limb- Left 20 sec PT-OP-F Manual Assessment Start: 12/27/23 13:21 Freq: Status: Active Protocol: Document 12/31/23 13:01 [facility] (Rec: 12/31/23 13:50 [facility] [id number]) Manual Assessments Joint Mobility Assessment Joint Mobility Assessment L iliac crest is higher PT-OP-G Mobility & Gait Start: 12/27/23 13:21 Freq: Status: Active Protocol: Document 12/31/23 13:01 [facility] (Rec: 12/31/23 13:50 [facility] [id number]) OP Gait Assessment Comments Gait Comments dec stance time RLE, lat lean to R w/RLE stance PT-OP-J Posture/Palpation/Skin Start: 12/27/23 13:21 Freq: Status: Active Protocol: Document 02/19/24 10:36 [facility] (Rec: 02/19/24 11:19 [facility] [id number]) Posture Evaluation [facility] Postural Classification System Lumbar Protective Mechanism Left AP 2 Lumbar Protective Mechanism Right AP 1 Lumbar Protective Mechanism Left PA 3 Lumbar Protective Mechanism Right PA 4 PT-OP-K Range of Motion Start: 12/27/23 13:21 Freq: Status: Active Protocol: Document 12/31/23 13:01 [facility] (Rec: 12/31/23 13:50 [facility] [id number]) Lumbar Spine Range of Motion Lumbar Spine Active Percentage Flexion 10 Extension 50 Rotation Left 40 Rotation Right 60 Lateral Flexion Left 80 Lateral Flexion Right 50 Comments pain R SB; discomfort w/ext; bend over w/pelvis blocked about mid thigh; mid shins w/o pelvis blocked PT-OP-L Special Tests Start: 12/27/23 13:21 Freq: Status: Active Protocol: Document 12/31/23 13:01 [facility] (Rec: 12/31/23 13:50 [facility] [id number]) Special Tests Lumbar Spine Special Tests ext sit Test Results positive R w/inc tension Slump Test Results positive B w/pain in back-RLE dec range PT-OP-M Strength Start: 12/27/23 13:21 Freq: Status: Active Protocol: Document 02/19/24 10:36 [facility] (Rec: 02/19/24 11:19 [facility] [id number]) Hip Strength Hip Manual Muscle Testing Right Flexion (L2) 4 Good Extension (S1) 4+ Good+ Abduction 3+ Fair+ External Rotation 5 Normal Internal Rotation 4- Good- Comments pain IR & ext at SI Left Flexion (L2) 4+ Good+ Extension (S1) 5 Normal Abduction 4+ Good+ External Rotation 5 Normal Internal Rotation 5 Normal Knee Strength Knee Manual Muscle Testing R Flexion (S2) 4+ Good+ Extension (L3) 5 Normal L Flexion (S2) 4+ Good+ Extension (L3) 5 Normal Ankle/Foot Strength Ankle and Foot Manual Muscle Testing R Dorsiflexion (L4) 5 Normal Plantarflexion (S1) 4+ Good+ L Dorsiflexion (L4) 5 Normal Plantarflexion (S1) 5 Normal Comments seated testing B PT-OP-Q Treatments Start: 12/27/23 13:21 Freq: Status: Active Protocol: Document 02/22/24 14:35 SP (Rec: 02/22/24 15:32 SP [id number]) Therapeutic Exercises Supine Exercises bridge Side bilateral Resistance AROM Reps/Minutes 10, 5 SH Comments cued breath figure 4 stretch Supine Exercise Name figure 4 and piriformis HEP Side bilateral Reps/Minutes 60 sec each ex each LE Stretching Supine Exercise Name KTC Reps/Minutes 15 SH after bridges Sidelying Exercises reverse clamshell Sidelying Exercise Name added toHEP Side right Equipment Used pillow between knees Reps/Minutes 3-5 SH x5-10 Comments good form, tiring (assist strength for improve MMT) Sitting Exercises tristanian ball exercises Sitting Exercise Name 1. pelvic f/b/lateral 2. marching 3. 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 He wondered if get on ground with boys doing stretching, hasn't done in while without UE support. RAW PRODUCTS DIRECTOR instructed do home with HEP then use furniture for support then use SPC if can do confidently home then can do at boys practice and give time stretch out during theirs as well and feel better make through practice. PT-OP-T Assessment and Plan Start: 12/27/23 13:21 Freq: Status: Active Protocol: Document 02/22/24 14:35 SP (Rec: 02/22/24 15:32 SP [id number]) Physical Therapy Assessment Goals lifting Short Term Goal (STG) Pt will have fwd flex w/pelvis blocked to at least mid patella and have equal SB ea direction w/o pain 02/18-improved to sup patella and equal SB w/some discomfort L SB STG Duration 02/03 Long-Term Goal (LTG) Pt will be able to demonstrate good lifting mechanics and turning mechanics w/o cues LTG Duration 03/15 strength Short Term Goal (STG) Pt will be indep w/HEP STG Duration achieved advancing as able Telecommunications Technician Goal (LTG) pt will score at least 3/5 on LPM in all planes and EFT along w/at least 4+/5 on all BLE MMT to show improved stability to allow greater ease in day 02/18-improved LTG Duration 03/15 PARISA Impairment 1550 Short Term Goal (STG) Pt will improve PARISA score to no greater than 10/50 to show improved functional ability. 02/18- STG Duration 02/03 Long-Term Goal (LTG) Pt will improve PARISA score to no greater than 5/50 to show improved functional ability. LTG Duration 03/24 Six Impairment sleep Impairment . Short Term Goal (STG) Pt will be able to prop himself indep at home for improved alignment during sleep STG Duration achieved 02/18 Long-Term Goal (LTG) Pt will be able to sleep through the night and be able to wake w/o increased pain in back, leg or knees LTG Duration achieved 02/18 Assessment Summary Assessment Pt good report muscle tiring, pnfree with all ther ex. PRovided HO ex today for jenny troncoso Thomas stretch didnt have, teresa pnfree. Pt wants to wait to add more appts until f/u with physician. Physical Therapy Plan Frequency and Duration Frequency of Treatment 2x/Week Duration of treatment (weeks) 12 Plan of Care Start Date 12/31/23 Plan of Care End Date 03/24/24 Therapeutic Interventions Therapeutic Interventions Balance Training,Gait Training ,Home Exercise Program,Joint Mobilizations,Manual Therapy, Neuromuscular Re-education, Orthotic/Prosthetic Management ,Patient/Caregiver Education, Self-Care/Home Management,Soft Tissue Mobilization,Taping, Therapeutic Activities, Therapeutic Exercises Modalities Cold Pack/Ice Massage,Electric Stimulation,Hot Packs, Infrared Therapy,Traction- Mechanical,Ultrasound Next Visit Focus/Plan Next Note Type Treatment Note Next Visit Plan REviewed HEP, Gave HO fo added today for self progression. Pt call back for add more appts or DC post injection. POC: cont core and hip strength exercises; work on hip and innominate mobility
--- NOTE | 2024-03-27 11:46 | PT.OTN ---
Current Diagnoses Radiculopathy, lumbar region (02/22/24) Physical Therapy Treatment Note PT-OP-A Visit Information Start: 12/27/23 13:21 Freq: Status: Active Protocol: Document 03/27/24 11:46 [facility] (Rec: 03/27/24 11:46 [facility] [id number]) Out-Patient Physical Therapy Visit Information Visit Information Visit Type Discharge Summary Visit Note Requests discharge from PT. Doing well after injection. PT-OP-B Current Condition Start: 12/27/23 13:21 Freq: Status: Active Protocol: Document 12/31/23 13:01 [facility] (Rec: 12/31/23 13:50 [facility] [id number]) Current Condition History of Current Condition Onset Date worsening in September Current Complaints LBP, B knee pain, R thigh pain History of Current Condition Pt reports back pain starting 10/07/23. 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 he didn't feel it until the following sunday then saw the doctor on sunday. They gave him 2 muscle relaxors and his pain was pretty severe and BP 180/80 ( it had never been that high). He did labwork d/t this and gve him mm relaxors and told him to take tyllenol after that. Pt as told he couldn't get pain meds until starting PT. THat first week, he was in a ton of pain, but once the meds kicked in and the pain subsided some. Pain is mostly at R SI and what scared him the most was pt was getting a dull pain in R quad. He has had neuropathy in the past and had gabapentin fo rthat and had hx of not being able to get out of bed. THe thigh hasn ' been as bad. His knees are now getting sharp pain though and it starts when he sleeps. He sleeps w/pillow btwn legs and feels like poor circulation or first thing before cramp in knees. When he is at his worst, he walks with a cane. hx of 2013 L ankle achilles repair and built up the arch and was supposed to have surgery on R to build up arch but insurance wouldn't cover. 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 He has done PT here in the past (for LB and Knees)and it helped him move better and was DC when he was doing well. He got a membership at [employer] and used treadmill and slowly starting to use the strength machines. He hasn't been able to go back since his back pain inc. 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 He is waiting to resume working until finishes PT. He is in a return to work program w/SS. B knee pain at night has been about 6 months. 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 Treatment Goals Patient/Caregiver Goals Get more mobile ,help him know what to do vs not to do, determine if he needs further assessment from doctors, get strengthening exercises that are safe PT-OP-C Subjective Start: 12/27/23 13:21 Freq: Status: Active Protocol: Document 02/22/24 14:35 SP (Rec: 02/22/24 15:32 SP [id number]) OP-PT Subjective Patient Comments Patient Comments Pt reports can stand for about 2 hrs more tolerable. IF tries 2.5 starts to increase pain. Compliant with HEP. R side might have cortizone vs continue PT, physician will get back to PT once receives PN which route will go. He stated is not proper getting in/out car and log roll technique better no pain. PT-OP-D Balance Start: 12/27/23 13:21 Freq: Status: Active Protocol: Document 12/31/23 13:01 [facility] (Rec: 12/31/23 13:50 [facility] [id number]) Balance Tests Single Limb Standing Single Limb- Right 20 sec w/inc deviation Single Limb- Left 20 sec PT-OP-F Manual Assessment Start: 12/27/23 13:21 Freq: Status: Active Protocol: Document 12/31/23 13:01 [facility] (Rec: 12/31/23 13:50 [facility] [id number]) Manual Assessments Joint Mobility Assessment Joint Mobility Assessment L iliac crest is higher PT-OP-G Mobility & Gait Start: 12/27/23 13:21 Freq: Status: Active Protocol: Document 12/31/23 13:01 [facility] (Rec: 12/31/23 13:50 [facility] [id number]) OP Gait Assessment Comments Gait Comments dec stance time RLE, lat lean to R w/RLE stance PT-OP-J Posture/Palpation/Skin Start: 12/27/23 13:21 Freq: Status: Active Protocol: Document 02/19/24 10:36 [facility] (Rec: 02/19/24 11:19 [facility] [id number]) Posture Evaluation [facility] Postural Classification System Lumbar Protective Mechanism Left AP 2 Lumbar Protective Mechanism Right AP 1 Lumbar Protective Mechanism Left PA 3 Lumbar Protective Mechanism Right PA 4 PT-OP-K Range of Motion Start: 12/27/23 13:21 Freq: Status: Active Protocol: Document 12/31/23 13:01 [facility] (Rec: 12/31/23 13:50 [facility] [id number]) Lumbar Spine Range of Motion Lumbar Spine Active Percentage Flexion 10 Extension 50 Rotation Left 40 Rotation Right 60 Lateral Flexion Left 80 Lateral Flexion Right 50 Comments pain R SB; discomfort w/ext; bend over w/pelvis blocked about mid thigh; mid shins w/o pelvis blocked PT-OP-L Special Tests Start: 12/27/23 13:21 Freq: Status: Active Protocol: Document 12/31/23 13:01 [facility] (Rec: 12/31/23 13:50 [facility] [id number]) Special Tests Lumbar Spine Special Tests ext sit Test Results positive R w/inc tension Slump Test Results positive B w/pain in back-RLE dec range PT-OP-M Strength Start: 12/27/23 13:21 Freq: Status: Active Protocol: Document 02/19/24 10:36 [facility] (Rec: 02/19/24 11:19 [facility] [id number]) Hip Strength Hip Manual Muscle Testing Right Flexion (L2) 4 Good Extension (S1) 4+ Good+ Abduction 3+ Fair+ External Rotation 5 Normal Internal Rotation 4- Good- Comments pain IR & ext at SI Left Flexion (L2) 4+ Good+ Extension (S1) 5 Normal Abduction 4+ Good+ External Rotation 5 Normal Internal Rotation 5 Normal Knee Strength Knee Manual Muscle Testing R Flexion (S2) 4+ Good+ Extension (L3) 5 Normal L Flexion (S2) 4+ Good+ Extension (L3) 5 Normal Ankle/Foot Strength Ankle and Foot Manual Muscle Testing R Dorsiflexion (L4) 5 Normal Plantarflexion (S1) 4+ Good+ L Dorsiflexion (L4) 5 Normal Plantarflexion (S1) 5 Normal Comments seated testing B PT-OP-Q Treatments Start: 12/27/23 13:21 Freq: Status: Active Protocol: Document 02/22/24 14:35 SP (Rec: 02/22/24 15:32 SP [id number]) Therapeutic Exercises Supine Exercises bridge Side bilateral Resistance AROM Reps/Minutes 10, 5 SH Comments cued breath figure 4 stretch Supine Exercise Name figure 4 and piriformis HEP Side bilateral Reps/Minutes 60 sec each ex each LE Stretching Supine Exercise Name KTC Reps/Minutes 15 SH after bridges Sidelying Exercises reverse clamshell Sidelying Exercise Name added toHEP Side right Equipment Used pillow between knees Reps/Minutes 3-5 SH x5-10 Comments good form, tiring (assist strength for improve MMT) Sitting Exercises ku[place] ball exercises Sitting Exercise Name 1. pelvic f/b/lateral 2. marching 3. 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 He wondered if get on ground with boys doing stretching, hasn't done in while without UE support. MINE ADMINISTRATOR SUPERVISOR instructed do home with HEP then use furniture for support then use SPC if can do confidently home then can do at boys practice and give time stretch out during theirs as well and feel better make through practice. PT-OP-T Assessment and Plan Start: 12/27/23 13:21 Freq: Status: Active Protocol: Document 03/27/24 11:46 [facility] (Rec: 03/27/24 11:46 [facility] [id number]) Physical Therapy Plan Discharge Physical Therapy Discharge Reasons Patient Request
--- NOTE | 2024-04-03 12:29 | PT.OPDS ---
Current Diagnoses Radiculopathy, lumbar region (02/22/24) Visit Care Team Role Provider Type Ana Rosa Matos DO Attending Provider Non-Staff Family Provider Primary Care Provider Referring Provider Specialty: Family Practice [place]: [place], [address] Email: Visit Number Visit Number 11 Discharge Summary PT-OP-B Current Condition Start: 12/27/23 13:21 Freq: Status: Active Protocol: Document 12/31/23 13:01 [facility] (Rec: 12/31/23 13:50 [facility] [id number]) Current Condition History of Current Condition Onset Date worsening in September Current Complaints LBP, B knee pain, R thigh pain History of Current Condition Pt reports back pain starting 10/07/23. 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 he didn't feel it until the following sunday then saw the doctor on sunday. They gave him 2 muscle relaxors and his pain was pretty severe and BP 180/80 ( it had never been that high). He did labwork d/t this and gve him mm relaxors and told him to take tyllenol after that. Pt as told he couldn't get pain meds until starting PT. THat first week, he was in a ton of pain, but once the meds kicked in and the pain subsided some. Pain is mostly at R SI and what scared him the most was pt was getting a dull pain in R quad. He has had neuropathy in the past and had gabapentin fo rthat and had hx of not being able to get out of bed. THe thigh hasn ' been as bad. His knees are now getting sharp pain though and it starts when he sleeps. He sleeps w/pillow btwn legs and feels like poor circulation or first thing before cramp in knees. When he is at his worst, he walks with a cane. hx of 2013 L ankle achilles repair and built up the arch and was supposed to have surgery on R to build up arch but insurance wouldn't cover. 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 He has done PT here in the past (for LB and Knees)and it helped him move better and was DC when he was doing well. He got a membership at [employer] and used treadmill and slowly starting to use the strength machines. He hasn't been able to go back since his back pain inc. 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 He is waiting to resume working until finishes PT. He is in a return to work program w/SS. B knee pain at night has been about 6 months. 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 Treatment Goals Patient/Caregiver Goals Get more mobile ,help him know what to do vs not to do, determine if he needs further assessment from doctors, get strengthening exercises that are safe PT-OP-C Subjective Start: 12/27/23 13:21 Freq: Status: Active Protocol: Document 02/22/24 14:35 [facility] (Rec: 02/22/24 15:32 SP [id number]) OP-PT Subjective Patient Comments Patient Comments Pt reports can stand for about 2 hrs more tolerable. IF tries 2.5 starts to increase pain. Compliant with HEP. R side might have cortizone vs continue PT, physician will get back to PT once receives PN which route will go. He stated is not proper getting in/out car and log roll technique better no pain. PT-OP-D Balance Start: 12/27/23 13:21 Freq: Status: Active Protocol: Document 12/31/23 13:01 [facility] (Rec: 12/31/23 13:50 [facility] [id number]) Balance Tests Single Limb Standing Single Limb- Right 20 sec w/inc deviation Single Limb- Left 20 sec PT-OP-F Manual Assessment Start: 12/27/23 13:21 Freq: Status: Active Protocol: Document 12/31/23 13:01 [facility] (Rec: 12/31/23 13:50 [facility] [id number]) Manual Assessments Joint Mobility Assessment Joint Mobility Assessment L iliac crest is higher PT-OP-G Mobility & Gait Start: 12/27/23 13:21 Freq: Status: Active Protocol: Document 12/31/23 13:01 [facility] (Rec: 12/31/23 13:50 [facility] [id number]) OP Gait Assessment Comments Gait Comments dec stance time RLE, lat lean to R w/RLE stance PT-OP-J Posture/Palpation/Skin Start: 12/27/23 13:21 Freq: Status: Active Protocol: Document 02/19/24 10:36 [facility] (Rec: 02/19/24 11:19 [facility] [id number]) Posture Evaluation [facility] Postural Classification System Lumbar Protective Mechanism Left AP 2 Lumbar Protective Mechanism Right AP 1 Lumbar Protective Mechanism Left PA 3 Lumbar Protective Mechanism Right PA 4 PT-OP-K Range of Motion Start: 12/27/23 13:21 Freq: Status: Active Protocol: Document 12/31/23 13:01 [facility] (Rec: 12/31/23 13:50 [facility] [id number]) Lumbar Spine Range of Motion Lumbar Spine Active Percentage Flexion 10 Extension 50 Rotation Left 40 Rotation Right 60 Lateral Flexion Left 80 Lateral Flexion Right 50 Comments pain R SB; discomfort w/ext; bend over w/pelvis blocked about mid thigh; mid shins w/o pelvis blocked PT-OP-L Special Tests Start: 12/27/23 13:21 Freq: Status: Active Protocol: Document 12/31/23 13:01 [facility] (Rec: 12/31/23 13:50 [facility] [id number]) Special Tests Lumbar Spine Special Tests ext sit Test Results positive R w/inc tension Slump Test Results positive B w/pain in back-RLE dec range PT-OP-M Strength Start: 12/27/23 13:21 Freq: Status: Active Protocol: Document 02/19/24 10:36 [facility] (Rec: 02/19/24 11:19 [facility] [id number]) Hip Strength Hip Manual Muscle Testing Right Flexion (L2) 4 Good Extension (S1) 4+ Good+ Abduction 3+ Fair+ External Rotation 5 Normal Internal Rotation 4- Good- Comments pain IR & ext at SI Left Flexion (L2) 4+ Good+ Extension (S1) 5 Normal Abduction 4+ Good+ External Rotation 5 Normal Internal Rotation 5 Normal Knee Strength Knee Manual Muscle Testing R Flexion (S2) 4+ Good+ Extension (L3) 5 Normal L Flexion (S2) 4+ Good+ Extension (L3) 5 Normal Ankle/Foot Strength Ankle and Foot Manual Muscle Testing R Dorsiflexion (L4) 5 Normal Plantarflexion (S1) 4+ Good+ L Dorsiflexion (L4) 5 Normal Plantarflexion (S1) 5 Normal Comments seated testing B PT-OP-T Assessment and Plan Start: 12/27/23 13:21 Freq: Status: Active Protocol: Document 04/03/24 11:29 [facility] (Rec: 04/03/24 12:29 [facility] [id number]) Physical Therapy Assessment Goals lifting Short Term Goal (STG) Pt will have fwd flex w/pelvis blocked to at least mid patella and have equal SB ea direction w/o pain 02/18-improved to sup patella and equal SB w/some discomfort L SB STG Duration 02/03 Environmental Technology Professor Goal (LTG) Pt will be able to demonstrate good lifting mechanics and turning mechanics w/o cues LTG Duration 03/15 strength Short Term Goal (STG) Pt will be indep w/HEP STG Duration achieved advancing as able Senior Living Goal (LTG) pt will score at least 3/5 on LPM in all planes and EFT along w/at least 4+/5 on all BLE MMT to show improved stability to allow greater ease in day 02/18-improved LTG Duration 03/15 PARISA Impairment 15/50 Short Term Goal (STG) Pt will improve PARISA score to no greater than 10/50 to show improved functional ability. 02/18-16/50 STG Duration 02/03 Senior Living Goal (LTG) Pt will improve PARISA score to no greater than 5/50 to show improved functional ability. LTG Duration 03/24 Six Impairment sleep Impairment . Short Term Goal (STG) Pt will be able to prop himself indep at home for improved alignment during sleep STG Duration achieved 02/18 Senior Living Goal (LTG) Pt will be able to sleep through the night and be able to wake w/o increased pain in back, leg or knees LTG Duration achieved 02/18 Assessment Summary Assessment Pt was making progress w/PT but still did have weakness and some cues needed for lifting mechanics, but he did not schedule further visits after last schedule visit as he wanted to wait to talk to MD. HIs POC is now and pt has not been seen in 1.5 months. DC d/t no longer attending PT Physical Therapy Plan Discharge Physical Therapy Discharge Reasons No Longer Attending PT
== END 2024-04-04 14:59 | disposition home or self-care (01) ==
LOC: PHYS 14:30
PROVIDERS: Family Provider Family Medicine; PCP Family Medicine; Referring Provider Family Medicine; Visit Provider Family Medicine
DX: M54.16 Radiculopathy, lumbar region (principal)
CPT/HCPCS: 97110; 97140; 97162; 97535

== ENCOUNTER → 2024-03-27 14:07 | Outpatient (RCR) | payer MEDICAID, SELFPAY ==
--- NOTE | 2022-05-23 15:42 | PT.OIE ---
Current Diagnoses Other chronic pain (05/23/22) Low back pain, unspecified (05/23/22) Difficulty in walking, not elsewhere classified (05/23/22) Past Medical History (Last Reviewed 08/23/21 @ 04:56 by Guille Rahman DO) Allergies (~2004) Anxiety and depression (~2009) Carpal tunnel syndrome (~1984) Chicken pox (~1977) Chronic back pain (~2009) Diabetes mellitus (~2009) Foot pain (~2009) Headache (~2009) Hearing loss History of urinary incontinence (~2009) Hypertension (~2004) Low testosterone (~2009) Near sighted (~2004) Numerous skin moles (~1964) PTSD (post-traumatic stress disorder) (~2011) Restless leg syndrome (~2004) Sleep apnea (~2009) TIA (transient ischemic attack) (~2013) Vision disorder Past Surgical History (Last Reviewed 08/23/21 @ 04:56 by Guille Rahman DO) Anesthesia History of ankle surgery (~2011) History of carpal tunnel release (~1982) History of rhinoplasty (~1994) History of surgery (~2020) Visit Care Team Role Provider Type Ana Rosa Matos DO Attending Provider Non-Staff Family Provider Primary Care Provider Referring Provider Specialty: Family Practice Address: [address] [place] [address], [facility] Email: Physical Therapy Initial Evaluation PT-OP-A Visit Information Start: 05/11/22 15:38 Freq: Status: Active Protocol: Document 05/23/22 10:30 AW (Rec: 05/11/22 15:53 AW [id number]) Out-Patient Physical Therapy Visit Information Visit Information Visit Type Initial Evaluation Visit Start Time 09:45 Visit Stop Time 10:30 Total Visit Minutes 45 Visit Number 1 Evaluation Information Evaluation Date 05/23/22 PT-OP-B Current Condition Start: 05/11/22 15:38 Freq: Status: Active Protocol: Document 05/23/22 10:30 AW (Rec: 05/11/22 15:53 AW [id number]) Current Condition History of Current Condition Onset Date chronic Current Complaints back pain, bilateral leg and foot pain History of Current Condition Sánchez reports chronic back, hip, knee, and foot pain. He has history of TBI/head trauma and diabetes. He had surgery on his left foot/Achilles in 2011 to correct his arch. He was planning to have the same surgery on the right side but was unable due to insurance limitations. He wears diabetic shoes with custom inserts. He typically has his inserts updated yearly but has not had a new pair now in ~4 years. He went to PT in 2017 while living in [place] and found it helpful. PT advised him to walk with a cane due to balance concerns. He uses a cane in either hand (tends to switch every now and then) which is helpful. He denies falls while using an AD. He denies frequent falls but states he is much more likely to fall without AD. He fell in August 2021 while cleaning ears with a q-tip. He went to ED and was found to have ruptured his eardrum. Sánchez has a history of housing insecurity but currently lives in [place] with his 6 yo son. He has full custody. Prior Treatments and Tests Outpatient PT 4 years ago Future Testing and Treatments Planned Follow up with podiatry in ~6 months. Treatment Goals Patient/Caregiver Goals Decrease back and LE pain, decrease falls risk, improve strength to be better able to care for 6 yo son. Personal Factors Other Personal Factors That May Effect Current daily smoker, TBI, Therapy/Recovery anxiety, depression. PT-OP-C Subjective Start: 05/11/22 15:38 Freq: Status: Active Protocol: Document 05/23/22 10:30 AW (Rec: 05/23/22 17:46 AW [id number]) Patient Questionnaires Oswestry Low Back Index Oswestry Score 42 Oswestry Impairment 40 to 59% Impaired (Score 40- 59) OP-PT Pain Assessment Pain Assessment Grid Paper Pain Assessment Grid Completed Yes: Scanned to EMR PT-OP-D Balance Start: 05/11/22 15:38 Freq: Status: Active Protocol: Document 05/23/22 10:30 AW (Rec: 05/24/22 15:12 AW [id number]) Balance Tests Single Limb Standing Single Limb- Right unable without support Single Limb- Left unable without support PT-OP-F Manual Assessment Start: 05/11/22 15:38 Freq: Status: Active Protocol: Document 05/23/22 10:30 AW (Rec: 05/23/22 17:51 AW [id number]) Manual Assessments Soft Tissue Assessment Soft Tissue Mobility Assessment Limited passive SLR bilaterally - lacking ~25 degrees to 90. Limited hip IR bilaterally with pain at end range. Limited hip ER on the right. Tender to palpation and bilateral lower lumbar paraspinals. PT-OP-G Mobility & Gait Start: 05/11/22 15:38 Freq: Status: Active Protocol: Document 05/23/22 10:30 AW (Rec: 05/23/22 17:51 AW [id number]) OP Mobility Evaluation Transfers Sit to Stand Definite use of hands but able on first attempt Functional Movements Squats Pt is able to squat low enough to safely orange picker an item from the floor but with altered mechanics OP Gait Assessment Comments Gait Comments Pt ambulates with SPC held in either hand. He tends to vault more during RLE stance but is generally steady with AD. PT-OP-H Neuro Start: 05/11/22 15:38 Freq: Status: Active Protocol: Document 05/23/22 10:30 AW (Rec: 05/23/22 17:53 AW [id number]) Sensation Evaluation Comments Summary Comments Pt has chronic neuropathy affecting light touch sensation in bilateral feet in stocking distribution. PT-OP-M Strength Start: 05/11/22 15:38 Freq: Status: Active Protocol: Document 05/23/22 10:30 AW (Rec: 05/24/22 15:02 AW [id number]) Hip Strength Hip Manual Muscle Testing bilat Flexion (L2) 4 Good Extension (S1) 3+ Fair+ Abduction 4 Good External Rotation 4+ Good+ Internal Rotation 4+ Good+ Comments Resisted R hip extension and resisted B IR provoke hip and back pain. Knee Strength Knee Manual Muscle Testing bilat Flexion (S2) 4 Good Extension (L3) 4+ Good+ Ankle/Foot Strength Ankle and Foot Manual Muscle Testing bilat Dorsiflexion (L4) 4 Good Plantarflexion (S1) 4- Good- PT-OP-T Assessment and Plan Start: 05/11/22 15:38 Freq: Status: Active Protocol: Document 05/23/22 10:30 AW (Rec: 05/24/22 15:12 AW [id number]) Physical Therapy Assessment Rehab Potential Rehabilitation Potential Good Evaluation Complexity Number of Personal Factors/Comorbidities 3 or More Number of Body Systems Impaired 4 or More Clinical Presentation at Evaluation Evolving Impairments Impairments Balance,Gait,Pain,Posture,ROM, Soft Tissue Mobility,Strength, Transfers Goals Five Impairment impairment with daily activities [facility] Goal (LTG) Pt will improve modified Oswestry score from 42 to 20 or less as a measure of improved ease with daily activities. Four Impairment gait [facility] Goal (LTG) Sánchez will walk 1500 feet with SPC on 6 Minute Walk Test for improved safety in community ambulation. LTG Duration 08/15/22 Three Impairment strength Short Term Goal (STG) Pt will complete sit to stand from standard height chair without UE support STG Duration 07/04/22 Aerial Survey Technician Goal (LTG) Pt will complete 5 Time Sit to Stand from standard height chair without UE support in 13 seconds or less. LTG Duration 08/15/22 Two Impairment balance [facility] Goal (LTG) Pt will improve Storm Balance score to 49/56 or greater as a measure of improved balance LTG Duration 08/15/22 One Impairment lacks HEP Short Term Goal (STG) Sánchez will be instructed in HEP for lower extremity strength and balance to support therapy services provided in clinic STG Duration 07/04/22 [facility] Goal (LTG) Sánchez will be independently engaged with HEP for LE strength and balance LTG Duration 08/15/22 Assessment Summary Assessment Sánchez is a 57 yo man with history of TBI and diabetes who attends outpatient physical therapy with complaints of chronic back, leg, and foot pain. He tends to fall when not using his cane but denies any falls while he is supported with the cane. He is motivated to improve his strength and reduce his falls risk in order to better care for his 6 yo son. Neuropathy, vision impairment, and history of TBI may factor into rehab prognosis. Sánchez is expected to benefit from skilled PT to reduce sedentary behaviors and improve strength and balance. Physical Therapy Plan Frequency and Duration Frequency of Treatment 2x/Week Plan of Care Start Date 05/23/22 Plan of Care End Date 08/15/22 Therapeutic Interventions Therapeutic Interventions Balance Training,Gait Training ,Home Exercise Program,Manual Therapy,Neuromuscular Re- education,Self-Care/Home Management,Soft Tissue Mobilization,Taping, Therapeutic Activities, Therapeutic Exercises Modalities Cold Pack/Ice Massage,Hot Packs Next Visit Focus/Plan Next Note Type Treatment Note Next Visit Plan Assess 2MWT vs 6MWT, Storm, vestibular screen, vision. Initiate hip mobility and strength. Corner balance.
--- NOTE | 2022-05-23 15:42 | PT.OPPOC ---
Physical, Occupational & Speech Therapy At [facility] Current Diagnoses Other chronic pain (05/23/22) Low back pain, unspecified (05/23/22) Difficulty in walking, not elsewhere classified (05/23/22) Visit Care Team Role Provider Type Ana Rosa Matos DO Attending Provider Non-Staff Family Provider Primary Care Provider Referring Provider Specialty: Family Practice Address: [address] [place] [address], [id number] Email: Plan Of Care PT-OP-T Assessment and Plan Start: 05/11/22 15:38 Freq: Status: Active Protocol: Document 05/23/22 10:30 AW (Rec: 05/24/22 15:12 AW [id number]) Physical Therapy Assessment Rehab Potential Rehabilitation Potential Good Evaluation Complexity Number of Personal Factors/Comorbidities 3 or More Number of Body Systems Impaired 4 or More Clinical Presentation at Evaluation Evolving Impairments Impairments Balance,Gait,Pain,Posture,ROM, Soft Tissue Mobility,Strength, Transfers Goals Five Impairment impairment with daily activities [facility] Goal (LTG) Pt will improve modified Oswestry score from 42 to 20 or less as a measure of improved ease with daily activities. Four Impairment gait [facility] Goal (LTG) Sánchez will walk 1500 feet with SPC on 6 Minute Walk Test for improved safety in community ambulation. LTG Duration 08/15/22 Three Impairment strength Short Term Goal (STG) Pt will complete sit to stand from standard height chair without UE support STG Duration 07/04/22 [facility] Goal (LTG) Pt will complete 5 Time Sit to Stand from standard height chair without UE support in 13 seconds or less. LTG Duration 08/15/22 Two Impairment balance Drilling Machine Operator Goal (LTG) Pt will improve Storm Balance score to 49/56 or greater as a measure of improved balance LTG Duration 08/15/22 One Impairment lacks HEP Short Term Goal (STG) Sánchez will be instructed in HEP for lower extremity strength and balance to support therapy services provided in clinic STG Duration 07/04/22 Drilling Machine Operator Goal (LTG) Sánchez will be independently engaged with HEP for LE strength and balance LTG Duration 08/15/22 Assessment Summary Assessment Sánchez is a 57 yo man with history of TBI and diabetes who attends outpatient physical therapy with complaints of chronic back, leg, and foot pain. He tends to fall when not using his cane but denies any falls while he is supported with the cane. He is motivated to improve his strength and reduce his falls risk in order to better care for his 6 yo son. Neuropathy, vision impairment, and history of TBI may factor into rehab prognosis. Sánchez is expected to benefit from skilled PT to reduce sedentary behaviors and improve strength and balance. Physical Therapy Plan Frequency and Duration Frequency of Treatment 2x/Week Plan of Care Start Date 05/23/22 Plan of Care End Date 08/15/22 Therapeutic Interventions Therapeutic Interventions Balance Training,Gait Training ,Home Exercise Program,Manual Therapy,Neuromuscular Re- education,Self-Care/Home Management,Soft Tissue Mobilization,Taping, Therapeutic Activities, Therapeutic Exercises Modalities Cold Pack/Ice Massage,Hot Packs Next Visit Focus/Plan Next Note Type Treatment Note Next Visit Plan Assess 2MWT vs 6MWT, Storm, vestibular screen, vision. Initiate hip mobility and strength. Corner balance. Plan of Care Dates Plan of Care Start Date 05/23/22 Plan of Care End Date 08/15/22 Electronically Signed by: Tiffany Conroy, PT 05/24/22 [id number] If you are in agreement with this Plan of Care, please return a signed and dated copy. I have reviewed this Plan of Care and certify that the skilled therapy services above are required to meet the patient?s needs. Physician Signature Date Printed Name and Credentials Clinical Instructor Signature Printed Name and Credentials
--- NOTE | 2022-05-25 10:44 | PT-OP ANOTE ---
Pt canceled on day of appointment due to illness.
--- NOTE | 2022-06-01 15:53 | PT-OP ANOTE ---
Pt did not show for scheduled appointment today. [facility] has not been functioning this week. Called and LVM to remind pt of next appointment.
--- NOTE | 2022-06-28 11:42 | PT.OTN ---
Current Diagnoses Other chronic pain (06/28/22) Low back pain, unspecified (06/28/22) Difficulty in walking, not elsewhere classified (06/28/22) Physical Therapy Treatment Note PT-OP-A Visit Information Start: 05/11/22 15:38 Freq: Status: Active Protocol: Document 06/28/22 09:48 AW (Rec: 06/28/22 10:33 AW [id number]) Out-Patient Physical Therapy Visit Information Visit Information Visit Type Treatment Note Visit Start Time 09:45 Visit Stop Time 10:30 Total Visit Minutes 45 Visit Number 2 Evaluation Information Evaluation Date 05/23/22 PT-OP-B Current Condition Start: 05/11/22 15:38 Freq: Status: Active Protocol: Document 05/23/22 10:30 AW (Rec: 05/11/22 15:53 AW [id number]) Current Condition History of Current Condition Onset Date chronic Current Complaints back pain, bilateral leg and foot pain History of Current Condition Sánchez reports chronic back, hip, knee, and foot pain. He has history of TBI/head trauma and diabetes. He had surgery on his left foot/Achilles in 2011 to correct his arch. He was planning to have the same surgery on the right side but was unable due to insurance limitations. He wears diabetic shoes with custom inserts. He typically has his inserts updated yearly but has not had a new pair now in ~4 years. He went to PT in 2017 while living in [place] and found it helpful. PT advised him to walk with a cane due to balance concerns. He uses a cane in either hand (tends to switch every now and then) which is helpful. He denies falls while using an AD. He denies frequent falls but states he is much more likely to fall without AD. He fell in August 2021 while cleaning ears with a q-tip. He went to ED and was found to have ruptured his eardrum. Sánchez has a history of housing insecurity but currently lives in [place] with his 6 yo son. He has full custody. Prior Treatments and Tests Outpatient PT 4 years ago Future Testing and Treatments Planned Follow up with podiatry in ~6 months. Treatment Goals Patient/Caregiver Goals Decrease back and LE pain, decrease falls risk, improve strength to be better able to care for 6 yo son. Personal Factors Other Personal Factors That May Effect Current daily smoker, TBI, Therapy/Recovery anxiety, depression. 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 Has found that getting in and out of his sedan has been bothering his back. Pt notes he will be following up with podiatry soon for new shoes/inserts. PT-OP-D Balance Start: 05/11/22 15:38 Freq: Status: Active Protocol: Document 05/23/22 10:30 AW (Rec: 05/24/22 15:12 AW [id number]) Balance Tests Single Limb Standing Single Limb- Right unable without support Single Limb- Left unable without support PT-OP-E Functional Tests Start: 05/11/22 15:38 Freq: Status: Active Protocol: Document 06/28/22 09:48 AW (Rec: 06/28/22 10:33 AW [id number]) Functional Tests 2 Minute Walk Test Distance 468.7 ft Device Used SPC Comments 1.24 m/s PT-OP-F Manual Assessment Start: 05/11/22 15:38 Freq: Status: Active Protocol: Document 05/23/22 10:30 AW (Rec: 05/23/22 17:51 AW [id number]) Manual Assessments Soft Tissue Assessment Soft Tissue Mobility Assessment Limited passive SLR bilaterally - lacking ~25 degrees to 90. Limited hip IR bilaterally with pain at end range. Limited hip ER on the right. Tender to palpation and bilateral lower lumbar paraspinals. PT-OP-G Mobility & Gait Start: 05/11/22 15:38 Freq: Status: Active Protocol: Document 05/23/22 10:30 AW (Rec: 05/23/22 17:51 AW [id number]) OP Mobility Evaluation Transfers Sit to Stand Definite use of hands but able on first attempt Functional Movements Squats Pt is able to squat low enough to safely bulk picker an item from the floor but with altered mechanics OP Gait Assessment Comments Gait Comments Pt ambulates with SPC held in either hand. He tends to vault more during RLE stance but is generally steady with AD. PT-OP-H Neuro Start: 05/11/22 15:38 Freq: Status: Active Protocol: Document 05/23/22 10:30 AW (Rec: 05/23/22 17:53 AW [id number]) Sensation Evaluation Comments Summary Comments Pt has chronic neuropathy affecting light touch sensation in bilateral feet in stocking distribution. PT-OP-M Strength Start: 05/11/22 15:38 Freq: Status: Active Protocol: Document 05/23/22 10:30 AW (Rec: 05/24/22 15:02 AW [id number]) Hip Strength Hip Manual Muscle Testing bilat Flexion (L2) 4 Good Extension (S1) 3+ Fair+ Abduction 4 Good External Rotation 4+ Good+ Internal Rotation 4+ Good+ Comments Resisted R hip extension and resisted B IR provoke hip and back pain. Knee Strength Knee Manual Muscle Testing bilat Flexion (S2) 4 Good Extension (L3) 4+ Good+ Ankle/Foot Strength Ankle and Foot Manual Muscle Testing bilat Dorsiflexion (L4) 4 Good Plantarflexion (S1) 4- Good- PT-OP-Q Treatments Start: 05/11/22 15:38 Freq: Status: Active Protocol: Document 06/28/22 09:48 AW (Rec: 06/28/22 10:33 AW [id number]) Cardio Equipment Recumbent Elliptical ([place]a) Duration (Minutes) 5 Resistance 5 (3 min)>7 (last 2 min) Seat Position 9 seen Therapeutic Exercises Supine Exercises SKTC Supine Exercise Name SKTC Side bilateral Reps/Minutes 10SH x 10 Comments HEP bridge Supine Exercise Name bridge Resistance AROM Reps/Minutes no hold; x 10 piriformis stretch Supine Exercise Name piriformis stretch - opp foot planted Side bilateral Reps/Minutes 30 SH x 3 Comments HEP Sitting Exercises HS stretch Sitting Exercise Name HS stretch Side bilateral Reps/Minutes 30 SH x 4 Comments HEP Therapeutic Activity Therapeutic Activity car transfers Name car transfers Comments simulated car transfer with pt lifting legs over bolster to pivot in/out of car followed by sit to stand. pt definitely needs hands on knees for sit to stand. cued core engagement throughout and pt states feels more confident with core awareness. PT-OP-T Assessment and Plan Start: 05/11/22 15:38 Freq: Status: Active Protocol: Document 06/28/22 09:48 AW (Rec: 06/28/22 10:33 AW [id number]) Physical Therapy Assessment Goals Five Impairment impairment with daily activities Custodial Goal (LTG) Pt will improve modified Oswestry score from 42 to 20 or less as a measure of improved ease with daily activities. Four Impairment gait Custodial Goal (LTG) Sánchez will walk 1500 feet with SPC on 6 Minute Walk Test for improved safety in community ambulation. LTG Duration 08/15/22 Three Impairment strength Short Term Goal (STG) Pt will complete sit to stand from standard height chair without UE support STG Duration 07/04/22 Custodial Goal (LTG) Pt will complete 5 Time Sit to Stand from standard height chair without UE support in 13 seconds or less. LTG Duration 08/15/22 Two Impairment balance Residential Real Estate Sales Manager Goal (LTG) Pt will improve Storm Balance score to 49/56 or greater as a measure of improved balance LTG Duration 08/15/22 One Impairment lacks HEP Short Term Goal (STG) Sánchez will be instructed in HEP for lower extremity strength and balance to support therapy services provided in clinic STG Duration 07/04/22 Residential Real Estate Sales Manager Goal (LTG) Sánchez will be independently engaged with HEP for LE strength and balance LTG Duration 08/15/22 Assessment Summary Assessment Sánchez was unable to attend for several weeks due to snow, illness, and multiple appointments for his son. He is motivated to maintain a regular therapy schedule now. He did well with all stretches today and noted feeling better upon leaving than when he arrived. Sánchez tends to hold his breath during exercise and benefits from cues for breath awareness. Tends to hold breath Physical Therapy Plan Frequency and Duration Frequency of Treatment 2x/Week Plan of Care Start Date 05/23/22 Plan of Care End Date 08/15/22 Therapeutic Interventions Therapeutic Interventions Balance Training,Gait Training ,Home Exercise Program,Manual Therapy,Neuromuscular Re- education,Self-Care/Home Management,Soft Tissue Mobilization,Taping, Therapeutic Activities, Therapeutic Exercises Modalities Cold Pack/Ice Massage,Hot Packs Next Visit Focus/Plan Next Note Type Treatment Note Next Visit Plan Assess response to HEP. Assess sleep positioning for possible modifications. Review /simulate car transfers. Sit to stand. Standing hip strength. Issue band and HEP for hip strength if appropriate. STM R QL/glute as needed for pain management.
--- NOTE | 2022-06-30 13:05 | PT.OTN ---
Current Diagnoses Other chronic pain (06/30/22) Low back pain, unspecified (06/30/22) Difficulty in walking, not elsewhere classified (06/30/22) Physical Therapy Treatment Note PT-OP-A Visit Information Start: 05/11/22 15:38 Freq: Status: Active Protocol: Document 06/30/22 12:19 SP (Rec: 06/30/22 13:06 SP [id number]) Out-Patient Physical Therapy Visit Information Visit Information Visit Type Treatment Note Visit Start Time 12:19 Visit Stop Time 13:05 Total Visit Minutes 46 Visit Number 3 Number of SECURITY SCREENER Visits 1 PT-OP-B Current Condition Start: 05/11/22 15:38 Freq: Status: Active Protocol: Document 05/23/22 10:30 AW (Rec: 05/11/22 15:53 AW [id number]) Current Condition History of Current Condition Onset Date chronic Current Complaints back pain, bilateral leg and foot pain History of Current Condition Sánchez reports chronic back, hip, knee, and foot pain. He has history of TBI/head trauma and diabetes. He had surgery on his left foot/Achilles in 2011 to correct his arch. He was planning to have the same surgery on the right side but was unable due to insurance limitations. He wears diabetic shoes with custom inserts. He typically has his inserts updated yearly but has not had a new pair now in ~4 years. He went to PT in 2017 while living in [place] and found it helpful. PT advised him to walk with a cane due to balance concerns. He uses a cane in either hand (tends to switch every now and then) which is helpful. He denies falls while using an AD. He denies frequent falls but states he is much more likely to fall without AD. He fell in August 2021 while cleaning ears with a q-tip. He went to ED and was found to have ruptured his eardrum. Sánchez has a history of housing insecurity but currently lives in [place] with his 6 yo son. He has full custody. Prior Treatments and Tests Outpatient PT 4 years ago Future Testing and Treatments Planned Follow up with podiatry in ~6 months. Treatment Goals Patient/Caregiver Goals Decrease back and LE pain, decrease falls risk, improve strength to be better able to care for 6 yo son. Personal Factors Other Personal Factors That May Effect Current daily smoker, TBI, Therapy/Recovery anxiety, depression. PT-OP-C Subjective Start: 05/11/22 15:38 Freq: Status: Active Protocol: Document 06/30/22 12:19 SP (Rec: 06/30/22 13:06 SP [id number]) OP-PT Subjective Patient Comments Patient Comments Pt reports RL LB tight, wants to walk on TM today, get back to doing in community with grandson riding bike. PT-OP-D Balance Start: 05/11/22 15:38 Freq: Status: Active Protocol: Document 05/23/22 10:30 AW (Rec: 05/24/22 15:12 AW [id number]) Balance Tests Single Limb Standing Single Limb- Right unable without support Single Limb- Left unable without support PT-OP-E Functional Tests Start: 05/11/22 15:38 Freq: Status: Active Protocol: Document 06/28/22 09:48 AW (Rec: 06/28/22 10:33 AW [id number]) Functional Tests 2 Minute Walk Test Distance 468.7 ft Device Used SPC Comments 1.24 m/s PT-OP-F Manual Assessment Start: 05/11/22 15:38 Freq: Status: Active Protocol: Document 05/23/22 10:30 AW (Rec: 05/23/22 17:51 AW [id number]) Manual Assessments Soft Tissue Assessment Soft Tissue Mobility Assessment Limited passive SLR bilaterally - lacking ~25 degrees to 90. Limited hip IR bilaterally with pain at end range. Limited hip ER on the right. Tender to palpation and bilateral lower lumbar paraspinals. 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 He tends to vault more during RLE stance but is generally steady with AD. PT-OP-H Neuro Start: 05/11/22 15:38 Freq: Status: Active Protocol: Document 05/23/22 10:30 AW (Rec: 05/23/22 17:53 AW [id number]) Sensation Evaluation Comments Summary Comments Pt has chronic neuropathy affecting light touch sensation in bilateral feet in stocking distribution. PT-OP-M Strength Start: 05/11/22 15:38 Freq: Status: Active Protocol: Document 05/23/22 10:30 AW (Rec: 05/24/22 15:02 AW [id number]) Hip Strength Hip Manual Muscle Testing bilat Flexion (L2) 4 Good Extension (S1) 3+ Fair+ Abduction 4 Good External Rotation 4+ Good+ Internal Rotation 4+ Good+ Comments Resisted R hip extension and resisted B IR provoke hip and back pain. Knee Strength Knee Manual Muscle Testing bilat Flexion (S2) 4 Good Extension (L3) 4+ Good+ Ankle/Foot Strength Ankle and Foot Manual Muscle Testing bilat Dorsiflexion (L4) 4 Good Plantarflexion (S1) 4- Good- PT-OP-Q Treatments Start: 05/11/22 15:38 Freq: Status: Active Protocol: Document 06/30/22 12:19 SP (Rec: 06/30/22 13:06 SP [id number]) Cardio Equipment Treadmill Duration (Minutes) 6 Speed 2.6 no UE support, 3.2 w/ BUe support Incline 0 Other cued increase stride, safety speed Therapeutic Exercises Sitting Exercises piriformis stretch Sitting Exercise Name added to HEP Side bilateral Reps/Minutes 30 x3 Comments cued use UE support LE over opp LE STS Sitting Exercise Name added to HEP Equipment Used green chair 18, arms across chest Reps/Minutes 2x5 reps Comments cued scoot forward, feet back hip hinge asc/descend core fac - alot less pn HS stretch Sitting Exercise Name HS stretch Side bilateral Reps/Minutes 30 SH x 4 Comments HEP Standing Exercises resisted side stepping Standing Exercise Name added to HEP: lateral, fwd, Bwd Side bilateral Resistance TB #2 loop at ankles Reps/Minutes 2x10 Comments cued tall, core fac, hip abd, ext Standing Exercise Name Reviewed past PT ther ex Side bilateral Resistance TB #2 loop at ankles Reps/Minutes 2x10 Therapeutic Activity Therapeutic Activity car transfers Name car transfers Comments simulated car transfer with pt lifting legs slider pivot in/ out of car followed by sit to stand, cued take smaller lateral steps to allow core/ pelvis alignment/stability. pt improved able come to stand scoot forward edge seat then to stand arms across chest cued hip hinge and core fac needed to allow asc/descend slow controlled. Gait Training Gait Activity SPC Description changed to LUE use SPC patternig 2pt gait for support RLE Device Used SPC Level of Assistance S Surface carpet/tile Distance/Duration 20 ft front mirror x4 laps, 170 ft clinic lap Treatment Focus cued tall chest lift posturing , SPC in LUE patterning w/RLE safe pace Comments Pt improved, decrease LUE WB on SPC and correct patterning with RLE, occasional cues for trunk alignment level shld and pelvis. Self-Care/Home Management Treatment Education Patient Education Home Exercise Program,Pain Management,Posture,Safety Other Education Time spent discussion level and some incline community surface locations to walk ([employer], [employer], [employer] [place], [employer]). Pt considering buying trek poles and wondered if would help with posture and endurance walking better vs SPC. Pt improved gait alignment and less UE WB changing SPC in LUE to support RLE (was suggested by gi technician, wanted to know how and why to do correctly). Will assess Trek Poles next tx for comparison if can pattern well. PT-OP-T Assessment and Plan Start: 05/11/22 15:38 Freq: Status: Active Protocol: Document 06/30/22 12:19 SP (Rec: 06/30/22 13:06 SP [id number]) Physical Therapy Assessment Goals Five Impairment impairment with daily activities Hydroblaster Goal (LTG) Pt will improve modified Oswestry score from 42 to 20 or less as a measure of improved ease with daily activities. Four Impairment gait Hydroblaster Goal (LTG) Sánchez will walk 1500 feet with SPC on 6 Minute Walk Test for improved safety in community ambulation. LTG Duration 08/15/22 Three Impairment strength Short Term Goal (STG) Pt will complete sit to stand from standard height chair without UE support STG Duration 07/04/22 Intermediate Goal (LTG) Pt will complete 5 Time Sit to Stand from standard height chair without UE support in 13 seconds or less. LTG Duration 08/15/22 Two Impairment balance Hydroblaster Goal (LTG) Pt will improve Storm Balance score to 49/56 or greater as a measure of improved balance LTG Duration 08/15/22 One Impairment lacks HEP Short Term Goal (STG) Sánchez will be instructed in HEP for lower extremity strength and balance to support therapy services provided in clinic STG Duration 07/04/22 Intermediate Goal (LTG) Sánchez will be independently engaged with HEP for LE strength and balance LTG Duration 08/15/22 Assessment Summary Assessment Pt improved trunk alignment and decrease UE support changed patterning SPC in LUE w/ RLE 2pt gait. Pt able to complete repeated STS from chair arms across chest post cues for scoot forward edge chair, feet back underneath him and hip hinge forward asc/ descend slow descent, contact chair if needed for safety. Pt ableto pivot assimulation in/ out car LEs smaller lateral step repositioning less back/R hip discomfort. Pt tolerated added hip strengthening, added HO and TB for home for carryover. Pt responded well to hip IR/ER piriformis stretch end tx. Physical Therapy Plan Frequency and Duration Frequency of Treatment 2x/Week Plan of Care Start Date 05/23/22 Plan of Care End Date 08/15/22 Therapeutic Interventions Therapeutic Interventions Balance Training,Gait Training ,Home Exercise Program,Manual Therapy,Neuromuscular Re- education,Self-Care/Home Management,Soft Tissue Mobilization,Taping, Therapeutic Activities, Therapeutic Exercises Modalities Cold Pack/Ice Massage,Hot Packs Next Visit Focus/Plan Next Note Type Treatment Note Next Visit Plan Assess response to HEP. Next tx: assess use of Trek Poles. Assess sleep positioning for possible modifications. Ask how car transfer doing? Recheck Sit to stand without UE suppport. Issue band and HEP for hip strength if appropriate. STM R QL/glute as needed for pain management.
--- NOTE | 2022-07-05 12:19 | PT.OTN ---
Current Diagnoses Other chronic pain (07/05/22) Low back pain, unspecified (07/05/22) Difficulty in walking, not elsewhere classified (07/05/22) Physical Therapy Treatment Note PT-OP-A Visit Information Start: 05/11/22 15:38 Freq: Status: Active Protocol: Document 07/05/22 08:59 AW (Rec: 07/05/22 12:18 AW [id number]) Out-Patient Physical Therapy Visit Information Visit Information Visit Type Treatment Note Visit Start Time 09:45 Visit Stop Time 10:30 Total Visit Minutes 45 Visit Number 4 Number of GERMAN PROFESSOR Visits 0 Evaluation Information Evaluation Date 05/23/22 PT-OP-B Current Condition Start: 05/11/22 15:38 Freq: Status: Active Protocol: Document 05/23/22 10:30 AW (Rec: 05/11/22 15:53 AW [id number]) Current Condition History of Current Condition Onset Date chronic Current Complaints back pain, bilateral leg and foot pain History of Current Condition Sánchez reports chronic back, hip, knee, and foot pain. He has history of TBI/head trauma and diabetes. He had surgery on his left foot/Achilles in 2011 to correct his arch. He was planning to have the same surgery on the right side but was unable due to insurance limitations. He wears diabetic shoes with custom inserts. He typically has his inserts updated yearly but has not had a new pair now in ~4 years. He went to PT in 2017 while living in [place] and found it helpful. PT advised him to walk with a cane due to balance concerns. He uses a cane in either hand (tends to switch every now and then) which is helpful. He denies falls while using an AD. He denies frequent falls but states he is much more likely to fall without AD. He fell in August 2021 while cleaning ears with a q-tip. He went to ED and was found to have ruptured his eardrum. Sánchez has a history of housing insecurity but currently lives in [place] with his 6 yo son. He has full custody. Prior Treatments and Tests Outpatient PT 4 years ago Future Testing and Treatments Planned Follow up with podiatry in ~6 months. Treatment Goals Patient/Caregiver Goals Decrease back and LE pain, decrease falls risk, improve strength to be better able to care for 6 yo son. Personal Factors Other Personal Factors That May Effect Current daily smoker, TBI, Therapy/Recovery anxiety, depression. PT-OP-C Subjective Start: 05/11/22 15:38 Freq: Status: Active Protocol: Document 07/05/22 08:59 AW (Rec: 07/05/22 12:18 AW [id number]) OP-PT Subjective Patient Comments Patient Comments Pt continues to go for short walks. Did try [employer] and liked it. PT-OP-D Balance Start: 05/11/22 15:38 Freq: Status: Active Protocol: Document 05/23/22 10:30 AW (Rec: 05/24/22 15:12 AW [id number]) Balance Tests Single Limb Standing Single Limb- Right unable without support Single Limb- Left unable without support PT-OP-E Functional Tests Start: 05/11/22 15:38 Freq: Status: Active Protocol: Document 06/28/22 09:48 AW (Rec: 06/28/22 10:33 AW [id number]) Functional Tests 2 Minute Walk Test Distance 468.7 ft Device Used SPC Comments 1.24 m/s PT-OP-F Manual Assessment Start: 05/11/22 15:38 Freq: Status: Active Protocol: Document 05/23/22 10:30 AW (Rec: 05/23/22 17:51 AW [id number]) Manual Assessments Soft Tissue Assessment Soft Tissue Mobility Assessment Limited passive SLR bilaterally - lacking ~25 degrees to 90. Limited hip IR bilaterally with pain at end range. Limited hip ER on the right. Tender to palpation and bilateral lower lumbar paraspinals. PT-OP-G Mobility & Gait Start: 05/11/22 15:38 Freq: Status: Active Protocol: Document 05/23/22 10:30 AW (Rec: 05/23/22 17:51 AW [id number]) OP Mobility Evaluation Transfers Sit to Stand Definite use of hands but able on first attempt Functional Movements Squats Pt is able to squat low enough to safely coal picker an item from the floor but with altered mechanics OP Gait Assessment Comments Gait Comments Pt ambulates with SPC held in either hand. He tends to vault more during RLE stance but is generally steady with AD. PT-OP-H Neuro Start: 05/11/22 15:38 Freq: Status: Active Protocol: Document 05/23/22 10:30 AW (Rec: 05/23/22 17:53 AW [id number]) Sensation Evaluation Comments Summary Comments Pt has chronic neuropathy affecting light touch sensation in bilateral feet in stocking distribution. PT-OP-M Strength Start: 05/11/22 15:38 Freq: Status: Active Protocol: Document 05/23/22 10:30 AW (Rec: 05/24/22 15:02 AW [id number]) Hip Strength Hip Manual Muscle Testing bilat Flexion (L2) 4 Good Extension (S1) 3+ Fair+ Abduction 4 Good External Rotation 4+ Good+ Internal Rotation 4+ Good+ Comments Resisted R hip extension and resisted B IR provoke hip and back pain. Knee Strength Knee Manual Muscle Testing bilat Flexion (S2) 4 Good Extension (L3) 4+ Good+ Ankle/Foot Strength Ankle and Foot Manual Muscle Testing bilat Dorsiflexion (L4) 4 Good Plantarflexion (S1) 4- Good- PT-OP-Q Treatments Start: 05/11/22 15:38 Freq: Status: Active Protocol: Document 07/05/22 08:59 AW (Rec: 07/05/22 12:18 AW [id number]) Cardio Equipment Treadmill Duration (Minutes) 6 Speed 2.6 no UE support, 3.2 w/ BUe support Incline 0 Other cued foot clearance Therapeutic Exercises Sitting Exercises STS Sitting Exercise Name added to HEP Equipment Used green chair 18, arms across chest Reps/Minutes 2x5 reps Comments cued scoot forward, feet back hip hinge asc/descend core fac - alot less pn HS stretch Sitting Exercise Name HS stretch Side bilateral Reps/Minutes 30 SH x 4 Comments HEP Standing Exercises resisted side stepping Standing Exercise Name lateral, fwd, Bwd Side bilateral Resistance TB #2 loop at ankles Reps/Minutes 2x10 Comments HEP hip abd, ext Side bilateral Resistance TB #2 loop at ankles Reps/Minutes 2x10 Comments ext caused back pain Manual Therapy Treatment Soft Tissue Mobilization R QL/glute Body Location R QL/glute Mobilization Type Strumming,Sustained Pressure Intensity/Depth Moderate Body Position Sidelying Comments Discussed and practiced diaphragmatic breathing in sidelying during STM Self-Care/Home Management Treatment Education Patient Education Home Exercise Program Other Education Added resisted side step for HEP PT-OP-T Assessment and Plan Start: 05/11/22 15:38 Freq: Status: Active Protocol: Document 07/05/22 08:59 AW (Rec: 07/05/22 12:18 AW [id number]) Physical Therapy Assessment Goals Five Impairment impairment with daily activities Skilled Nursing Goal (LTG) Pt will improve modified Oswestry score from 42 to 20 or less as a measure of improved ease with daily activities. Four Impairment gait Enforcement Safety Officer Goal (LTG) Sánchez will walk 1500 feet with SPC on 6 Minute Walk Test for improved safety in community ambulation. LTG Duration 08/15/22 Three Impairment strength Short Term Goal (STG) Pt will complete sit to stand from standard height chair without UE support STG Duration 07/04/22 Skilled Nursing Goal (LTG) Pt will complete 5 Time Sit to Stand from standard height chair without UE support in 13 seconds or less. LTG Duration 08/15/22 Two Impairment balance Skilled Nursing Goal (LTG) Pt will improve Storm Balance score to 49/56 or greater as a measure of improved balance LTG Duration 08/15/22 One Impairment lacks HEP Short Term Goal (STG) Sánchez will be instructed in HEP for lower extremity strength and balance to support therapy services provided in clinic STG Duration 07/04/22 Skilled Nursing Goal (LTG) Sánchez will be independently engaged with HEP for LE strength and balance LTG Duration 08/15/22 Assessment Summary Assessment Pt has decreased weightbearing on cane during observation today. Did not trial trekking poles as planned due to time constraints but will follow up next visit. Initiated STM for right QL and glute. Will follow up with instruction on self-STM Physical Therapy Plan Frequency and Duration Frequency of Treatment 2x/Week Plan of Care Start Date 05/23/22 Plan of Care End Date 08/15/22 Therapeutic Interventions Therapeutic Interventions Balance Training,Gait Training ,Home Exercise Program,Manual Therapy,Neuromuscular Re- education,Self-Care/Home Management,Soft Tissue Mobilization,Taping, Therapeutic Activities, Therapeutic Exercises Modalities Cold Pack/Ice Massage,Hot Packs Next Visit Focus/Plan Next Note Type Treatment Note Next Visit Plan Assess response to HEP. Next tx: assess use of Trek Poles. Assess sleep positioning for possible modifications. Ask how car transfer doing? STM R QL/glute as needed for pain management. Instruct in self- STM
--- NOTE | 2022-07-07 11:18 | PT.OTN ---
Current Diagnoses Other chronic pain (07/07/22) Low back pain, unspecified (07/07/22) Difficulty in walking, not elsewhere classified (07/07/22) Physical Therapy Treatment Note PT-OP-A Visit Information Start: 05/11/22 15:38 Freq: Status: Active Protocol: Document 07/07/22 10:34 SP (Rec: 07/07/22 11:31 SP [id number]) Out-Patient Physical Therapy Visit Information Visit Information Visit Type Treatment Note Visit Start Time 10:34 Visit Stop Time 11:18 Total Visit Minutes 44 Visit Number 5 Number of STRIKE PLANNING APPLICATIONS Visits 1 Evaluation Information Evaluation Date 05/23/22 PT-OP-B Current Condition Start: 05/11/22 15:38 Freq: Status: Active Protocol: Document 05/23/22 10:30 AW (Rec: 05/11/22 15:53 AW [id number]) Current Condition History of Current Condition Onset Date chronic Current Complaints back pain, bilateral leg and foot pain History of Current Condition Sánchez reports chronic back, hip, knee, and foot pain. He has history of TBI/head trauma and diabetes. He had surgery on his left foot/Achilles in 2011 to correct his arch. He was planning to have the same surgery on the right side but was unable due to insurance limitations. He wears diabetic shoes with custom inserts. He typically has his inserts updated yearly but has not had a new pair now in ~4 years. He went to PT in 2017 while living in [place] and found it helpful. PT advised him to walk with a cane due to balance concerns. He uses a cane in either hand (tends to switch every now and then) which is helpful. He denies falls while using an AD. He denies frequent falls but states he is much more likely to fall without AD. He fell in August 2021 while cleaning ears with a q-tip. He went to ED and was found to have ruptured his eardrum. Sánchez has a history of housing insecurity but currently lives in [place] with his 6 yo son. He has full custody. Prior Treatments and Tests Outpatient PT 4 years ago Future Testing and Treatments Planned Follow up with podiatry in ~6 months. Treatment Goals Patient/Caregiver Goals Decrease back and LE pain, decrease falls risk, improve strength to be better able to care for 6 yo son. Personal Factors Other Personal Factors That May Effect Current daily smoker, TBI, Therapy/Recovery anxiety, depression. PT-OP-C Subjective Start: 05/11/22 15:38 Freq: Status: Active Protocol: Document 07/07/22 10:34 SP (Rec: 07/07/22 11:31 SP [id number]) OP-PT Subjective Patient Comments Patient Comments Pt reports has a walk through for Silver [employer]neakers at [employer] today and wants to trial work out machines during tx to see if would be good to do and help him carryover get stronger at center. PT-OP-D Balance Start: 05/11/22 15:38 Freq: Status: Active Protocol: Document 05/23/22 10:30 AW (Rec: 05/24/22 15:12 AW [id number]) Balance Tests Single Limb Standing Single Limb- Right unable without support Single Limb- Left unable without support PT-OP-E Functional Tests Start: 05/11/22 15:38 Freq: Status: Active Protocol: Document 06/28/22 09:48 AW (Rec: 06/28/22 10:33 AW [id number]) Functional Tests 2 Minute Walk Test Distance 468.7 ft Device Used SPC Comments 1.24 m/s PT-OP-F Manual Assessment Start: 05/11/22 15:38 Freq: Status: Active Protocol: Document 05/23/22 10:30 AW (Rec: 05/23/22 17:51 AW [id number]) Manual Assessments Soft Tissue Assessment Soft Tissue Mobility Assessment Limited passive SLR bilaterally - lacking ~25 degrees to 90. Limited hip IR bilaterally with pain at end range. Limited hip ER on the right. Tender to palpation and bilateral lower lumbar paraspinals. PT-OP-G Mobility & Gait Start: 05/11/22 15:38 Freq: Status: Active Protocol: Document 05/23/22 10:30 AW (Rec: 05/23/22 17:51 AW [id number]) OP Mobility Evaluation Transfers Sit to Stand Definite use of hands but able on first attempt Functional Movements Squats Pt is able to squat low enough to safely sampler pickup an item from the floor but with altered mechanics OP Gait Assessment Comments Gait Comments Pt ambulates with SPC held in either hand. He tends to vault more during RLE stance but is generally steady with AD. PT-OP-H Neuro Start: 05/11/22 15:38 Freq: Status: Active Protocol: Document 05/23/22 10:30 AW (Rec: 05/23/22 17:53 AW [id number]) Sensation Evaluation Comments Summary Comments Pt has chronic neuropathy affecting light touch sensation in bilateral feet in stocking distribution. PT-OP-M Strength Start: 05/11/22 15:38 Freq: Status: Active Protocol: Document 05/23/22 10:30 AW (Rec: 05/24/22 15:02 AW [id number]) Hip Strength Hip Manual Muscle Testing bilat Flexion (L2) 4 Good Extension (S1) 3+ Fair+ Abduction 4 Good External Rotation 4+ Good+ Internal Rotation 4+ Good+ Comments Resisted R hip extension and resisted B IR provoke hip and back pain. Knee Strength Knee Manual Muscle Testing bilat Flexion (S2) 4 Good Extension (L3) 4+ Good+ Ankle/Foot Strength Ankle and Foot Manual Muscle Testing bilat Dorsiflexion (L4) 4 Good Plantarflexion (S1) 4- Good- PT-OP-Q Treatments Start: 05/11/22 15:38 Freq: Status: Active Protocol: Document 07/07/22 10:34 SP (Rec: 07/07/22 11:31 SP [id number]) Gym Equipment Cable Column (Body Solid) core step outs Details slow core controlled side step Resistance #1 no pin Reps/Time x8 reps each side paloff press Details cued neutral spine, soft knee Resistance #1 no pin Reps/Time x10 Leg Curl Resistance #4 Reps/Time x20 leg ext Details cued not full flexion/ ext safey knee comfort good muscle work painfree Resistance #4 Reps/Time x20 abductors Resistance #2 Reps/Time x15 adductors Resistance #3 Reps/Time x15 Rows Resistance #2 Reps/Time x15 Lat Pull Down Resistance #2 Reps/Time x15 Shuttle Rebound squats Exercise Details mini squat Reps/Duration x10 Comments Son wants see if home round minitrampoline can be useful. Cued hip hinge hover buttocks back, knees with/behind toes slow controlled, neutral CS and PPT/neutral LS- good feedback work on little balance wt shift, good self recovery, contact bar as needed- Supervision Self-Care/Home Management Treatment Education Patient Education Body Mechanics,Home Exercise Program,Posture,Safety Other Education Lots time spent introducation to gym equipment but pt understands still needs to get orientation to each facility equipment for safety and as help needed for proper form. CUed proper form and set up. Pt states got new CPAP equipement and sleeping better , uses pillows properly for back health/ alignment. Discussed use thumper massage gun/tool will bring to show safety and to assist him if needed proper use or discussed ball wall and theracane but not performed in PT, future if needed. PT-OP-T Assessment and Plan Start: 05/11/22 15:38 Freq: Status: Active Protocol: Document 07/07/22 10:34 SP (Rec: 07/07/22 11:31 SP [id number]) Physical Therapy Assessment Goals Five Impairment impairment with daily activities Senior Living Goal (LTG) Pt will improve modified Oswestry score from 42 to 20 or less as a measure of improved ease with daily activities. Four Impairment gait Interventional Radiology Tech Goal (LTG) Sánchez will walk 1500 feet with SPC on 6 Minute Walk Test for improved safety in community ambulation. LTG Duration 08/15/22 Three Impairment strength Short Term Goal (STG) Pt will complete sit to stand from standard height chair without UE support STG Duration 07/04/22 Senior Living Goal (LTG) Pt will complete 5 Time Sit to Stand from standard height chair without UE support in 13 seconds or less. LTG Duration 08/15/22 Two Impairment balance Interventional Radiology Tech Goal (LTG) Pt will improve Storm Balance score to 49/56 or greater as a measure of improved balance LTG Duration 08/15/22 One Impairment lacks HEP Short Term Goal (STG) Sánchez will be instructed in HEP for lower extremity strength and balance to support therapy services provided in clinic STG Duration 07/04/22 Senior Living Goal (LTG) Sánchez will be independently engaged with HEP for LE strength and balance LTG Duration 08/15/22 Assessment Summary Assessment Pt good response to intruction of gym equipment for conversation/ performance if helpful to use at [facility] carryover. Pt good set up/alignment corrections understanding throughout all ther ex today. Good safety and stability for use trampoline at home with son, knows need rail safety support. Discussed use trek poles and car transfer next tx . Tx focused on self requests gym. Physical Therapy Plan Frequency and Duration Frequency of Treatment 2x/Week Plan of Care Start Date 05/23/22 Plan of Care End Date 08/15/22 Therapeutic Interventions Therapeutic Interventions Balance Training,Gait Training ,Home Exercise Program,Manual Therapy,Neuromuscular Re- education,Self-Care/Home Management,Soft Tissue Mobilization,Taping, Therapeutic Activities, Therapeutic Exercises Modalities Cold Pack/Ice Massage,Hot Packs Next Visit Focus/Plan Next Note Type Treatment Note Next Visit Plan Recheck gym ex and [employer] walk through and want to utilize on own? Next tx: assess use of Trek Poles, car transfer with pt. (cleaning out car for next tx) STM R QL /glute as needed for pain management. Instruct in self- STM
--- NOTE | 2022-07-11 12:35 | PT.OTN ---
Current Diagnoses Other chronic pain (07/11/22) Low back pain, unspecified (07/11/22) Difficulty in walking, not elsewhere classified (07/11/22) Physical Therapy Treatment Note PT-OP-A Visit Information Start: 05/11/22 15:38 Freq: Status: Active Protocol: Document 07/11/22 08:47 AW (Rec: 07/11/22 10:35 AW [id number]) Out-Patient Physical Therapy Visit Information Visit Information Visit Type Treatment Note Visit Start Time 09:45 Visit Stop Time 10:30 Total Visit Minutes 45 Visit Number 6 Number of INFORMATION ASSISTANT Visits 0 Evaluation Information Evaluation Date 05/23/22 PT-OP-B Current Condition Start: 05/11/22 15:38 Freq: Status: Active Protocol: Document 05/23/22 10:30 AW (Rec: 05/11/22 15:53 AW [id number]) Current Condition History of Current Condition Onset Date chronic Current Complaints back pain, bilateral leg and foot pain History of Current Condition Sánchez reports chronic back, hip, knee, and foot pain. He has history of TBI/head trauma and diabetes. He had surgery on his left foot/Achilles in 2011 to correct his arch. He was planning to have the same surgery on the right side but was unable due to insurance limitations. He wears diabetic shoes with custom inserts. He typically has his inserts updated yearly but has not had a new pair now in ~4 years. He went to PT in 2017 while living in [place] and found it helpful. PT advised him to walk with a cane due to balance concerns. He uses a cane in either hand (tends to switch every now and then) which is helpful. He denies falls while using an AD. He denies frequent falls but states he is much more likely to fall without AD. He fell in August 2021 while cleaning ears with a q-tip. He went to ED and was found to have ruptured his eardrum. Sánchez has a history of housing insecurity but currently lives in [place] with his 6 yo son. He has full custody. Prior Treatments and Tests Outpatient PT 4 years ago Future Testing and Treatments Planned Follow up with podiatry in ~6 months. Treatment Goals Patient/Caregiver Goals Decrease back and LE pain, decrease falls risk, improve strength to be better able to care for 6 yo son. Personal Factors Other Personal Factors That May Effect Current daily smoker, TBI, Therapy/Recovery anxiety, depression. PT-OP-C Subjective Start: 05/11/22 15:38 Freq: Status: Active Protocol: Document 07/11/22 08:47 AW (Rec: 07/11/22 10:35 AW [id number]) OP-PT Subjective Patient Comments Patient Comments Did not qualify for Silver Sneakers. Feels the bridge is causing back pain and would like an alternative. PT-OP-D Balance Start: 05/11/22 15:38 Freq: Status: Active Protocol: Document 05/23/22 10:30 AW (Rec: 05/24/22 15:12 AW [id number]) Balance Tests Single Limb Standing Single Limb- Right unable without support Single Limb- Left unable without support PT-OP-E Functional Tests Start: 05/11/22 15:38 Freq: Status: Active Protocol: Document 06/28/22 09:48 AW (Rec: 06/28/22 10:33 AW [id number]) Functional Tests 2 Minute Walk Test Distance 468.7 ft Device Used SPC Comments 1.24 m/s PT-OP-F Manual Assessment Start: 05/11/22 15:38 Freq: Status: Active Protocol: Document 05/23/22 10:30 AW (Rec: 05/23/22 17:51 AW [id number]) Manual Assessments Soft Tissue Assessment Soft Tissue Mobility Assessment Limited passive SLR bilaterally - lacking ~25 degrees to 90. Limited hip IR bilaterally with pain at end range. Limited hip ER on the right. Tender to palpation and bilateral lower lumbar paraspinals. PT-OP-G Mobility & Gait Start: 05/11/22 15:38 Freq: Status: Active Protocol: Document 05/23/22 10:30 AW (Rec: 05/23/22 17:51 AW [id number]) OP Mobility Evaluation Transfers Sit to Stand Definite use of hands but able on first attempt Functional Movements Squats Pt is able to squat low enough to safely cigar packer and picker an item from the floor but with altered mechanics OP Gait Assessment Comments Gait Comments Pt ambulates with SPC held in either hand. He tends to vault more during RLE stance but is generally steady with AD. PT-OP-H Neuro Start: 05/11/22 15:38 Freq: Status: Active Protocol: Document 05/23/22 10:30 AW (Rec: 05/23/22 17:53 AW [id number]) Sensation Evaluation Comments Summary Comments Pt has chronic neuropathy affecting light touch sensation in bilateral feet in stocking distribution. PT-OP-M Strength Start: 05/11/22 15:38 Freq: Status: Active Protocol: Document 05/23/22 10:30 AW (Rec: 05/24/22 15:02 AW [id number]) Hip Strength Hip Manual Muscle Testing bilat Flexion (L2) 4 Good Extension (S1) 3+ Fair+ Abduction 4 Good External Rotation 4+ Good+ Internal Rotation 4+ Good+ Comments Resisted R hip extension and resisted B IR provoke hip and back pain. Knee Strength Knee Manual Muscle Testing bilat Flexion (S2) 4 Good Extension (L3) 4+ Good+ Ankle/Foot Strength Ankle and Foot Manual Muscle Testing bilat Dorsiflexion (L4) 4 Good Plantarflexion (S1) 4- Good- PT-OP-Q Treatments Start: 05/11/22 15:38 Freq: Status: Active Protocol: Document 07/11/22 08:47 AW (Rec: 07/11/22 10:35 AW [id number]) Therapeutic Exercises Supine Exercises bridge Comments causes back pain; dc'ed Sitting Exercises STS Sitting Exercise Name HEP review Equipment Used green chair 18, arms across chest Reps/Minutes [address] Standing Exercises step up Standing Exercise Name step up - fwd and lateral Side bilateral Resistance 6 step Reps/Minutes x10 Comments cued weight shift over stance foot, glute drive long sitting hip flexor march Standing Exercise Name long sitting hip flexor march Side bilateral Equipment Used 2 cones Comments up and over x 2 Other Exercises sit to stand Other Exercise Name sit to stand Equipment Used green chair Therapeutic Activity Therapeutic Activity car transfers Name car transfers Reps/Minutes 8 min Comments At pt's own car. Pt approached , turned sideways, and sat without UE support. Cued leading leg lift in with concomitant trunk turn to keep spine in alignment with small movements. Similar technique to exit. Practiced picking up objects from back seat to simulate delivery. Gait Training Gait Activity trek poles Description trek poles Device Used B poles Surface carpet, tile, gravel, parking lot Treatment Focus patterning, aligment Comments Good natural OA/OL pattern with min cues. Good stability on firm and gravel surface ( behind clinic around [facility]). Self-Care/Home Management Treatment Education Patient Education Body Mechanics,Home Exercise Program Other Education Removed bridge from HEP and replaced with emphasis on sit to stand. PT-OP-T Assessment and Plan Start: 05/11/22 15:38 Freq: Status: Active Protocol: Document 07/11/22 08:47 AW (Rec: 07/11/22 10:35 AW [id number]) Physical Therapy Assessment Goals Five Impairment impairment with daily activities Senior Research Associate Goal (LTG) Pt will improve modified Oswestry score from 42 to 20 or less as a measure of improved ease with daily activities. Four Impairment gait Senior Research Associate Goal (LTG) Sánchez will walk 1500 feet with SPC on 6 Minute Walk Test for improved safety in community ambulation. LTG Duration 08/15/22 Three Impairment strength Short Term Goal (STG) Pt will complete sit to stand from standard height chair without UE support STG Duration 07/04/22 Senior Research Associate Goal (LTG) Pt will complete 5 Time Sit to Stand from standard height chair without UE support in 13 seconds or less. LTG Duration 08/15/22 Two Impairment balance Usp Goal (LTG) Pt will improve Storm Balance score to 49/56 or greater as a measure of improved balance LTG Duration 08/15/22 One Impairment lacks HEP Short Term Goal (STG) Sánchez will be instructed in HEP for lower extremity strength and balance to support therapy services provided in clinic STG Duration 07/04/22 Senior Research Associate Goal (LTG) Sánchez will be independently engaged with HEP for LE strength and balance LTG Duration 08/15/22 Assessment Summary Assessment Pt did well with trekking poles and reported decreased tension on right low back. He was better aligned with trekking poles and was steady on even and uneven surfaces. Recommend trekking poles for daily use. PT was able to observe and help pt troubleshoot car transfers today. Cued big lift of leading leg out of car with special attention to spinal neutral as pt made small movements to turn toward the exit. Physical Therapy Plan Frequency and Duration Frequency of Treatment 2x/Week Plan of Care Start Date 05/23/22 Plan of Care End Date 08/15/22 Therapeutic Interventions Therapeutic Interventions Balance Training,Gait Training ,Home Exercise Program,Manual Therapy,Neuromuscular Re- education,Self-Care/Home Management,Soft Tissue Mobilization,Taping, Therapeutic Activities, Therapeutic Exercises Modalities Cold Pack/Ice Massage,Hot Packs Next Visit Focus/Plan Next Note Type Treatment Note Next Visit Plan General LE and core strengthening. Revisit trekking poles for gait. Consider trekking poles for dynamic gait challenges.
--- NOTE | 2022-07-14 11:20 | PT.OTN ---
Addendum entered and electronically signed by Clarisa More PTA 07/14/22 11:52: Pt stated has some ankle, knee, hip measurements taken at past PT office and thinks will have a copy forwarded to us for awareness his past baseline and thinks alot tighter. Original Note: Current Diagnoses Other chronic pain (07/14/22) Low back pain, unspecified (07/14/22) Difficulty in walking, not elsewhere classified (07/14/22) Physical Therapy Treatment Note PT-OP-A Visit Information Start: 05/11/22 15:38 Freq: Status: Active Protocol: Document 07/14/22 10:32 SP (Rec: 07/14/22 11:51 SP [id number]) Out-Patient Physical Therapy Visit Information Visit Information Visit Type Treatment Note Visit Note PN with PT during 07/25 appt. Visit Start Time 10:32 Visit Stop Time 11:20 Total Visit Minutes 48 Visit Number 7 Number of RX SPECIALIST Visits 1 Evaluation Information Evaluation Date 05/23/22 PT-OP-B Current Condition Start: 05/11/22 15:38 Freq: Status: Active Protocol: Document 05/23/22 10:30 AW (Rec: 05/11/22 15:53 AW [id number]) Current Condition History of Current Condition Onset Date chronic Current Complaints back pain, bilateral leg and foot pain History of Current Condition Sánchez reports chronic back, hip, knee, and foot pain. He has history of TBI/head trauma and diabetes. He had surgery on his left foot/Achilles in 2011 to correct his arch. He was planning to have the same surgery on the right side but was unable due to insurance limitations. He wears diabetic shoes with custom inserts. He typically has his inserts updated yearly but has not had a new pair now in ~4 years. He went to PT in 2017 while living in [place] and found it helpful. PT advised him to walk with a cane due to balance concerns. He uses a cane in either hand (tends to switch every now and then) which is helpful. He denies falls while using an AD. He denies frequent falls but states he is much more likely to fall without AD. He fell in August 2021 while cleaning ears with a q-tip. He went to ED and was found to have ruptured his eardrum. Sánchez has a history of housing insecurity but currently lives in [place] with his 6 yo son. He has full custody. Prior Treatments and Tests Outpatient PT 4 years ago Future Testing and Treatments Planned Follow up with podiatry in ~6 months. Treatment Goals Patient/Caregiver Goals Decrease back and LE pain, decrease falls risk, improve strength to be better able to care for 6 yo son. Personal Factors Other Personal Factors That May Effect Current daily smoker, TBI, Therapy/Recovery anxiety, depression. PT-OP-C Subjective Start: 05/11/22 15:38 Freq: Status: Active Protocol: Document 07/14/22 10:32 SP (Rec: 07/14/22 11:51 SP [id number]) OP-PT Subjective Patient Comments Patient Comments Pt reports continues have constant back pain more in/out car but back pain affects his walking. Is currently with physican with med adjustment for diabetes currently on mephorim. Wants to focus tx if can on stretching and added supine exercise to replace bridge to help back feel better and stronger in core at home. PT-OP-D Balance Start: 05/11/22 15:38 Freq: Status: Active Protocol: Document 05/23/22 10:30 AW (Rec: 05/24/22 15:12 AW [id number]) Balance Tests Single Limb Standing Single Limb- Right unable without support Single Limb- Left unable without support PT-OP-E Functional Tests Start: 05/11/22 15:38 Freq: Status: Active Protocol: Document 06/28/22 09:48 AW (Rec: 06/28/22 10:33 AW [id number]) Functional Tests 2 Minute Walk Test Distance 468.7 ft Device Used SPC Comments 1.24 m/s PT-OP-F Manual Assessment Start: 05/11/22 15:38 Freq: Status: Active Protocol: Document 05/23/22 10:30 AW (Rec: 05/23/22 17:51 AW [id number]) Manual Assessments Soft Tissue Assessment Soft Tissue Mobility Assessment Limited passive SLR bilaterally - lacking ~25 degrees to 90. Limited hip IR bilaterally with pain at end range. Limited hip ER on the right. Tender to palpation and bilateral lower lumbar paraspinals. PT-OP-G Mobility & Gait Start: 05/11/22 15:38 Freq: Status: Active Protocol: Document 05/23/22 10:30 AW (Rec: 05/23/22 17:51 AW [id number]) OP Mobility Evaluation Transfers Sit to Stand Definite use of hands but able on first attempt Functional Movements Squats Pt is able to squat low enough to safely pickling operator an item from the floor but with altered mechanics OP Gait Assessment Comments Gait Comments Pt ambulates with SPC held in either hand. He tends to vault more during RLE stance but is generally steady with AD. PT-OP-H Neuro Start: 05/11/22 15:38 Freq: Status: Active Protocol: Document 05/23/22 10:30 AW (Rec: 05/23/22 17:53 AW [id number]) Sensation Evaluation Comments Summary Comments Pt has chronic neuropathy affecting light touch sensation in bilateral feet in stocking distribution. PT-OP-M Strength Start: 05/11/22 15:38 Freq: Status: Active Protocol: Document 05/23/22 10:30 AW (Rec: 05/24/22 15:02 AW [id number]) Hip Strength Hip Manual Muscle Testing bilat Flexion (L2) 4 Good Extension (S1) 3+ Fair+ Abduction 4 Good External Rotation 4+ Good+ Internal Rotation 4+ Good+ Comments Resisted R hip extension and resisted B IR provoke hip and back pain. Knee Strength Knee Manual Muscle Testing bilat Flexion (S2) 4 Good Extension (L3) 4+ Good+ Ankle/Foot Strength Ankle and Foot Manual Muscle Testing bilat Dorsiflexion (L4) 4 Good Plantarflexion (S1) 4- Good- PT-OP-Q Treatments Start: 05/11/22 15:38 Freq: Status: Active Protocol: Document 07/14/22 10:32 SP (Rec: 07/14/22 11:51 SP [id number]) Therapeutic Exercises Supine Exercises core march Supine Exercise Name sequencial double leg august- added to HEP Side bilateral Equipment Used painfree good core response Reps/Minutes 2x5 reps Comments cued ab bracing, neutral ankle , 90/90 LE lift sequencial alternate LEs- gd Sidelying Exercises hip abd Sidelying Exercise Name added to HEP- best BLE straight Side bilateral Equipment Used LEs ext best Reps/Minutes x10 Comments cued stacken trunk alignment, cued slow TA lift/lower, try not wobble- Sitting Exercises piriformis stretch Sitting Exercise Name Reviewed HEP Side bilateral Reps/Minutes 30 x3 Comments cued use UE support LE over opp LE STS Sitting Exercise Name HEP review Equipment Used mesh chair 18, arms across chest Reps/Minutes 15 reps Comments good cued glute drive, cued TA awareness HS stretch Sitting Exercise Name HS stretch HEP review Side bilateral Reps/Minutes 30 SH x 4 Comments cued hip hinge and PF felt more HS than calf recruiment stretch Standing Exercises calf stretch Standing Exercise Name added to HEP- give HO next Equipment Used rolled towel under forfoot vs off step Reps/Minutes 60 each LE each position Comments good feedback stretch/ trunk tall alignment,slow no bouncing Other Exercises sit to stand Other Exercise Name sit to stand Equipment Used mesh chair Reps/Minutes 3x10 Self-Care/Home Management Treatment Education Patient Education Body Mechanics,Home Exercise Program,Posture,Safety Other Education discussed pillows use side sleep support. Added calf stretch (forgot HO) , sequencial TA march, side TA Hip abd AROM. Good feedback core/ hip abd effort. Pt brought in mechanical massager for feedback proper use/safety. Discussed attachments how/ where use, not over bony areas just muscle and family member can help posterior back if needed mindful good massage setting understood. Pt stated will be getting theracane. Pt also questioned pool exercises does and if ok, waterwalking, flutter kick. DIscussed can get webbed gloved, foam belt and added noodle for support trunk, can discuss further for more detail on form to allow safety at pool. PT-OP-T Assessment and Plan Start: 05/11/22 15:38 Freq: Status: Active Protocol: Document 07/14/22 10:32 SP (Rec: 07/14/22 11:51 SP [id number]) Physical Therapy Assessment Goals Five Impairment impairment with daily activities [facility]cf Goal (LTG) Pt will improve modified Oswestry score from 42 to 20 or less as a measure of improved ease with daily activities. Four Impairment gait Chcf Goal (LTG) Sánchez will walk 1500 feet with SPC on 6 Minute Walk Test for improved safety in community ambulation. LTG Duration 08/15/22 Three Impairment strength Short Term Goal (STG) Pt will complete sit to stand from standard height chair without UE support STG Duration 07/04/22 Chcf Goal (LTG) Pt will complete 5 Time Sit to Stand from standard height chair without UE support in 13 seconds or less. LTG Duration 08/15/22 Two Impairment balance Jet Aircraft Servicer Goal (LTG) Pt will improve Storm Balance score to 49/56 or greater as a measure of improved balance LTG Duration 08/15/22 One Impairment lacks HEP Short Term Goal (STG) Sánchez will be instructed in HEP for lower extremity strength and balance to support therapy services provided in clinic STG Duration 07/04/22 Chcf Goal (LTG) Sánchez will be independently engaged with HEP for LE strength and balance LTG Duration 08/15/22 Assessment Summary Assessment Pt good core march and hip abd /TA effort during ther ex. Pt reported tight calf during seated HS stretch improved with PF ROM, issued calf stretch (forgot HO, give next tx). Progress funcitional strengthening/ balance / gait progression next tx. Physical Therapy Plan Frequency and Duration Frequency of Treatment 2x/Week Plan of Care Start Date 05/23/22 Plan of Care End Date 08/15/22 Therapeutic Interventions Therapeutic Interventions Balance Training,Gait Training ,Home Exercise Program,Manual Therapy,Neuromuscular Re- education,Self-Care/Home Management,Soft Tissue Mobilization,Taping, Therapeutic Activities, Therapeutic Exercises Modalities Cold Pack/Ice Massage,Hot Packs Next Visit Focus/Plan Next Note Type Treatment Note Next Visit Plan Recheck supine/side HEP. POC: Revisit trekking poles for gait, balance challenges. Check goals soon for PN 07/25. Check appt with newly estabilished PT after 08/11- update POC? Future discuss pool application exercise with son for back health.
--- NOTE | 2022-07-18 10:48 | PT.OTN ---
Current Diagnoses Other chronic pain (07/18/22) Low back pain, unspecified (07/18/22) Difficulty in walking, not elsewhere classified (07/18/22) Physical Therapy Treatment Note PT-OP-A Visit Information Start: 05/11/22 15:38 Freq: Status: Active Protocol: Document 07/18/22 09:02 AW (Rec: 07/18/22 10:48 AW [id number]) Out-Patient Physical Therapy Visit Information Visit Information Visit Type Treatment Note Visit Note PN with PT during 07/25 appt. Visit Start Time 09:45 Visit Stop Time 10:30 Total Visit Minutes 45 Visit Number 8 Number of SCREWMAKER AUTOMATIC Visits 0 Evaluation Information Evaluation Date 05/23/22 PT-OP-B Current Condition Start: 05/11/22 15:38 Freq: Status: Active Protocol: Document 05/23/22 10:30 AW (Rec: 05/11/22 15:53 AW [id number]) Current Condition History of Current Condition Onset Date chronic Current Complaints back pain, bilateral leg and foot pain History of Current Condition Sánchez reports chronic back, hip, knee, and foot pain. He has history of TBI/head trauma and diabetes. He had surgery on his left foot/Achilles in 2011 to correct his arch. He was planning to have the same surgery on the right side but was unable due to insurance limitations. He wears diabetic shoes with custom inserts. He typically has his inserts updated yearly but has not had a new pair now in ~4 years. He went to PT in 2017 while living in [place] and found it helpful. PT advised him to walk with a cane due to balance concerns. He uses a cane in either hand (tends to switch every now and then) which is helpful. He denies falls while using an AD. He denies frequent falls but states he is much more likely to fall without AD. He fell in August 2021 while cleaning ears with a q-tip. He went to ED and was found to have ruptured his eardrum. Sánchez has a history of housing insecurity but currently lives in [place] with his 6 yo son. He has full custody. Prior Treatments and Tests Outpatient PT 4 years ago Future Testing and Treatments Planned Follow up with podiatry in ~6 months. Treatment Goals Patient/Caregiver Goals Decrease back and LE pain, decrease falls risk, improve strength to be better able to care for 6 yo son. Personal Factors Other Personal Factors That May Effect Current daily smoker, TBI, Therapy/Recovery anxiety, depression. PT-OP-C Subjective Start: 05/11/22 15:38 Freq: Status: Active Protocol: Document 07/18/22 09:02 AW (Rec: 07/18/22 10:48 AW [id number]) OP-PT Subjective Patient Comments Patient Comments Still having a lot of back pain. Patient Reported Progress Same PT-OP-D Balance Start: 05/11/22 15:38 Freq: Status: Active Protocol: Document 05/23/22 10:30 AW (Rec: 05/24/22 15:12 AW [id number]) Balance Tests Single Limb Standing Single Limb- Right unable without support Single Limb- Left unable without support PT-OP-E Functional Tests Start: 05/11/22 15:38 Freq: Status: Active Protocol: Document 06/28/22 09:48 AW (Rec: 06/28/22 10:33 AW [id number]) Functional Tests 2 Minute Walk Test Distance 468.7 ft Device Used SPC Comments 1.24 m/s PT-OP-F Manual Assessment Start: 05/11/22 15:38 Freq: Status: Active Protocol: Document 05/23/22 10:30 AW (Rec: 05/23/22 17:51 AW [id number]) Manual Assessments Soft Tissue Assessment Soft Tissue Mobility Assessment Limited passive SLR bilaterally - lacking ~25 degrees to 90. Limited hip IR bilaterally with pain at end range. Limited hip ER on the right. Tender to palpation and bilateral lower lumbar paraspinals. PT-OP-G Mobility & Gait Start: 05/11/22 15:38 Freq: Status: Active Protocol: Document 05/23/22 10:30 AW (Rec: 05/23/22 17:51 AW [id number]) OP Mobility Evaluation Transfers Sit to Stand Definite use of hands but able on first attempt Functional Movements Squats Pt is able to squat low enough to safely tile picker an item from the floor but with altered mechanics OP Gait Assessment Comments Gait Comments Pt ambulates with SPC held in either hand. He tends to vault more during RLE stance but is generally steady with AD. PT-OP-H Neuro Start: 05/11/22 15:38 Freq: Status: Active Protocol: Document 05/23/22 10:30 AW (Rec: 05/23/22 17:53 AW [id number]) Sensation Evaluation Comments Summary Comments Pt has chronic neuropathy affecting light touch sensation in bilateral feet in stocking distribution. PT-OP-M Strength Start: 05/11/22 15:38 Freq: Status: Active Protocol: Document 05/23/22 10:30 AW (Rec: 05/24/22 15:02 AW [id number]) Hip Strength Hip Manual Muscle Testing bilat Flexion (L2) 4 Good Extension (S1) 3+ Fair+ Abduction 4 Good External Rotation 4+ Good+ Internal Rotation 4+ Good+ Comments Resisted R hip extension and resisted B IR provoke hip and back pain. Knee Strength Knee Manual Muscle Testing bilat Flexion (S2) 4 Good Extension (L3) 4+ Good+ Ankle/Foot Strength Ankle and Foot Manual Muscle Testing bilat Dorsiflexion (L4) 4 Good Plantarflexion (S1) 4- Good- PT-OP-Q Treatments Start: 05/11/22 15:38 Freq: Status: Active Protocol: Document 07/18/22 09:02 AW (Rec: 07/18/22 10:48 AW [id number]) Therapeutic Exercises Supine Exercises core march Supine Exercise Name sequencial double leg august- added to HEP Side bilateral Equipment Used painfree good core response Reps/Minutes 2x5 reps Comments added elevated heel slide SKTC Supine Exercise Name SKTC Side bilateral Reps/Minutes 10SH x 10 Comments HEP piriformis stretch Supine Exercise Name piriformis stretch - opp foot planted Side bilateral Reps/Minutes 30 SH x 3 Comments HEP Sidelying Exercises hip abd Sidelying Exercise Name added to HEP- best BLE straight Side bilateral Equipment Used LEs ext best Reps/Minutes x10 Comments cued stacken trunk alignment, cued slow TA lift/lower, try not wobble- Sitting Exercises STS Sitting Exercise Name HEP review Equipment Used black tx table in lowest position Reps/Minutes 15 reps Comments good cued glute drive, cued TA awareness Standing Exercises calf stretch Standing Exercise Name gave handout Equipment Used rolled towel under forfoot vs off step Reps/Minutes 60 each LE each position Comments best feedback with towel roll Other Exercises quadruped Other Exercise Name neutral<>flexed; SB; push back into child pose Side bilateral Comments no pain Therapeutic Activity Therapeutic Activity log roll, get up from couch Name log roll, get up from couch Comments Spent extra time working on log roll and pushing up from the couch (both arms on cushion instead of one arm on couch arm) to reduce lumbar rotation during daily activities. PT-OP-T Assessment and Plan Start: 05/11/22 15:38 Freq: Status: Active Protocol: Document 07/18/22 09:02 AW (Rec: 07/18/22 10:48 AW [id number]) Physical Therapy Assessment Goals Five Impairment impairment with daily activities Retirement Goal (LTG) Pt will improve modified Oswestry score from 42 to 20 or less as a measure of improved ease with daily activities. Four Impairment gait Retirement Goal (LTG) Sánchez will walk 1500 feet with SPC on 6 Minute Walk Test for improved safety in community ambulation. LTG Duration 08/15/22 Three Impairment strength Short Term Goal (STG) Pt will complete sit to stand from standard height chair without UE support STG Duration 07/04/22 Sap Business Objects Consultant Goal (LTG) Pt will complete 5 Time Sit to Stand from standard height chair without UE support in 13 seconds or less. LTG Duration 08/15/22 Two Impairment balance Retirement Goal (LTG) Pt will improve Storm Balance score to 49/56 or greater as a measure of improved balance LTG Duration 08/15/22 One Impairment lacks HEP Short Term Goal (STG) Sánchez will be instructed in HEP for lower extremity strength and balance to support therapy services provided in clinic STG Duration 07/04/22 Sap Business Objects Consultant Goal (LTG) Sánchez will be independently engaged with HEP for LE strength and balance LTG Duration 08/15/22 Assessment Summary Assessment Reviewed supine hip stretches and core stabilization today. Pt was able to complete floating heel slide without back pain. Spent extra time today practicing log roll and getting up from the couch. Noted that pt rotated right when rolling to left side and pt complained of pain when pushing up with one arm from couch. Educated pt to reduce lumbar rotation and to increase awareness of lower abdominal bracing during these movements. Physical Therapy Plan Frequency and Duration Frequency of Treatment 2x/Week Plan of Care Start Date 05/23/22 Plan of Care End Date 08/15/22 Therapeutic Interventions Therapeutic Interventions Balance Training,Gait Training ,Home Exercise Program,Manual Therapy,Neuromuscular Re- education,Self-Care/Home Management,Soft Tissue Mobilization,Taping, Therapeutic Activities, Therapeutic Exercises Modalities Cold Pack/Ice Massage,Hot Packs Next Visit Focus/Plan Next Note Type Treatment Note Next Visit Plan Recheck log roll and up from couch activity. POC: Revisit trekking poles for gait, balance challenges. Check goals soon for PN 07/25. Check appt with newly estabilished PT after 08/11- update POC? Future discuss pool application exercise with son for back health.
--- NOTE | 2022-07-21 11:12 | PT.OTN ---
Current Diagnoses Other chronic pain (07/21/22) Low back pain, unspecified (07/21/22) Difficulty in walking, not elsewhere classified (07/21/22) Physical Therapy Treatment Note PT-OP-A Visit Information Start: 05/11/22 15:38 Freq: Status: Active Protocol: Document 07/21/22 10:36 SP (Rec: 07/21/22 11:32 SP [id number]) Out-Patient Physical Therapy Visit Information Visit Information Visit Type Treatment Note Visit Note PN with PT during 07/25 appt. ( 10th visit) *Updated POC on 08/17 appt with Dina PT, expires 08/15/22. Visit Start Time 10:36 Visit Stop Time 11:12 Total Visit Minutes 36 Visit Number 9 Number of MORTGAGE ACCOUNTING CLERK Visits 1 Evaluation Information Evaluation Date 05/23/22 PT-OP-B Current Condition Start: 05/11/22 15:38 Freq: Status: Active Protocol: Document 05/23/22 10:30 AW (Rec: 05/11/22 15:53 AW [id number]) Current Condition History of Current Condition Onset Date chronic Current Complaints back pain, bilateral leg and foot pain History of Current Condition Sánchez reports chronic back, hip, knee, and foot pain. He has history of TBI/head trauma and diabetes. He had surgery on his left foot/Achilles in 2011 to correct his arch. He was planning to have the same surgery on the right side but was unable due to insurance limitations. He wears diabetic shoes with custom inserts. He typically has his inserts updated yearly but has not had a new pair now in ~4 years. He went to PT in 2017 while living in [place] and found it helpful. PT advised him to walk with a cane due to balance concerns. He uses a cane in either hand (tends to switch every now and then) which is helpful. He denies falls while using an AD. He denies frequent falls but states he is much more likely to fall without AD. He fell in August 2021 while cleaning ears with a q-tip. He went to ED and was found to have ruptured his eardrum. Sánchez has a history of housing insecurity but currently lives in [place] with his 6 yo son. He has full custody. Prior Treatments and Tests Outpatient PT 4 years ago Future Testing and Treatments Planned Follow up with podiatry in ~6 months. Treatment Goals Patient/Caregiver Goals Decrease back and LE pain, decrease falls risk, improve strength to be better able to care for 6 yo son. Personal Factors Other Personal Factors That May Effect Current daily smoker, TBI, Therapy/Recovery anxiety, depression. PT-OP-C Subjective Start: 05/11/22 15:38 Freq: Status: Active Protocol: Document 07/21/22 10:36 SP (Rec: 07/21/22 11:32 SP [id number]) OP-PT Subjective Patient Comments Patient Comments Pt reports the modifications LR sit<>supine and use BUE to get off love seat STS and lift car seat little highter for now to get out and lower to allow sit back down when returns back feels better. He requested some balance activities to do at home. Pt reports needs leave early due to having picker packer grandkids, early release today. Patient Reported Progress Improving PT-OP-D Balance Start: 05/11/22 15:38 Freq: Status: Active Protocol: Document 05/23/22 10:30 AW (Rec: 05/24/22 15:12 AW [id number]) Balance Tests Single Limb Standing Single Limb- Right unable without support Single Limb- Left unable without support PT-OP-E Functional Tests Start: 05/11/22 15:38 Freq: Status: Active Protocol: Document 06/28/22 09:48 AW (Rec: 06/28/22 10:33 AW [id number]) Functional Tests 2 Minute Walk Test Distance 468.7 ft Device Used SPC Comments 1.24 m/s PT-OP-F Manual Assessment Start: 05/11/22 15:38 Freq: Status: Active Protocol: Document 05/23/22 10:30 AW (Rec: 05/23/22 17:51 AW [id number]) Manual Assessments Soft Tissue Assessment Soft Tissue Mobility Assessment Limited passive SLR bilaterally - lacking ~25 degrees to 90. Limited hip IR bilaterally with pain at end range. Limited hip ER on the right. Tender to palpation and bilateral lower lumbar paraspinals. PT-OP-G Mobility & Gait Start: 05/11/22 15:38 Freq: Status: Active Protocol: Document 05/23/22 10:30 AW (Rec: 05/23/22 17:51 AW [id number]) OP Mobility Evaluation Transfers Sit to Stand Definite use of hands but able on first attempt Functional Movements Squats Pt is able to squat low enough to safely picker packer an item from the floor but with altered mechanics OP Gait Assessment Comments Gait Comments Pt ambulates with SPC held in either hand. He tends to vault more during RLE stance but is generally steady with AD. PT-OP-H Neuro Start: 05/11/22 15:38 Freq: Status: Active Protocol: Document 05/23/22 10:30 AW (Rec: 05/23/22 17:53 AW [id number]) Sensation Evaluation Comments Summary Comments Pt has chronic neuropathy affecting light touch sensation in bilateral feet in stocking distribution. PT-OP-M Strength Start: 05/11/22 15:38 Freq: Status: Active Protocol: Document 05/23/22 10:30 AW (Rec: 05/24/22 15:02 AW [id number]) Hip Strength Hip Manual Muscle Testing bilat Flexion (L2) 4 Good Extension (S1) 3+ Fair+ Abduction 4 Good External Rotation 4+ Good+ Internal Rotation 4+ Good+ Comments Resisted R hip extension and resisted B IR provoke hip and back pain. Knee Strength Knee Manual Muscle Testing bilat Flexion (S2) 4 Good Extension (L3) 4+ Good+ Ankle/Foot Strength Ankle and Foot Manual Muscle Testing bilat Dorsiflexion (L4) 4 Good Plantarflexion (S1) 4- Good- PT-OP-Q Treatments Start: 05/11/22 15:38 Freq: Status: Active Protocol: Document 07/21/22 10:36 SP (Rec: 07/21/22 11:32 SP [id number]) Gym Equipment Shuttle Recovery unilateral squat Resistance 75# (2 new bands) Shuttle Recovery Platform Stable Reps/Time 2x10 alternating bilateral squat Details cued slow controlled pacing, soft knee top Resistance 125# (3 new bands) Shuttle Recovery Platform Stable Reps/Time x20 total Shuttle Balance red chains Details WBOS, NBOS, Stagger Reps/Duration 10 min Comments 1. wt shift 2. head turns cued posturing, glut, hip abd, core fac, little hip hinge upper body over pelvis underneath- more challenge RLE back (weaker LE) stagger but able to stabilize wt shift = BLE for HTs. *CG- Min A Therapeutic Exercises Sitting Exercises STS Sitting Exercise Name HEP review- better control last 1 sit chair Equipment Used mesh chair- arms across chest Reps/Minutes 20 reps Comments cued scap retracted/depressed, hip hinge PPT/glut/ TA contr descend all way Neuro Re-Education Treatment Balance Activities corner balance Details NBOS, semitandem, tandem Surface carpet Equipment corner back, chair front Reps/Duration 5 min Comments 1. HTs 2. EC NBOS, semitandem EC up to 30 stagger brief discussed 3 sec hold end tx. Cued PT-OP-T Assessment and Plan Start: 05/11/22 15:38 Freq: Status: Active Protocol: Document 07/21/22 10:36 SP (Rec: 07/21/22 11:32 SP [id number]) Physical Therapy Assessment Goals Five Impairment impairment with daily activities Vault Clerk Goal (LTG) Pt will improve modified Oswestry score from 42 to 20 or less as a measure of improved ease with daily activities. Four Impairment gait Vault Clerk Goal (LTG) Sánchez will walk 1500 feet with SPC on 6 Minute Walk Test for improved safety in community ambulation. LTG Duration 08/15/22 Three Impairment strength Short Term Goal (STG) Pt will complete sit to stand from standard height chair without UE support STG Duration 07/04/22 Prison Goal (LTG) Pt will complete 5 Time Sit to Stand from standard height chair without UE support in 13 seconds or less. LTG Duration 08/15/22 Two Impairment balance Vault Clerk Goal (LTG) Pt will improve Storm Balance score to 49/56 or greater as a measure of improved balance LTG Duration 08/15/22 One Impairment lacks HEP Short Term Goal (STG) Sánchez will be instructed in HEP for lower extremity strength and balance to support therapy services provided in clinic STG Duration 07/04/22 Prison Goal (LTG) Sánchez will be independently engaged with HEP for LE strength and balance LTG Duration 08/15/22 Assessment Summary Assessment Pt improved core/ trunk alignment over pelvis/feet allowed increase stability on shuttle balance and corner for home this tx with no reports back recruitment due to core/ hip abd fac. Pt declined HO ( provide future tx if wants). Physical Therapy Plan Frequency and Duration Frequency of Treatment 2x/Week Plan of Care Start Date 05/23/22 Plan of Care End Date 08/15/22 Therapeutic Interventions Therapeutic Interventions Balance Training,Gait Training ,Home Exercise Program,Manual Therapy,Neuromuscular Re- education,Self-Care/Home Management,Soft Tissue Mobilization,Taping, Therapeutic Activities, Therapeutic Exercises Modalities Cold Pack/Ice Massage,Hot Packs Next Visit Focus/Plan Next Note Type Treatment Note Next Visit Plan Recheck corner balance added last tx, provide HO if wants, declined last tx. Updated goal testing. Recheck log roll and up from couch activity if needed view. POC: Revisit trekking poles for gait, balance challenges. Future discuss pool application exercise with son for back health.
--- NOTE | 2022-08-01 11:28 | PT-OP ANOTE ---
Pt cancelled appt, sick.
--- NOTE | 2022-08-04 10:30 | PT.OTN ---
Current Diagnoses Other chronic pain (08/04/22) Low back pain, unspecified (08/04/22) Difficulty in walking, not elsewhere classified (08/04/22) Physical Therapy Treatment Note PT-OP-A Visit Information Start: 05/11/22 15:38 Freq: Status: Active Protocol: Document 08/04/22 09:48 SP (Rec: 08/04/22 10:32 SP [id number]) Out-Patient Physical Therapy Visit Information Visit Information Visit Type Treatment Note Visit Note PN with PT during 07/25 appt. ( 10th visit) *Updated POC on 08/17 appt with Dina PT, expires 08/15/22. Visit Start Time 09:48 Visit Stop Time 10:30 Total Visit Minutes 42 Visit Number 10 Number of CONFECTIONERY LABORATORY MANAGER Visits 2 Evaluation Information Evaluation Date 05/23/22 PT-OP-B Current Condition Start: 05/11/22 15:38 Freq: Status: Active Protocol: Document 05/23/22 10:30 AW (Rec: 05/11/22 15:53 AW [id number]) Current Condition History of Current Condition Onset Date chronic Current Complaints back pain, bilateral leg and foot pain History of Current Condition Sánchez reports chronic back, hip, knee, and foot pain. He has history of TBI/head trauma and diabetes. He had surgery on his left foot/Achilles in 2011 to correct his arch. He was planning to have the same surgery on the right side but was unable due to insurance limitations. He wears diabetic shoes with custom inserts. He typically has his inserts updated yearly but has not had a new pair now in ~4 years. He went to PT in 2017 while living in [place] and found it helpful. PT advised him to walk with a cane due to balance concerns. He uses a cane in either hand (tends to switch every now and then) which is helpful. He denies falls while using an AD. He denies frequent falls but states he is much more likely to fall without AD. He fell in August 2021 while cleaning ears with a q-tip. He went to ED and was found to have ruptured his eardrum. Sánchez has a history of housing insecurity but currently lives in [place] with his 6 yo son. He has full custody. Prior Treatments and Tests Outpatient PT 4 years ago Future Testing and Treatments Planned Follow up with podiatry in ~6 months. Treatment Goals Patient/Caregiver Goals Decrease back and LE pain, decrease falls risk, improve strength to be better able to care for 6 yo son. Personal Factors Other Personal Factors That May Effect Current daily smoker, TBI, Therapy/Recovery anxiety, depression. PT-OP-C Subjective Start: 05/11/22 15:38 Freq: Status: Active Protocol: Document 08/04/22 09:48 SP (Rec: 08/04/22 10:32 SP [id number]) OP-PT Subjective Patient Comments Patient Comments Pt reports reports R LB and R hip dull/ache to sharp pain when doing something wrong ( getting out car wrong way/ not fully seated back in chair/ feet dangling vs flat on floor / better correct sit>stand use BUEs at side not both off to one side). Pt report back/hip pain less/none with proper form sit<>stand, in/out car. Has stand for bike to allow use home indoors. Uses trek poles for support needed outside gait, getting new set soon, borrowed diddnt' come with rubber tip. Uses smaller bags and more trips garbage removal better on back. Get winded between flights (7-10 stairs per set) of stairs needs stop get breath. Patient Questionnaires Oswestry Low Back Index Oswestry Score 21 Oswestry Impairment 20 to 39% Impaired (Score 20- 39) PT-OP-D Balance Start: 05/11/22 15:38 Freq: Status: Active Protocol: Document 08/04/22 09:48 SP (Rec: 08/04/22 10:32 SP [id number]) Zaragoza Balance Assessment Total Score Zaragoza Impairment Rating 1 to 19% Impaired (Score 45-55 ) PT-OP-E Functional Tests Start: 05/11/22 15:38 Freq: Status: Active Protocol: Document 08/04/22 09:48 SP (Rec: 08/04/22 10:32 SP [id number]) Functional Tests 6 Minute Walk Test Distance 1230 Device Used none Comments cued TA needed for LB support Five Times Sit to Stand Test Score 20 sec, 19 sec Comments good form, cued increase pace if can (arms across chest) PT-OP-F Manual Assessment Start: 05/11/22 15:38 Freq: Status: Active Protocol: Document 05/23/22 10:30 AW (Rec: 05/23/22 17:51 AW [id number]) Manual Assessments Soft Tissue Assessment Soft Tissue Mobility Assessment Limited passive SLR bilaterally - lacking ~25 degrees to 90. Limited hip IR bilaterally with pain at end range. Limited hip ER on the right. Tender to palpation and bilateral lower lumbar paraspinals. PT-OP-G Mobility & Gait Start: 05/11/22 15:38 Freq: Status: Active Protocol: Document 05/23/22 10:30 AW (Rec: 05/23/22 17:51 AW [id number]) OP Mobility Evaluation Transfers Sit to Stand Definite use of hands but able on first attempt Functional Movements Squats Pt is able to squat low enough to safely olive picker an item from the floor but with altered mechanics OP Gait Assessment Comments Gait Comments Pt ambulates with SPC held in either hand. He tends to vault more during RLE stance but is generally steady with AD. PT-OP-H Neuro Start: 05/11/22 15:38 Freq: Status: Active Protocol: Document 05/23/22 10:30 AW (Rec: 05/23/22 17:53 AW [id number]) Sensation Evaluation Comments Summary Comments Pt has chronic neuropathy affecting light touch sensation in bilateral feet in stocking distribution. PT-OP-M Strength Start: 05/11/22 15:38 Freq: Status: Active Protocol: Document 05/23/22 10:30 AW (Rec: 05/24/22 15:02 AW [id number]) Hip Strength Hip Manual Muscle Testing bilat Flexion (L2) 4 Good Extension (S1) 3+ Fair+ Abduction 4 Good External Rotation 4+ Good+ Internal Rotation 4+ Good+ Comments Resisted R hip extension and resisted B IR provoke hip and back pain. Knee Strength Knee Manual Muscle Testing bilat Flexion (S2) 4 Good Extension (L3) 4+ Good+ Ankle/Foot Strength Ankle and Foot Manual Muscle Testing bilat Dorsiflexion (L4) 4 Good Plantarflexion (S1) 4- Good- PT-OP-Q Treatments Start: 05/11/22 15:38 Freq: Status: Active Protocol: Document 08/04/22 09:48 SP (Rec: 08/04/22 10:32 SP [id number]) Therapeutic Exercises Sitting Exercises STS Sitting Exercise Name HEP review- better control last 1 sit chair Equipment Used mesh chair- arms across chest Reps/Minutes 5xSTS goal assessment: 20sec, 19sec Comments slower pacing but good form no UE support Gait Training Gait Activity 6MWT Device Used 0 Level of Assistance Mod I Surface tile/carpet Distance/Duration 1230ft Treatment Focus assess endurance goal Comments cued TA if needed for R LB support, R hip- no pain during gait. Neuro Re-Education Treatment Balance Activities ZARAGOZA Details 54/56 Comments unable complete SLS on RLE >3 sec PT-OP-T Assessment and Plan Start: 05/11/22 15:38 Freq: Status: Active Protocol: Document 08/04/22 09:48 SP (Rec: 08/04/22 10:32 SP [id number]) Physical Therapy Assessment Goals Five Impairment impairment with daily activities Correction Goal (LTG) Pt will improve modified Oswestry score from 42 to 20 or less as a measure of improved ease with daily activities. 08/04/22: progressing: Score 21 or 42% or 20 to 39% Impaired (Score 20-39) LTG Duration progressing 08/04/22 Four Impairment gait Capper Machine Operator Goal (LTG) Sánchez will walk 1500 feet with SPC on 6 Minute Walk Test for improved safety in community ambulation. 08/04/22: progressing 1230 ft no AD in 6 min LTG Duration 08/15/22 progressing 08/04/22 Three Impairment strength Short Term Goal (STG) Pt will complete sit to stand from standard height chair without UE support 08/04/22 GOAL met: 18 chair no UE support STG Duration 07/04/22 08/04/22 GOAL MET Correction Goal (LTG) Pt will complete 5 Time Sit to Stand from standard height chair without UE support in 13 seconds or less. 08/04/22: progressing: no UE support 18 chair 20sec, 19sec today LTG Duration 08/15/22 progressin08/04/22 Two Impairment balance Correction Goal (LTG) Pt will improve Zaragoza Balance score to 49/56 or greater as a measure of improved balance 08/04/22: GOAL MET: 54/56, unable SLS on RLE longer than 3 sec. LTG Duration 08/15/22 GOAL MET 08/04/22 One Impairment lacks HEP Short Term Goal (STG) Sánchez will be instructed in HEP for lower extremity strength and balance to support therapy services provided in clinic STG Duration 07/04/22 Capper Machine Operator Goal (LTG) Sánchez will be independently engaged with HEP for LE strength and balance LTG Duration 08/15/22 Progress Towards Goals Progress Towards Goals Progressing Toward Goals Progress Comments PRogressing goal #5, #4, #3 Met Goal #2 Assessment Summary Assessment Pt making gains in strength, notices decreased endurance on stairs, improvements in LB and hip pain with better mechanics but still experiencing dull achy back and hip discomfort that affects his stability and endurance gait. Uses trek poles for little support stability out on level trail walking trail. Physical Therapy Plan Frequency and Duration Frequency of Treatment 2x/Week Plan of Care Start Date 05/23/22 Plan of Care End Date 08/15/22 Therapeutic Interventions Therapeutic Interventions Balance Training,Gait Training ,Home Exercise Program,Manual Therapy,Neuromuscular Re- education,Self-Care/Home Management,Soft Tissue Mobilization,Taping, Therapeutic Activities, Therapeutic Exercises Modalities Cold Pack/Ice Massage,Hot Packs Next Visit Focus/Plan Next Note Type Treatment Note Next Visit Plan PT to complete PN and update POC. Recheck corner balance, provide HO if wants. Recheck log roll and up from couch activity if needed view. POC: Revisit trekking poles for gait, balance challenges. Future discuss pool application exercise with son for back health.
--- NOTE | 2022-08-08 10:30 | PT.OTN ---
Current Diagnoses Other chronic pain (08/08/22) Low back pain, unspecified (08/08/22) Difficulty in walking, not elsewhere classified (08/08/22) Physical Therapy Treatment Note PT-OP-A Visit Information Start: 05/11/22 15:38 Freq: Status: Active Protocol: Document 08/08/22 09:48 SP (Rec: 08/08/22 10:33 SP [id number]) Out-Patient Physical Therapy Visit Information Visit Information Visit Type Treatment Note Visit Note 1 more SUPPORT COORDINATOR appt before pt scheduled follow up with PT, need updated POC on 08/17 appt with Dina PT, expires . Visit Start Time 09:48 Visit Stop Time 10:30 Total Visit Minutes 42 Visit Number 11 Number of SUPPORT COORDINATOR Visits 3 Evaluation Information Evaluation Date 05/23/22 PT-OP-B Current Condition Start: 05/11/22 15:38 Freq: Status: Active Protocol: Document 05/23/22 10:30 AW (Rec: 05/11/22 15:53 AW [id number]) Current Condition History of Current Condition Onset Date chronic Current Complaints back pain, bilateral leg and foot pain History of Current Condition Sánchez reports chronic back, hip, knee, and foot pain. He has history of TBI/head trauma and diabetes. He had surgery on his left foot/Achilles in 2011 to correct his arch. He was planning to have the same surgery on the right side but was unable due to insurance limitations. He wears diabetic shoes with custom inserts. He typically has his inserts updated yearly but has not had a new pair now in ~4 years. He went to PT in 2017 while living in [place] and found it helpful. PT advised him to walk with a cane due to balance concerns. He uses a cane in either hand (tends to switch every now and then) which is helpful. He denies falls while using an AD. He denies frequent falls but states he is much more likely to fall without AD. He fell in August 2021 while cleaning ears with a q-tip. He went to ED and was found to have ruptured his eardrum. Sánchez has a history of housing insecurity but currently lives in [place] with his 6 yo son. He has full custody. Prior Treatments and Tests Outpatient PT 4 years ago Future Testing and Treatments Planned Follow up with podiatry in ~6 months. Treatment Goals Patient/Caregiver Goals Decrease back and LE pain, decrease falls risk, improve strength to be better able to care for 6 yo son. Personal Factors Other Personal Factors That May Effect Current daily smoker, TBI, Therapy/Recovery anxiety, depression. PT-OP-C Subjective Start: 05/11/22 15:38 Freq: Status: Active Protocol: Document 08/08/22 09:48 SP (Rec: 08/08/22 10:33 SP [id number]) OP-PT Subjective Patient Comments Patient Comments Pt reported incorporated and single leg LTR for back stretch on yoga mat. PT reports limited R leg over L tends to roll and L ribcage discomfort. Pt states likes using automatic grinding machine operator wt diabetic shoes and less stress on back, 12W- 13. Pt reports ableto walk some distance on paved path without trek pole, finding more confidance distance with not UE support but bring trek pole for safety . PT-OP-D Balance Start: 05/11/22 15:38 Freq: Status: Active Protocol: Document 08/04/22 09:48 SP (Rec: 08/04/22 10:32 SP [id number]) Storm Balance Assessment Total Score Storm Impairment Rating 1 to 19% Impaired (Score 45-55 ) PT-OP-E Functional Tests Start: 05/11/22 15:38 Freq: Status: Active Protocol: Document 08/04/22 09:48 SP (Rec: 08/04/22 10:32 SP [id number]) Functional Tests 6 Minute Walk Test Distance 1230 Device Used none Comments cued TA needed for LB support Five Times Sit to Stand Test Score 20 sec, 19 sec Comments good form, cued increase pace if can (arms across chest) PT-OP-F Manual Assessment Start: 05/11/22 15:38 Freq: Status: Active Protocol: Document 05/23/22 10:30 AW (Rec: 05/23/22 17:51 AW [id number]) Manual Assessments Soft Tissue Assessment Soft Tissue Mobility Assessment Limited passive SLR bilaterally - lacking ~25 degrees to 90. Limited hip IR bilaterally with pain at end range. Limited hip ER on the right. Tender to palpation and bilateral lower lumbar paraspinals. PT-OP-G Mobility & Gait Start: 05/11/22 15:38 Freq: Status: Active Protocol: Document 05/23/22 10:30 AW (Rec: 05/23/22 17:51 AW [id number]) OP Mobility Evaluation Transfers Sit to Stand Definite use of hands but able on first attempt Functional Movements Squats Pt is able to squat low enough to safely pear picker an item from the floor but with altered mechanics OP Gait Assessment Comments Gait Comments Pt ambulates with SPC held in either hand. He tends to vault more during RLE stance but is generally steady with AD. PT-OP-H Neuro Start: 05/11/22 15:38 Freq: Status: Active Protocol: Document 05/23/22 10:30 AW (Rec: 05/23/22 17:53 AW [id number]) Sensation Evaluation Comments Summary Comments Pt has chronic neuropathy affecting light touch sensation in bilateral feet in stocking distribution. PT-OP-M Strength Start: 05/11/22 15:38 Freq: Status: Active Protocol: Document 05/23/22 10:30 AW (Rec: 05/24/22 15:02 AW [id number]) Hip Strength Hip Manual Muscle Testing bilat Flexion (L2) 4 Good Extension (S1) 3+ Fair+ Abduction 4 Good External Rotation 4+ Good+ Internal Rotation 4+ Good+ Comments Resisted R hip extension and resisted B IR provoke hip and back pain. Knee Strength Knee Manual Muscle Testing bilat Flexion (S2) 4 Good Extension (L3) 4+ Good+ Ankle/Foot Strength Ankle and Foot Manual Muscle Testing bilat Dorsiflexion (L4) 4 Good Plantarflexion (S1) 4- Good- PT-OP-Q Treatments Start: 05/11/22 15:38 Freq: Status: Active Protocol: Document 08/08/22 09:48 SP (Rec: 08/08/22 10:33 SP [id number]) Therapeutic Exercises Supine Exercises SKTC Supine Exercise Name SKTC- HEP reviewed Side bilateral Reps/Minutes 10SH x 10 Comments good feedback back stretch piriformis stretch Supine Exercise Name piriformis stretch - opp knee bent/ foot planted Side bilateral Reps/Minutes 30 SH x 3 Comments very limited R hip into IR- good stretch L hip Sitting Exercises self STMs Sitting Exercise Name ITB seated, Glut standing ball at wall Equipment Used rolling pin, ball at wall Reps/Minutes 3 min total Comments good feedback response. Standing Exercises ITB stretch Standing Exercise Name initiated this tx (best response vs supine) Side right Equipment Used R facing wall support Reps/Minutes 20SH x3 Comments good feedback ITB stretch Therapeutic Activity Therapeutic Activity floor transfer Name on /off floor use rail support for yoga stretching Gait Training Gait Activity dynamic gait Description quick amplitude, HTs, f/b, quick lateral stepping, MAP stairs Device Used 0 Level of Assistance S Treatment Focus stability, foot clearance, equal micheal, endurance amplitude Comments good feedback effort and tiring, little SOB but ok Improved no R hip pain more muscle weakness Manual Therapy Treatment Joint Mobilizations hip mob Joint R Direction lateral, inferior Grade II Body Position Supine Reps/Duration 8 min Comments good feedback distratction stretch PT-OP-T Assessment and Plan Start: 05/11/22 15:38 Freq: Status: Active Protocol: Document 08/08/22 09:48 SP (Rec: 08/08/22 10:33 SP [id number]) Physical Therapy Assessment Goals Five Impairment impairment with daily activities Seed Sales Manager Goal (LTG) Pt will improve modified Oswestry score from 42 to 20 or less as a measure of improved ease with daily activities. 08/04/22: progressing: Score 21 or 42% or 20 to 39% Impaired (Score 20-39) LTG Duration progressing 08/04/22 Four Impairment gait Seed Sales Manager Goal (LTG) Sánchez will walk 1500 feet with SPC on 6 Minute Walk Test for improved safety in community ambulation. 08/04/22: progressing 1230 ft no AD in 6 min LTG Duration 08/15/22 progressing 08/04/22 Three Impairment strength Short Term Goal (STG) Pt will complete sit to stand from standard height chair without UE support 08/04/22 GOAL met: 18 chair no UE support STG Duration 07/04/22 08/04/22 GOAL MET Seed Sales Manager Goal (LTG) Pt will complete 5 Time Sit to Stand from standard height chair without UE support in 13 seconds or less. 08/04/22: progressing: no UE support 18 chair 20sec, 19sec today LTG Duration 08/15/22 progressin08/04/22 Two Impairment balance Seed Sales Manager Goal (LTG) Pt will improve [place]orm Balance score to 49/56 or greater as a measure of improved balance 08/04/22: GOAL MET: 54/56, unable SLS on RLE longer than 3 sec. LTG Duration 08/15/22 GOAL MET 08/04/22 One Impairment lacks HEP Short Term Goal (STG) Sánchez will be instructed in HEP for lower extremity strength and balance to support therapy services provided in clinic STG Duration 07/04/22 Long-Term Goal (LTG) Sánchez will be independently engaged with HEP for LE strength and balance LTG Duration 08/15/22 Assessment Summary Assessment Pt reported improved R hip mobility post manual gentle traction and initiated hip IR stretching standing best positioning ITB at wall. Good feedback response to initiated quick stepping/ ladder drills , cues for awareness foot clearance safety. Physical Therapy Plan Frequency and Duration Frequency of Treatment 2x/Week Plan of Care Start Date 05/23/22 Plan of Care End Date 08/15/22 Therapeutic Interventions Therapeutic Interventions Balance Training,Gait Training ,Home Exercise Program,Manual Therapy,Neuromuscular Re- education,Self-Care/Home Management,Soft Tissue Mobilization,Taping, Therapeutic Activities, Therapeutic Exercises Modalities Cold Pack/Ice Massage,Hot Packs Next Visit Focus/Plan Next Note Type Treatment Note Next Visit Plan PT to complete update POC soon . Continue progress balaance challenges. Future discuss pool application exercise with son for back health.
--- NOTE | 2022-08-11 10:38 | PT.OTN ---
Current Diagnoses Other chronic pain (08/11/22) Low back pain, unspecified (08/11/22) Difficulty in walking, not elsewhere classified (08/11/22) Physical Therapy Treatment Note PT-OP-A Visit Information Start: 05/11/22 15:38 Freq: Status: Active Protocol: Document 08/11/22 09:51 SP (Rec: 08/11/22 10:39 SP [id number]) Out-Patient Physical Therapy Visit Information Visit Information Visit Type Treatment Note Visit Note Updated POC on 08/17 appt with Dina JACKSON, expires 08/15/22. 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 He has history of TBI/head trauma and diabetes. He had surgery on his left foot/Achilles in 2011 to correct his arch. He was planning to have the same surgery on the right side but was unable due to insurance limitations. He wears diabetic shoes with custom inserts. He typically has his inserts updated yearly but has not had a new pair now in ~4 years. He went to PT in 2017 while living in [place] and found it helpful. PT advised him to walk with a cane due to balance concerns. He uses a cane in either hand (tends to switch every now and then) which is helpful. He denies falls while using an AD. He denies frequent falls but states he is much more likely to fall without AD. He fell in August 2021 while cleaning ears with a q-tip. He went to ED and was found to have ruptured his eardrum. Sánchez has a history of housing insecurity but currently lives in [place] with his 6 yo son. He has full custody. Prior Treatments and Tests Outpatient PT 4 years ago Future Testing and Treatments Planned Follow up with podiatry in ~6 months. Treatment Goals Patient/Caregiver Goals Decrease back and LE pain, decrease falls risk, improve strength to be better able to care for 6 yo son. Personal Factors Other Personal Factors That May Effect Current daily smoker, TBI, Therapy/Recovery anxiety, depression. PT-OP-C Subjective Start: 05/11/22 15:38 Freq: Status: Active Protocol: Document 08/11/22 09:51 SP (Rec: 08/11/22 10:39 SP [id number]) OP-PT Subjective Patient Comments Patient Comments Pt reports stretches last visit helping mobility in/out car with better mechanics. Wears a copperfit compression sleeve on R>L knees. R hip feels getting better so do more activities then B knees start get little irritated. Has started doing some jogging on mini Wattpad with son at home and painfree but tried jumpt twist and knees didn't like it.Wants more active things can do on own. Is improving, not using trek pole all the time gait on pavement trails with grandson riding bike. PT-OP-D Balance Start: 05/11/22 15:38 Freq: Status: Active Protocol: Document 08/04/22 09:48 SP (Rec: 08/04/22 10:32 SP [id number]) Storm Balance Assessment Total Score Storm Impairment Rating 1 to 19% Impaired (Score 45-55 ) PT-OP-E Functional Tests Start: 05/11/22 15:38 Freq: Status: Active Protocol: Document 08/04/22 09:48 SP (Rec: 08/04/22 10:32 SP [id number]) Functional Tests 6 Minute Walk Test Distance 1230 Device Used none Comments cued TA needed for LB support Five Times Sit to Stand Test Score 20 sec, 19 sec Comments good form, cued increase pace if can (arms across chest) PT-OP-F Manual Assessment Start: 05/11/22 15:38 Freq: Status: Active Protocol: Document 05/23/22 10:30 AW (Rec: 05/23/22 17:51 AW [id number]) Manual Assessments Soft Tissue Assessment Soft Tissue Mobility Assessment Limited passive SLR bilaterally - lacking ~25 degrees to 90. Limited hip IR bilaterally with pain at end range. Limited hip ER on the right. Tender to palpation and bilateral lower lumbar paraspinals. 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 He tends to vault more during RLE stance but is generally steady with AD. PT-OP-H Neuro Start: 05/11/22 15:38 Freq: Status: Active Protocol: Document 05/23/22 10:30 AW (Rec: 05/23/22 17:53 AW [id number]) Sensation Evaluation Comments Summary Comments Pt has chronic neuropathy affecting light touch sensation in bilateral feet in stocking distribution. PT-OP-M Strength Start: 05/11/22 15:38 Freq: Status: Active Protocol: Document 05/23/22 10:30 AW (Rec: 05/24/22 15:02 AW [id number]) Hip Strength Hip Manual Muscle Testing bilat Flexion (L2) 4 Good Extension (S1) 3+ Fair+ Abduction 4 Good External Rotation 4+ Good+ Internal Rotation 4+ Good+ Comments Resisted R hip extension and resisted B IR provoke hip and back pain. Knee Strength Knee Manual Muscle Testing bilat Flexion (S2) 4 Good Extension (L3) 4+ Good+ Ankle/Foot Strength Ankle and Foot Manual Muscle Testing bilat Dorsiflexion (L4) 4 Good Plantarflexion (S1) 4- Good- PT-OP-Q Treatments Start: 05/11/22 15:38 Freq: Status: Active Protocol: Document 08/11/22 09:51 SP (Rec: 08/11/22 10:39 SP [id number]) Gym Equipment Shuttle Recovery unilateral squat Resistance 75# (2 new bands) Shuttle Recovery Platform Stable Reps/Time 2x15 alternating bilateral squat Details cued slow controlled pacing, soft knee top Resistance 125# (4 new bands) Shuttle Recovery Platform Stable Reps/Time x20 total Shuttle Rebound light run motion Exercise Details cued even BLEs Reps/Duration 20 reps Comments good form, stability. squats Exercise Details Assessed: mini squat into OH press 5.5 # black med ball Reps/Duration x10 reps Comments Son wants see if home round minitrampoline can be useful. Improved hip hinge mechanics able add wt. Therapeutic Exercises Sitting Exercises STS Sitting Exercise Name HEP Equipment Used mesh chair- arms across chest Reps/Minutes 12 sec Comments MET GOAL Standing Exercises self STMs Standing Exercise Name ES, glut, QL end tx Side bilateral Equipment Used racquetball wall Reps/Minutes 2 min total Comments discomfort tension QL went away post self performance QL stretch Standing Exercise Name review self lateral SB Equipment Used repeat is active ab work Reps/Minutes cued 15-20 SH stretch resisted side stepping Standing Exercise Name lateral, fwd, Bwd Side bilateral Resistance TB #3 loop at ankles Reps/Minutes 2x10 Comments good effort, cued aware intial steps sneaker sole no scuff safety hip abd, ext Side bilateral Resistance TB #3 loop at ankles Reps/Minutes 2x10 Comments cued PPT awaress- good effort painfree PT-OP-T Assessment and Plan Start: 05/11/22 15:38 Freq: Status: Active Protocol: Document 08/11/22 09:51 SP (Rec: 08/11/22 10:39 SP [id number]) Physical Therapy Assessment Goals Five Impairment impairment with daily activities Jail Goal (LTG) Pt will improve modified Oswestry score from 42 to 20 or less as a measure of improved ease with daily activities. 08/04/22: progressing: Score 21 or 42% or 20 to 39% Impaired (Score 20-39) LTG Duration progressing 08/04/22 Four Impairment gait Jail Goal (LTG) Sánchez will walk 1500 feet with SPC on 6 Minute Walk Test for improved safety in community ambulation. 08/04/22: progressing 1230 ft no AD in 6 min LTG Duration 08/15/22 progressing 08/04/22 Three Impairment strength Short Term Goal (STG) Pt will complete sit to stand from standard height chair without UE support 08/04/22 GOAL met: 18 chair no UE support STG Duration 07/04/22 08/04/22 GOAL MET Gold Layer Goal (LTG) Pt will complete 5 Time Sit to Stand from standard height chair without UE support in 13 seconds or less. 08/04/22: progressing: no UE support 18 chair 20sec, 19sec today 08/11/22: GOAL MET: 12 sec LTG Duration 08/15/22 GOAL MET: 08/11/22 Two Impairment balance Jail Goal (LTG) Pt will improve Storm Balance score to 49/56 or greater as a measure of improved balance 08/04/22: GOAL MET: 54/56, unable SLS on RLE longer than 3 sec. LTG Duration 08/15/22 GOAL MET 08/04/22 One Impairment lacks HEP Short Term Goal (STG) Sánchez will be instructed in HEP for lower extremity strength and balance to support therapy services provided in clinic 08/11/22 STG Duration 07/04/22 Jail Goal (LTG) Sánchez will be independently engaged with HEP for LE strength and balance LTG Duration 08/15/22 Assessment Summary Assessment Pt making gains in endurance, functional strengthening and reports stretching and mindfulness of alignment with use UE support needed coming to standing. He finds R hip pain still there but doesn't impeded him from doing activities wants to. Wants to continue more advance strenght and balance to transition to safe gym program with son. Physical Therapy Plan Frequency and Duration Frequency of Treatment 2x/Week Plan of Care Start Date 05/23/22 Plan of Care End Date 08/15/22 Therapeutic Interventions Therapeutic Interventions Balance Training,Gait Training ,Home Exercise Program,Manual Therapy,Neuromuscular Re- education,Self-Care/Home Management,Soft Tissue Mobilization,Taping, Therapeutic Activities, Therapeutic Exercises Modalities Cold Pack/Ice Massage,Hot Packs Next Visit Focus/Plan Next Note Type Progress Note Next Visit Plan Update POC next tx, assess if progressed to met most goals and balance/mechanics ready for self gym program with son. POC: Continue progress balance challenges. Future discuss pool application exercise with son for back health.
--- NOTE | 2022-08-17 12:17 | PT.OIE ---
Current Diagnoses Other chronic pain (08/17/22) Low back pain, unspecified (08/17/22) Difficulty in walking, not elsewhere classified (08/17/22) Past Medical History (Last Reviewed 08/23/21 @ 04:56 by Guille Rahman DO) Allergies (~2004) Anxiety and depression (~2009) Carpal tunnel syndrome (~1984) Chicken pox (~1977) Chronic back pain (~2009) Diabetes mellitus (~2009) Foot pain (~2009) Headache (~2009) Hearing loss History of urinary incontinence (~2009) Hypertension (~2004) Low testosterone (~2009) Near sighted (~2004) Numerous skin moles (~1964) PTSD (post-traumatic stress disorder) (~2011) Restless leg syndrome (~2004) Sleep apnea (~2009) TIA (transient ischemic attack) (~2013) Vision disorder Past Surgical History (Last Reviewed 08/23/21 @ 04:56 by Guille Rahman DO) Anesthesia History of ankle surgery (~2011) History of carpal tunnel release (~1982) History of rhinoplasty (~1994) History of surgery (~2020) Visit Care Team Role Provider Type Ana Rosa Matos DO Attending Provider Non-Staff Family Provider Primary Care Provider Referring Provider Specialty: Family Practice Address: [address] [place] [address], [facility] Email: Physical Therapy Initial Evaluation PT-OP-A Visit Information Start: 05/11/22 15:38 Freq: Status: Active Protocol: Document 08/17/22 11:18 SAK (Rec: 08/17/22 12:17 SAK [id number]) Out-Patient Physical Therapy Visit Information Visit Information Visit Type Re-Evaluation Visit Start Time 11:19 Visit Stop Time 11:59 Total Visit Minutes 40 Visit Number 13 Number of LIGHTING ENGINEERING TECHNICIAN Visits 0 PT-OP-B Current Condition Start: 05/11/22 15:38 Freq: Status: Active Protocol: Document 05/23/22 10:30 AW (Rec: 05/11/22 15:53 AW [id number]) Current Condition History of Current Condition Onset Date chronic Current Complaints back pain, bilateral leg and foot pain History of Current Condition Sánchez reports chronic back, hip, knee, and foot pain. He has history of TBI/head trauma and diabetes. He had surgery on his left foot/Achilles in 2011 to correct his arch. He was planning to have the same surgery on the right side but was unable due to insurance limitations. He wears diabetic shoes with custom inserts. He typically has his inserts updated yearly but has not had a new pair now in ~4 years. He went to PT in 2017 while living in [place] and found it helpful. PT advised him to walk with a cane due to balance concerns. He uses a cane in either hand (tends to switch every now and then) which is helpful. He denies falls while using an AD. He denies frequent falls but states he is much more likely to fall without AD. He fell in August 2021 while cleaning ears with a q-tip. He went to ED and was found to have ruptured his eardrum. Sánchez has a history of housing insecurity but currently lives in [place] with his 6 yo son. He has full custody. Prior Treatments and Tests Outpatient PT 4 years ago Future Testing and Treatments Planned Follow up with podiatry in ~6 months. Treatment Goals Patient/Caregiver Goals Decrease back and LE pain, decrease falls risk, improve strength to be better able to care for 6 yo son. Personal Factors Other Personal Factors That May Effect Current daily smoker, TBI, Therapy/Recovery anxiety, depression. 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 States prolonged standing still a problem. States PT has helped him improve ease of sitting though persists, improved sit to stand and ability to get in /out of car. . In process of getting diabetic shoes or orthotics. Low back pain isolated to right side. Has appointment with Dr. Rivera next month to check diabetes and progress with PT. Looking for options regarding fitness center after fdischarge from PT. Goals for PT, improve strength, balance. Continues to use SPC. Likes use of raquetball for self-massage Patient Reported Progress Improving PT-OP-D Balance Start: 05/11/22 15:38 Freq: Status: Active Protocol: Document 08/04/22 09:48 SP (Rec: 08/04/22 10:32 SP [id number]) Zaragoza Balance Assessment Total Score Zaragoza Impairment Rating 1 to 19% Impaired (Score 45-55 ) PT-OP-E Functional Tests Start: 05/11/22 15:38 Freq: Status: Active Protocol: Document 08/04/22 09:48 SP (Rec: 08/04/22 10:32 SP [id number]) Functional Tests 6 Minute Walk Test Distance 1230 Device Used none Comments cued TA needed for LB support Five Times Sit to Stand Test Score 20 sec, 19 sec Comments good form, cued increase pace if can (arms across chest) PT-OP-F Manual Assessment Start: 05/11/22 15:38 Freq: Status: Active Protocol: Document 05/23/22 10:30 AW (Rec: 05/23/22 17:51 AW [id number]) Manual Assessments Soft Tissue Assessment Soft Tissue Mobility Assessment Limited passive SLR bilaterally - lacking ~25 degrees to 90. Limited hip IR bilaterally with pain at end range. Limited hip ER on the right. Tender to palpation and bilateral lower lumbar paraspinals. PT-OP-G Mobility & Gait Start: 05/11/22 15:38 Freq: Status: Active Protocol: Document 05/23/22 10:30 AW (Rec: 05/23/22 17:51 AW [id number]) OP Mobility Evaluation Transfers Sit to Stand Definite use of hands but able on first attempt Functional Movements Squats Pt is able to squat low enough to safely meat pickler an item from the floor but with altered mechanics OP Gait Assessment Comments Gait Comments Pt ambulates with SPC held in either hand. He tends to vault more during RLE stance but is generally steady with AD. PT-OP-H Neuro Start: 05/11/22 15:38 Freq: Status: Active Protocol: Document 05/23/22 10:30 AW (Rec: 05/23/22 17:53 AW [id number]) Sensation Evaluation Comments Summary Comments Pt has chronic neuropathy affecting light touch sensation in bilateral feet in stocking distribution. PT-OP-M Strength Start: 05/11/22 15:38 Freq: Status: Active Protocol: Document 05/23/22 10:30 AW (Rec: 05/24/22 15:02 AW [id number]) Hip Strength Hip Manual Muscle Testing bilat Flexion (L2) 4 Good Extension (S1) 3+ Fair+ Abduction 4 Good External Rotation 4+ Good+ Internal Rotation 4+ Good+ Comments Resisted R hip extension and resisted B IR provoke hip and back pain. Knee Strength Knee Manual Muscle Testing bilat Flexion (S2) 4 Good Extension (L3) 4+ Good+ Ankle/Foot Strength Ankle and Foot Manual Muscle Testing bilat Dorsiflexion (L4) 4 Good Plantarflexion (S1) 4- Good- PT-OP-Q Treatments Start: 05/11/22 15:38 Freq: Status: Active Protocol: Document 08/17/22 11:18 [facility] (Rec: 08/17/22 12:17 [facility] [id number]) Gym Equipment Shuttle Recovery unilateral squat Resistance 75# (2 new bands) Shuttle Recovery Platform Stable Reps/Time 2x15 alternating bilateral squat Details cued slow controlled pacing, soft knee top Resistance 125# (4 new bands) Shuttle Recovery Platform Stable Reps/Time x20 total Therapeutic Exercises Sitting Exercises piriformis stretch Sitting Exercise Name Reviewed HEP Side bilateral Reps/Minutes 30 x3 Comments cued use UE support LE over opp LE HS stretch Sitting Exercise Name HS stretch HEP review Side bilateral Reps/Minutes 30 SH x 4 Comments cued hip hinge and PF felt more HS than calf recruiment stretch Standing Exercises quad stretch Reps/Minutes 2x30 Gait Training Gait Activity 6MWT Device Used 0 Level of Assistance Mod I Surface tile/carpet Distance/Duration 1521 ft Treatment Focus functional community ambulation speed Comments cued TA if needed for R LB support, R hip- no pain during gait. Manual Therapy Treatment Other Other Manual Treatments MMT hilda LE's, core Neuro Re-Education Treatment Balance Activities ZARAGOZA Details 54/56 Comments unable complete SLS on RLE >3 sec PT-OP-T Assessment and Plan Start: 05/11/22 15:38 Freq: Status: Active Protocol: Document 08/17/22 11:18 [facility] (Rec: 08/17/22 12:17 [facility] [id number]) Physical Therapy Assessment Goals Six Impairment unsteady gait on uneven ground Impairment history of falls Care Home Goal (LTG) Patient will demonstrate improved functional balance to allow him to step over 6 8 hurdles in a row without assistance or LOB, and walk across foam pods, and up/down 4-8 boxes without assistance or LOB to decrease fall risk LTG Duration 10/04/22 Five Impairment impairment with daily activities Care Home Goal (LTG) Pt will improve modified Oswestry score from 42 to 20 or less as a measure of improved ease with daily activities. 08/04/22: progressing: Score 21 or 42% or 20 to 39% Impaired (Score 20-39) 08/17 goal progress 39% LTG Duration progressing Four Impairment gait Hat And Cap Sewer Goal (LTG) Sánchez will walk 1500 feet with SPC on 6 Minute Walk Test for improved safety in community ambulation. 08/04/22: progressing 1230 ft no AD in 6 min 08/17/22: goal met with no AD LTG Duration goal met Three Impairment strength Short Term Goal (STG) Pt will complete sit to stand from standard height chair without UE support 08/04/22 GOAL met: 18 chair no UE support STG Duration 07/04/22 08/04/22 GOAL MET Hat And Cap Sewer Goal (LTG) Pt will complete 5 Time Sit to Stand from standard height chair without UE support in 13 seconds or less. 08/04/22: progressing: no UE support 18 chair 20sec, 19sec today 08/11/22: GOAL MET: 12 sec LTG Duration 08/15/22 GOAL MET: 08/11/22 Two Impairment balance Hat And Cap Sewer Goal (LTG) Pt will improve Zaragoza Balance score to 49/56 or greater as a measure of improved balance 08/04/22: GOAL MET: 54/56, unable SLS on RLE longer than 3 sec. LTG Duration 08/15/22 GOAL MET 08/04/22 One Impairment lacks HEP Short Term Goal (STG) Sánchez will be instructed in HEP for lower extremity strength and balance to support therapy services provided in clinic 08/11/22: ongoing STG Duration goal met Hat [employer] Sewer Goal (LTG) Sánchez will be independently engaged with HEP for LE strength and balance 08/17/22: good goal progress, ongoing progression, needs progression to fitness center machines LTG Duration 08/15/22 Assessment Summary Assessment Needed core reminders especially with tansitonal movements. Met 6 min walk test goal. Has potential for further improvements in balance, functional strength, pain reduction. Recommend continued skilled PT to help him fully achieve Physical Therapy Plan Frequency and Duration Frequency of Treatment 2x/Week Duration of treatment (weeks) 8 Plan of Care Start Date 08/17/22 Plan of Care End Date 10/04/22 Therapeutic Interventions Therapeutic Interventions Balance Training,Gait Training ,Home Exercise Program,Manual Therapy,Neuromuscular Re- education,Self-Care/Home Management,Soft Tissue Mobilization,Taping, Therapeutic Activities, Therapeutic Exercises Modalities Cold Pack/Ice Massage,Hot Packs Next Visit Focus/Plan Next Note Type Treatment Note Next Visit Plan Continue to progress functional strength, balance, fitness routine including weight machines.
--- NOTE | 2022-08-17 12:17 | PT.OPPOC ---
Physical, Occupational & Speech Therapy At [facility] Current Diagnoses Other chronic pain (08/17/22) Low back pain, unspecified (08/17/22) Difficulty in walking, not elsewhere classified (08/17/22) Visit Care Team Role Provider Type Ana Rosa Matos DO Attending Provider Non-Staff Family Provider Primary Care Provider Referring Provider Specialty: Family Practice Address: [address] [place] [address], [id number] Email: Plan Of Care PT-OP-T Assessment and Plan Start: 05/11/22 15:38 Freq: Status: Active Protocol: Document 08/17/22 11:18 SAK (Rec: 08/17/22 12:17 SAK [id number]) Physical Therapy Assessment Goals Six Impairment unsteady gait on uneven ground Impairment history of falls Industrial Cleaning Technician Goal (LTG) Patient will demonstrate improved functional balance to allow him to step over 6 8 hurdles in a row without assistance or LOB, and walk across foam pods, and up/down 4-8 boxes without assistance or LOB to decrease fall risk LTG Duration 10/04/22 Five Impairment impairment with daily activities Detention Goal (LTG) Pt will improve modified Oswestry score from 42 to 20 or less as a measure of improved ease with daily activities. 08/04/22: progressing: Score 21 or 42% or 20 to 39% Impaired (Score 20-39) 08/17 goal progress 39% LTG Duration progressing Four Impairment gait Industrial Cleaning Technician Goal (LTG) Sánchez will walk 1500 feet with SPC on 6 Minute Walk Test for improved safety in community ambulation. 08/04/22: progressing 1230 ft no AD in 6 min 08/17/22: goal met with no AD LTG Duration goal met Three Impairment strength Short Term Goal (STG) Pt will complete sit to stand from standard height chair without UE support 08/04/22 GOAL met: 18 chair no UE support STG Duration 07/04/22 08/04/22 GOAL MET Detention Goal (LTG) Pt will complete 5 Time Sit to Stand from standard height chair without UE support in 13 seconds or less. 08/04/22: progressing: no UE support 18 chair 20sec, 19sec today 08/11/22: GOAL MET: 12 sec LTG Duration 08/15/22 GOAL MET: 08/11/22 Two Impairment balance Industrial Cleaning Technician Goal (LTG) Pt will improve Storm Balance score to 49/56 or greater as a measure of improved balance 08/04/22: GOAL MET: 54/56, unable SLS on RLE longer than 3 sec. LTG Duration 08/15/22 GOAL MET 08/04/22 One Impairment lacks HEP Short Term Goal (STG) Sánchez will be instructed in HEP for lower extremity strength and balance to support therapy services provided in clinic 08/11/22: ongoing STG Duration goal met Detention Goal (LTG) Sánchez will be independently engaged with HEP for LE strength and balance 08/17/22: good goal progress, ongoing progression, needs progression to fitness center machines LTG Duration 08/15/22 Assessment Summary Assessment Needed core reminders especially with tansitonal movements. Met 6 min walk test goal. Has potential for further improvements in balance, functional strength, pain reduction. Recommend continued skilled PT to help him fully achieve Physical Therapy Plan Frequency and Duration Frequency of Treatment 2x/Week Duration of treatment (weeks) 8 Plan of Care Start Date 08/17/22 Plan of Care End Date 10/04/22 Therapeutic Interventions Therapeutic Interventions Balance Training,Gait Training ,Home Exercise Program,Manual Therapy,Neuromuscular Re- education,Self-Care/Home Management,Soft Tissue Mobilization,Taping, Therapeutic Activities, Therapeutic Exercises Modalities Cold Pack/Ice Massage,Hot Packs Next Visit Focus/Plan Next Note Type Treatment Note Next Visit Plan Continue to progress functional strength, balance, fitness routine including weight machines. Plan of Care Dates Plan of Care Start Date 08/17/22 Plan of Care End Date 10/04/22 Electronically Signed by: Dina Benson, PT 08/17/22 1511 If you are in agreement with this Plan of Care, please return a signed and dated copy. I have reviewed this Plan of Care and certify that the skilled therapy services above are required to meet the patient?s needs. Physician Signature Date Printed Name and Credentials Clinical Instructor Signature Printed Name and Credentials
--- NOTE | 2022-08-24 12:06 | PT.OTN ---
Current Diagnoses Other chronic pain (08/24/22) Low back pain, unspecified (08/24/22) Difficulty in walking, not elsewhere classified (08/24/22) Physical Therapy Treatment Note PT-OP-A Visit Information Start: 05/11/22 15:38 Freq: Status: Active Protocol: Document 08/24/22 11:19 SAK (Rec: 08/24/22 12:06 SAK [id number]) Out-Patient Physical Therapy Visit Information Visit Information Visit Type Treatment Note Visit Start Time 11:20 Visit Stop Time 11:59 Total Visit Minutes 39 Visit Number 14 Number of PARTITION SETTER Visits 0 Evaluation Information Evaluation Date 05/23/22 PT-OP-B Current Condition Start: 05/11/22 15:38 Freq: Status: Active Protocol: Document 05/23/22 10:30 AW (Rec: 05/11/22 15:53 AW [id number]) Current Condition History of Current Condition Onset Date chronic Current Complaints back pain, bilateral leg and foot pain History of Current Condition Sánchez reports chronic back, hip, knee, and foot pain. He has history of TBI/head trauma and diabetes. He had surgery on his left foot/Achilles in 2011 to correct his arch. He was planning to have the same surgery on the right side but was unable due to insurance limitations. He wears diabetic shoes with custom inserts. He typically has his inserts updated yearly but has not had a new pair now in ~4 years. He went to PT in 2017 while living in [place] and found it helpful. PT advised him to walk with a cane due to balance concerns. He uses a cane in either hand (tends to switch every now and then) which is helpful. He denies falls while using an AD. He denies frequent falls but states he is much more likely to fall without AD. He fell in August 2021 while cleaning ears with a q-tip. He went to ED and was found to have ruptured his eardrum. Sánchez has a history of housing insecurity but currently lives in [place] with his 6 yo son. He has full custody. Prior Treatments and Tests Outpatient PT 4 years ago Future Testing and Treatments Planned Follow up with podiatry in ~6 months. Treatment Goals Patient/Caregiver Goals Decrease back and LE pain, decrease falls risk, improve strength to be better able to care for 6 yo son. Personal Factors Other Personal Factors That May Effect Current daily smoker, TBI, Therapy/Recovery anxiety, depression. PT-OP-C Subjective Start: 05/11/22 15:38 Freq: Status: Active Protocol: Document 08/24/22 11:19 SAK (Rec: 08/24/22 12:06 SAK [id number]) OP-PT Subjective Patient Comments Patient Comments pain 3/10 right low back when came in. TEnds to feel better when exercises, requests start on treadmill. Has doctor's appointment on Sunday . Reports sitting for long periods increases his pain. Has been using trampoline at home, tennis ball for self- massage as insructed. Patient Reported Progress Improving PT-OP-D Balance Start: 05/11/22 15:38 Freq: Status: Active Protocol: Document 08/04/22 09:48 SP (Rec: 08/04/22 10:32 SP [id number]) Storm Balance Assessment Total Score Storm Impairment Rating 1 to 19% Impaired (Score 45-55 ) PT-OP-E Functional Tests Start: 05/11/22 15:38 Freq: Status: Active Protocol: Document 08/04/22 09:48 SP (Rec: 08/04/22 10:32 SP [id number]) Functional Tests 6 Minute Walk Test Distance 1230 Device Used none Comments cued TA needed for LB support Five Times Sit to Stand Test Score 20 sec, 19 sec Comments good form, cued increase pace if can (arms across chest) PT-OP-F Manual Assessment Start: 05/11/22 15:38 Freq: Status: Active Protocol: Document 05/23/22 10:30 AW (Rec: 05/23/22 17:51 AW [id number]) Manual Assessments Soft Tissue Assessment Soft Tissue Mobility Assessment Limited passive SLR bilaterally - lacking ~25 degrees to 90. Limited hip IR bilaterally with pain at end range. Limited hip ER on the right. Tender to palpation and bilateral lower lumbar paraspinals. PT-OP-G Mobility & Gait Start: 05/11/22 15:38 Freq: Status: Active Protocol: Document 05/23/22 10:30 AW (Rec: 05/23/22 17:51 AW [id number]) OP Mobility Evaluation Transfers Sit to Stand Definite use of hands but able on first attempt Functional Movements Squats Pt is able to squat low enough to safely order picker an item from the floor but with altered mechanics OP Gait Assessment Comments Gait Comments Pt ambulates with SPC held in either hand. He tends to vault more during RLE stance but is generally steady with AD. PT-OP-H Neuro Start: 05/11/22 15:38 Freq: Status: Active Protocol: Document 05/23/22 10:30 AW (Rec: 05/23/22 17:53 AW [id number]) Sensation Evaluation Comments Summary Comments Pt has chronic neuropathy affecting light touch sensation in bilateral feet in stocking distribution. PT-OP-M Strength Start: 05/11/22 15:38 Freq: Status: Active Protocol: Document 05/23/22 10:30 AW (Rec: 05/24/22 15:02 AW [id number]) Hip Strength Hip Manual Muscle Testing bilat Flexion (L2) 4 Good Extension (S1) 3+ Fair+ Abduction 4 Good External Rotation 4+ Good+ Internal Rotation 4+ Good+ Comments Resisted R hip extension and resisted B IR provoke hip and back pain. Knee Strength Knee Manual Muscle Testing bilat Flexion (S2) 4 Good Extension (L3) 4+ Good+ Ankle/Foot Strength Ankle and Foot Manual Muscle Testing bilat Dorsiflexion (L4) 4 Good Plantarflexion (S1) 4- Good- PT-OP-Q Treatments Start: 05/11/22 15:38 Freq: Status: Active Protocol: Document 08/24/22 11:19 SAK (Rec: 08/24/22 12:06 SAK [id number]) Cardio Equipment Treadmill Duration (Minutes) 5 Speed 3- Incline 0 Other cues for core activation, heel /toe pattern, gluteal activation Gym Equipment Cable Column (Body Solid) Leg Curl Resistance #4 Reps/Time x20 Rows Resistance #2 Reps/Time x15 Lat Pull Down Resistance #2 Reps/Time x15 Shuttle Recovery unilateral squat Resistance 75# (2 new bands) Shuttle Recovery Platform Stable Reps/Time 2x15 alternating bilateral squat Details cued slow controlled pacing, soft knee top Resistance 125# (4 new bands) Shuttle Recovery Platform Stable Reps/Time x20 total Shuttle Balance red chains Details staggered feet, side to side bal and wt shift Reps/Duration 10 min Comments CG to min assist, harder with right leg in back with staggered. Therapeutic Exercises Supine Exercises HS stretch Reps/Minutes 2x30 Sitting Exercises piriformis stretch Sitting Exercise Name Reviewed HEP Side bilateral Reps/Minutes 30 x3 Comments cued use UE support LE over opp LE PT-OP-T Assessment and Plan Start: 05/11/22 15:38 Freq: Status: Active Protocol: Document 08/24/22 11:[address] [facility] (Rec: 08/24/22 12:[address] [facility] [id number]) Physical Therapy Assessment Goals Six Impairment unsteady gait on uneven ground Impairment history of falls Intermediate Goal (LTG) Patient will demonstrate improved functional balance to allow him to step over 6 8 hurdles in a row without assistance or LOB, and walk across foam pods, and up/down 4-8 boxes without assistance or LOB to decrease fall risk LTG Duration 10/04/22 Five Impairment impairment with daily activities Intermediate Goal (LTG) Pt will improve modified Oswestry score from 42 to 20 or less as a measure of improved ease with daily activities. 08/04/22: progressing: Score 21 or 42% or 20 to 39% Impaired (Score 20-39) 08/17 goal progress 39% LTG Duration progressing Four Impairment gait Factory Focus Technician Goal (LTG) Sánchez will walk 1500 feet with SPC on 6 Minute Walk Test for improved safety in community ambulation. 08/04/22: progressing 1230 ft no AD in 6 min 08/17/22: goal met with no AD LTG Duration goal met One Impairment lacks HEP Short Term Goal (STG) Sánchez will be instructed in HEP for lower extremity strength and balance to support therapy services provided in clinic 08/11/22: ongoing STG Duration goal met Factory Focus Technician Goal (LTG) Sánchez will be independently engaged with HEP for LE strength and balance 08/17/22: good goal progress, ongoing progression, needs progression to fitness center machines LTG Duration 08/15/22 Assessment Summary Assessment Cues for stacking thoracic spine over pelvis with standing exercises on treadmill and shuttle balance; needs multiple postural and core stab cues Physical Therapy Plan Frequency and Duration Frequency of Treatment 2x/Week Duration of treatment (weeks) 8 Plan of Care Start Date 08/17/22 Plan of Care End Date 10/04/22 Therapeutic Interventions Therapeutic Interventions Balance Training,Gait Training ,Home Exercise Program,Manual Therapy,Neuromuscular Re- education,Self-Care/Home Management,Soft Tissue Mobilization,Taping, Therapeutic Activities, Therapeutic Exercises Modalities Cold Pack/Ice Massage,Hot Packs Next Visit Focus/Plan Next Note Type Treatment Note Next Visit Plan Continue to progress functional strength, balance, fitness routine including weight machines.
--- NOTE | 2022-08-29 12:03 | PT.OTN ---
Current Diagnoses Other chronic pain (08/29/22) Low back pain, unspecified (08/29/22) Difficulty in walking, not elsewhere classified (08/29/22) Physical Therapy Treatment Note PT-OP-A Visit Information Start: 05/11/22 15:38 Freq: Status: Active Protocol: Document 08/29/22 11:18 SAK (Rec: 08/29/22 12:03 SAK [id number]) Out-Patient Physical Therapy Visit Information Visit Information Visit Type Treatment Note Visit Start Time 11:19 Visit Stop Time 11:59 Total Visit Minutes 40 Visit Number 15 Number of PATTERN TECHNICIAN Visits 0 Evaluation Information Evaluation Date 05/23/22 PT-OP-B Current Condition Start: 05/11/22 15:38 Freq: Status: Active Protocol: Document 05/23/22 10:30 AW (Rec: 05/11/22 15:53 AW [id number]) Current Condition History of Current Condition Onset Date chronic Current Complaints back pain, bilateral leg and foot pain History of Current Condition Sánchez reports chronic back, hip, knee, and foot pain. He has history of TBI/head trauma and diabetes. He had surgery on his left foot/Achilles in 2011 to correct his arch. He was planning to have the same surgery on the right side but was unable due to insurance limitations. He wears diabetic shoes with custom inserts. He typically has his inserts updated yearly but has not had a new pair now in ~4 years. He went to PT in 2017 while living in [place] and found it helpful. PT advised him to walk with a cane due to balance concerns. He uses a cane in either hand (tends to switch every now and then) which is helpful. He denies falls while using an AD. He denies frequent falls but states he is much more likely to fall without AD. He fell in August 2021 while cleaning ears with a q-tip. He went to ED and was found to have ruptured his eardrum. Sánchez has a history of housing insecurity but currently lives in [place] with his 6 yo son. He has full custody. Prior Treatments and Tests Outpatient PT 4 years ago Future Testing and Treatments Planned Follow up with podiatry in ~6 months. Treatment Goals Patient/Caregiver Goals Decrease back and LE pain, decrease falls risk, improve strength to be better able to care for 6 yo son. Personal Factors Other Personal Factors That May Effect Current daily smoker, TBI, Therapy/Recovery anxiety, depression. PT-OP-C Subjective Start: 05/11/22 15:38 Freq: Status: Active Protocol: Document 08/29/22 11:18 SAK (Rec: 08/29/22 12:03 SAK [id number]) OP-PT Subjective Patient Comments Patient Comments Saw doctor; recommended continued PT for hip pain and weakness (x-ray showed arthritis) and back pain ( arhritis also). Worst pain right buttock, worse with sitting, and still noting weakness right leg vs left. PT-OP-D Balance Start: 05/11/22 15:38 Freq: Status: Active Protocol: Document 08/04/22 09:48 SP (Rec: 08/04/22 10:32 SP [id number]) Storm Balance Assessment Total Score Storm Impairment Rating 1 to 19% Impaired (Score 45-55 ) PT-OP-E Functional Tests Start: 05/11/22 15:38 Freq: Status: Active Protocol: Document 08/04/22 09:48 SP (Rec: 08/04/22 10:32 SP [id number]) Functional Tests 6 Minute Walk Test Distance 1230 Device Used none Comments cued TA needed for LB support Five Times Sit to Stand Test Score 20 sec, 19 sec Comments good form, cued increase pace if can (arms across chest) PT-OP-F Manual Assessment Start: 05/11/22 15:38 Freq: Status: Active Protocol: Document 05/23/22 10:30 AW (Rec: 05/23/22 17:51 AW [id number]) Manual Assessments Soft Tissue Assessment Soft Tissue Mobility Assessment Limited passive SLR bilaterally - lacking ~25 degrees to 90. Limited hip IR bilaterally with pain at end range. Limited hip ER on the right. Tender to palpation and bilateral lower lumbar paraspinals. PT-OP-G Mobility & Gait Start: 05/11/22 15:38 Freq: Status: Active Protocol: Document 05/23/22 10:30 AW (Rec: 05/23/22 17:51 AW [id number]) OP Mobility Evaluation Transfers Sit to Stand Definite use of hands but able on first attempt Functional Movements Squats Pt is able to squat low enough to safely clam picker an item from the floor but with altered mechanics OP Gait Assessment Comments Gait Comments Pt ambulates with SPC held in either hand. He tends to vault more during RLE stance but is generally steady with AD. PT-OP-H Neuro Start: 05/11/22 15:38 Freq: Status: Active Protocol: Document 05/23/22 10:30 AW (Rec: 05/23/22 17:53 AW [id number]) Sensation Evaluation Comments Summary Comments Pt has chronic neuropathy affecting light touch sensation in bilateral feet in stocking distribution. PT-OP-M Strength Start: 05/11/22 15:38 Freq: Status: Active Protocol: Document 05/23/22 10:30 AW (Rec: 05/24/22 15:02 AW [id number]) Hip Strength Hip Manual Muscle Testing bilat Flexion (L2) 4 Good Extension (S1) 3+ Fair+ Abduction 4 Good External Rotation 4+ Good+ Internal Rotation 4+ Good+ Comments Resisted R hip extension and resisted B IR provoke hip and back pain. Knee Strength Knee Manual Muscle Testing bilat Flexion (S2) 4 Good Extension (L3) 4+ Good+ Ankle/Foot Strength Ankle and Foot Manual Muscle Testing bilat Dorsiflexion (L4) 4 Good Plantarflexion (S1) 4- Good- PT-OP-Q Treatments Start: 05/11/22 15:38 Freq: Status: Active Protocol: Document 08/29/22 11:18 SAK (Rec: 08/29/22 12:03 SAK [id number]) Cardio Equipment Recumbent Stepper (Sci-Fit) Duration (Minutes) 5 Resistance 2.5 Seat Position 13 Treadmill Duration (Minutes) 6 Speed 3 Incline 0 Other cues for core activation, heel /toe pattern, gluteal activation Gym Equipment Shuttle Recovery unilateral squat Resistance 75# (2 new bands) Shuttle Recovery Platform Stable Reps/Time 2x15 alternating Therapeutic Exercises Sitting Exercises sit to stand Equipment Used green ball between knees Reps/Minutes 5x2 Comments cues for core and gluteal activation piriformis stretch Sitting Exercise Name Reviewed HEP Side bilateral Reps/Minutes 30 x3 Comments cued use UE support LE over opp LE HS stretch Sitting Exercise Name HS stretch HEP review Side bilateral Reps/Minutes 30 SH x 4 Comments cued hip hinge and PF felt more HS than calf recruiment stretch Standing Exercises HC stretch Equipment Used NATE Reps/Minutes 1 min Comments passive and active resisted side stepping Standing Exercise Name lateral, fwd, Bwd Side bilateral Resistance blue loop at ankles Reps/Minutes 3x10ft ea PT-OP-T Assessment and Plan Start: 05/11/22 15:38 Freq: Status: Active Protocol: Document 08/29/22 11:18 MARCIO (Rec: 08/29/22 12:03 SAK [id number]) Physical Therapy Assessment Goals Six Impairment unsteady gait on uneven ground Impairment history of falls Pediatric Dermatologist Goal (LTG) Patient will demonstrate improved functional balance to allow him to step over 6 8 hurdles in a row without assistance or LOB, and walk across foam pods, and up/down 4-8 boxes without assistance or LOB to decrease fall risk LTG Duration 10/04/22 Five Impairment impairment with daily activities Snf Goal (LTG) Pt will improve modified Oswestry score from 42 to 20 or less as a measure of improved ease with daily activities. 08/04/22: progressing: Score 21 or 42% or 20 to 39% Impaired (Score 20-39) 08/17 goal progress 39% LTG Duration progressing Four Impairment gait Snf Goal (LTG) Sánchez will walk 1500 feet with SPC on 6 Minute Walk Test for improved safety in community ambulation. 08/04/22: progressing 1230 ft no AD in 6 min 08/17/22: goal met with no AD LTG Duration goal met One Impairment lacks HEP Short Term Goal (STG) Sánchez will be instructed in HEP for lower extremity strength and balance to support therapy services provided in clinic 08/11/22: ongoing STG Duration goal met Snf Goal (LTG) Sánchez will be independently engaged with HEP for LE strength and balance 08/17/22: good goal progress, ongoing progression, needs progression to fitness center machines LTG Duration 10/04/22 Assessment Summary Assessment Patient education with sit to stand for neutral LEs, improved with use of ball between knees with sit to stand. Cues for neutral alignment, occasional knee squeeze and hip rotation stretch to dec discomfort in sitting. Patient demonstrates good understanding. Physical Therapy Plan Frequency and Duration Frequency of Treatment 2x/Week Duration of treatment (weeks) 8 Plan of Care Start Date 08/17/22 Plan of Care End Date 10/04/22 Therapeutic Interventions Therapeutic Interventions Balance Training,Gait Training ,Home Exercise Program,Manual Therapy,Neuromuscular Re- education,Self-Care/Home Management,Soft Tissue Mobilization,Taping, Therapeutic Activities, Therapeutic Exercises Modalities Cold Pack/Ice Massage,Hot Packs Next Visit Focus/Plan Next Note Type Treatment Note Next Visit Plan Continue to progress functional strength, balance, fitness routine including weight machines, further education on biomechanics, alignment.
--- NOTE | 2022-09-12 09:59 | PT-OP ANOTE ---
Pt called, in to much pain to attend appt.
--- NOTE | 2022-09-18 12:33 | PT-OP ANOTE ---
Pt called <24 hrs today, feeling sick and unable to make appt. Cancelled 09/12 appt, in to much pain.
--- NOTE | 2022-09-20 10:28 | PT.OTN ---
Current Diagnoses Other chronic pain (09/20/22) Low back pain, unspecified (09/20/22) Difficulty in walking, not elsewhere classified (09/20/22) Physical Therapy Treatment Note PT-OP-A Visit Information Start: 05/11/22 15:38 Freq: Status: Active Protocol: Document 09/20/22 09:48 SAK (Rec: 09/20/22 10:28 SAK [id number]) Out-Patient Physical Therapy Visit Information Visit Information Visit Type Treatment Note Visit Start Time 09:49 Total Visit Minutes 40 Visit Number 16 Number of BANKRUPTCY JUDGE Visits 0 Evaluation Information Evaluation Date 05/23/22 PT-OP-B Current Condition Start: 05/11/22 15:38 Freq: Status: Active Protocol: Document 05/23/22 10:30 AW (Rec: 05/11/22 15:53 AW [id number]) Current Condition History of Current Condition Onset Date chronic Current Complaints back pain, bilateral leg and foot pain History of Current Condition Sánchez reports chronic back, hip, knee, and foot pain. He has history of TBI/head trauma and diabetes. He had surgery on his left foot/Achilles in 2011 to correct his arch. He was planning to have the same surgery on the right side but was unable due to insurance limitations. He wears diabetic shoes with custom inserts. He typically has his inserts updated yearly but has not had a new pair now in ~4 years. He went to PT in 2017 while living in [place] and found it helpful. PT advised him to walk with a cane due to balance concerns. He uses a cane in either hand (tends to switch every now and then) which is helpful. He denies falls while using an AD. He denies frequent falls but states he is much more likely to fall without AD. He fell in August 2021 while cleaning ears with a q-tip. He went to ED and was found to have ruptured his eardrum. Sánchez has a history of housing insecurity but currently lives in [place] with his 6 yo son. He has full custody. Prior Treatments and Tests Outpatient PT 4 years ago Future Testing and Treatments Planned Follow up with podiatry in ~6 months. Treatment Goals Patient/Caregiver Goals Decrease back and LE pain, decrease falls risk, improve strength to be better able to care for 6 yo son. Personal Factors Other Personal Factors That May Effect Current daily smoker, TBI, Therapy/Recovery anxiety, depression. PT-OP-C Subjective Start: 05/11/22 15:38 Freq: Status: Active Protocol: Document 09/20/22 09:48 SAK (Rec: 09/20/22 10:28 SAK [id number]) OP-PT Subjective Patient Comments Patient Comments Compliant to HEP. Trying to adjust to Bupropion to help him stop smoking, has slowly started to ride his bike. Working on weight loss with help from bung driver, helping manage his DM. Pain in hip has gone from sharp to dull. Went to the pool over the weekend, did lazy river, swam a little, walked. Has been taking short walks PT-OP-D Balance Start: 05/11/22 15:38 Freq: Status: Active Protocol: Document 08/04/22 09:48 SP (Rec: 08/04/22 10:32 SP [id number]) Storm Balance Assessment Total Score Storm Impairment Rating 1 to 19% Impaired (Score 45-55 ) PT-OP-E Functional Tests Start: 05/11/22 15:38 Freq: Status: Active Protocol: Document 08/04/22 09:48 SP (Rec: 08/04/22 10:32 SP [id number]) Functional Tests 6 Minute Walk Test Distance 1230 Device Used none Comments cued TA needed for LB support Five Times Sit to Stand Test Score 20 sec, 19 sec Comments good form, cued increase pace if can (arms across chest) PT-OP-F Manual Assessment Start: 05/11/22 15:38 Freq: Status: Active Protocol: Document 05/23/22 10:30 AW (Rec: 05/23/22 17:51 AW [id number]) Manual Assessments Soft Tissue Assessment Soft Tissue Mobility Assessment Limited passive SLR bilaterally - lacking ~25 degrees to 90. Limited hip IR bilaterally with pain at end range. Limited hip ER on the right. Tender to palpation and bilateral lower lumbar paraspinals. 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 He tends to vault more during RLE stance but is generally steady with AD. PT-OP-H Neuro Start: 05/11/22 15:38 Freq: Status: Active Protocol: Document 05/23/22 10:30 AW (Rec: 05/23/22 17:53 AW [id number]) Sensation Evaluation Comments Summary Comments Pt has chronic neuropathy affecting light touch sensation in bilateral feet in stocking distribution. PT-OP-M Strength Start: 05/11/22 15:38 Freq: Status: Active Protocol: Document 05/23/22 10:30 AW (Rec: 05/24/22 15:02 AW [id number]) Hip Strength Hip Manual Muscle Testing bilat Flexion (L2) 4 Good Extension (S1) 3+ Fair+ Abduction 4 Good External Rotation 4+ Good+ Internal Rotation 4+ Good+ Comments Resisted R hip extension and resisted B IR provoke hip and back pain. Knee Strength Knee Manual Muscle Testing bilat Flexion (S2) 4 Good Extension (L3) 4+ Good+ Ankle/Foot Strength Ankle and Foot Manual Muscle Testing bilat Dorsiflexion (L4) 4 Good Plantarflexion (S1) 4- Good- PT-OP-Q Treatments Start: 05/11/22 15:38 Freq: Status: Active Protocol: Document 09/20/22 09:48 SAK (Rec: 09/20/22 10:28 SAK [id number]) Cardio Equipment Recumbent Stepper (Sci-Fit) Duration (Minutes) 6 Resistance 2.5 Seat Position 13 Treadmill Duration (Minutes) 6 Speed 3 Incline 0 Other cues for core activation, heel /toe pattern, gluteal activation Gym Equipment Cable Column (Body Solid) paloff press Details cued neutral spine, soft knee Resistance #1 no pin Reps/Time 10x2 Leg Curl Resistance 40# Reps/Time x20 leg ext Details cued not full flexion/ ext safey knee comfort good muscle work painfree Resistance 40# Reps/Time x20 abductors Resistance 40# Reps/Time x15 adductors Resistance 40# Reps/Time x15 Rows Details standing Resistance 20# Reps/Time x15 Lat Pull Down Details sitting Resistance 30# Reps/Time x15 Shuttle Recovery unilateral squat Resistance 75# (2 new bands) Shuttle Recovery Platform Stable Reps/Time 2x15 alternating bilateral squat Details cued slow controlled pacing, soft knee top Resistance 125# (4 new bands) Shuttle Recovery Platform Stable Reps/Time x20 total Shuttle Balance red chains Details staggered feet, side to side bal and wt shift Reps/Duration 10 min Comments CG to min assist, harder with right leg in back with staggered. Therapeutic Exercises Standing Exercises resisted side stepping Standing Exercise Name lateral, fwd, Bwd Side bilateral Resistance blue loop at ankles Reps/Minutes 3x10ft ea PT-OP-T Assessment and Plan Start: 05/11/22 15:38 Freq: Status: Active Protocol: Document 09/20/22 09:48 SAK (Rec: 09/20/22 10:28 SAK [id number]) Physical Therapy Assessment Goals Six Impairment unsteady gait on uneven ground Impairment history of falls Nursing Home Goal (LTG) Patient will demonstrate improved functional balance to allow him to step over 6 8 hurdles in a row without assistance or LOB, and walk across foam pods, and up/down 4-8 boxes without assistance or LOB to decrease fall risk LTG Duration 10/04/22 Five Impairment impairment with daily activities [facility] Registered Nurse Goal (LTG) Pt will improve modified Oswestry score from 42 to 20 or less as a measure of improved ease with daily activities. 08/04/22: progressing: Score 21 or 42% or 20 to 39% Impaired (Score 20-39) 08/17 goal progress 39% LTG Duration progressing Four Impairment gait [facility] Registered Nurse Goal (LTG) Sánchez will walk 1500 feet with SPC on 6 Minute Walk Test for improved safety in community ambulation. 08/04/22: progressing 1230 ft no AD in 6 min 08/17/22: goal met with no AD LTG Duration goal met One Impairment lacks HEP Short Term Goal (STG) Sánchez will be instructed in HEP for lower extremity strength and balance to support therapy services provided in clinic 08/11/22: ongoing STG Duration goal met Nursing Home Goal (LTG) Sánchez will be independently engaged with HEP for LE strength and balance 08/17/22: good goal progress, ongoing progression, needs progression to fitness center machines LTG Duration 10/04/22 Progress Towards Goals Progress Towards Goals Progressing Toward Goals Assessment Summary Assessment Continues to progress with strengthening exercises, reporting decreased pain. Only uses cane for community distances now. Compliant to HEP, Physical Therapy Plan Frequency and Duration Frequency of Treatment 2x/Week Duration of treatment (weeks) 8 Plan of Care Start Date 08/17/22 Plan of Care End Date 10/04/22 Therapeutic Interventions Therapeutic Interventions Balance Training,Gait Training ,Home Exercise Program,Manual Therapy,Neuromuscular Re- education,Self-Care/Home Management,Soft Tissue Mobilization,Taping, Therapeutic Activities, Therapeutic Exercises Modalities Cold Pack/Ice Massage,Hot Packs Next Visit Focus/Plan Next Note Type Treatment Note Next Visit Plan Continue to progress functional strength, balance, fitness routine including weight machines, further education on biomechanics, alignment.
== END | disposition home or self-care (01) ==
LOC: PHYS 05-23 09:31
PROVIDERS: Family Provider Family Medicine; PCP Family Medicine; Referring Provider Family Medicine; Visit Provider Family Medicine
DX: M54.50 Low back pain, unspecified (principal); G89.29 Other chronic pain; R26.2 Difficulty in walking, not elsewhere classified
CPT/HCPCS: 97110; 97112; 97116; 97140; 97162; 97530; 97535